=== PATIENT | female | born 1980 | race American Indian/Alaskan Native ===

== ENCOUNTER 2019-09-14 12:06 | Inpatient (IN) | payer MEDICAID ==
[2019-09-14] MEDS ORDERED: IPRATROPIUM 0.02% NEBU 2.5 ML IH ONE (12:32)
[2019-09-14] MEDS ORDERED: ALBUTEROL 2.5 MG/3 ML NEBU IH ONE ×2 (12:32→14:24)
[2019-09-14] MEDS ORDERED: methylPREDNISolone Sod Succinate 125 MG/2 ML INJ IV ONE (12:32)
[2019-09-14 13:02] LABS: Mean Corpuscular HGB Conc 29 % (30-34); Mean Corpuscular Volume 83 fl (79-97); Platelet Count 181 K/mm3 (140-440); Red Blood Count 4.31 M/mm3 (3.65-5.03); Red Cell Distribution Width 18.2 % (13.2-15.2)
[2019-09-14 13:11] LABS: INR 1.02 (0.87-1.13)
[2019-09-14 13:12] LABS: Hematocrit 35.8 % (30.3-42.9); Hemoglobin 10.4 gm/dl (10.1-14.3)
[2019-09-14 13:14] LABS: Partial Thromboplastin Time 27.5 Sec. (24.2-36.6)
[2019-09-14 13:22] LABS: Alanine Aminotransferase 10 units/L (7-56); Albumin 3.4 g/dL (3.9-5); BUN/Creatinine Ratio 30; Blood Urea Nitrogen 12 mg/dL (7-17); Calcium 9.3 mg/dL (8.4-10.2); Hemolysis Index 0
--- NOTE | 2019-09-14 14:19 | XRay Report ---
CHEST 1 VIEW 09/14/2019 1:49 PM INDICATION / CLINICAL INFORMATION: dyspnea. COMPARISON: None available. FINDINGS: Exam is suboptimal secondary to underpenetration from and large body habitus. SUPPORT DEVICES: None. HEART / MEDIASTINUM: Cardiac silhouette is enlarged for AP technique. LUNGS / PLEURA: No significant pulmonary or pleural abnormality. No pneumothorax. ADDITIONAL FINDINGS: No significant additional findings. IMPRESSION: 1. Cardiomegaly without definite CHF Signer Name: Buzz Shen MD Signed: 09/14/2019 2:14 PM Workstation Name: [id number]
--- NOTE | 2019-09-14 14:26 | Emergency Department Report ---
ED Shortness of Breath HPI - General Chief Complaint: Dyspnea/Respdistress Stated Complaint: JANELL Time Seen by Provider: 09/14/19 12:25 Source: EMS Mode of arrival: Ambulatory Limitations: No Limitations - History of Present Illness MD Complaint: shortness of breath -: Gradual, week(s) Severity: severe Pain Scale: 6 Consistency: constant Improves With: rest Worsens With: exertion Known History Of: COPD (Reports non-compliant with home O2) Context: recent URI Associated Symptoms: cough, sputum production - Related Data Allergies Allergy/AdvReac Type Severity Reaction Status Date / Time No Known Allergies Allergy Verified 09/14/19 12:57 ED Review of Systems ROS: Stated complaint: JANELL Other details as noted in HPI Other: GENERAL: No weight change, fatigue, fever, chills, or night sweats SKIN: No changes in skin or hair, no itching, no rashes, no jaundice HEAD: No trauma EYES: No blurriness, tearing, itching, acute visual loss, conjunctival discoloration, or scleral icterus EARS: No hearing loss, tinnitus, vertigo, or earache NOSE: No rhinorrhea, stuffiness, sneezing, itching, or epistaxis MOUTH: No bleeding gums, hoarseness, sore throat, or swelling CARDIAC: No new murmur, chest pain, palpitations, dyspnea on exertion, orthopnea, PND, or edema RESPIRATORY: Shortness of breath, wheeze, cough, sputum production. Denies hemoptysis GI: No nausea, vomiting, dysphagia, diarrhea, constipation, hematemesis, melena, hematochezia, or abdominal pain URINARY: No frequency, urgency, polyuria, dysuria, hematuria, or incontinence MUSCULOSKELETAL: No muscle weakness, joint stiffness, decrease in range of motion, redness, swelling NEUROLOGIC: No headache, syncope, loss of sensation, numbness, tingling, tremors, weakness, paralysis, seizures HEMATOLOGIC: No anemia, easy bruising, bleeding, petechiae, or purpura ENDOCRINE: No hot or cold intolerance, sweating, polyuria, polydipsia or, polyphagia no thyroid problems ED Past Medical Hx - Past Medical History Previous Medical History?: Yes Hx Hypertension: Yes Hx CVA: No Hx Heart Attack/AMI: No Hx Congestive Heart Failure: Yes Hx Diabetes: No Hx Deep Vein Thrombosis: No Hx Pulmonary Embolism: No Hx GERD: No Hx Liver Disease: No Hx Renal Disease: No Hx of Cancer: No Hx Sickle Cell Disease: No Hx Arthritis: No Hx Headaches / Migraines: No Hx Seizures: No Hx Kidney Stones: No Hx Psychiatric Treatment: No Hx Asthma: No Hx COPD: No Hx Tuberculosis: No Hx Dementia: No Hx HIV: No - Surgical History Past Surgical History?: Yes Hx Coronary Stent: No Hx Open Heart Surgery: No Hx Internal Defibrillator: No Hx Cholecystectomy: No Hx Appendectomy: No Hx Breast Surgery: No - Social History Smoking Status: Never Smoker Substance Use Type: None ED Physical Exam - General Limitations: No Limitations - Other Other exam information: GENERAL: Patient in no acute distress HEAD: Normocephalic, atraumatic EYES: PERRLA, EOM intact, no scleral icterus, no conjunctival hemorrhage, visual arnold and acuity wnl NOSE: No tenderness, discharge, sinus tenderness MOUTH: No erythema, bleeding, exudate HEART: Regular rate and rhythm, no murmur, S1-S2 are auscultated, no edema, pulses are symmetric LUNGS: Mild bilateral wheezing. No respiratory distress. Bilateral breath sounds, No tachypnea, No retractions, No rales, rhonchi ABDOMEN: Normal bowel sounds, abdomen soft, no tenderness, no rebound, no guarding, no distention, no masses, no CVA tenderness MUSCULOSKELETAL: Normal joint range of motion, no redness, no swelling, no tenderness NEUROLOGIC: GCS 15, Alert and Oriented, Cranial nerves intact, normal sensation, normal strength, no cerebellar deficit, NIHSS 0 PSYCHIATRIC: No homicidal or suicidal ideation, no anxiety, no depression, no hallucinations SKIN: Skin is warm and dry, no wounds, no rashes ED Course Vital Signs 09/14/19 09/14/19 09/14/19 12:15 12:27 12:30 Temperature 98.6 F Pulse Rate 99 H 100 H 99 H Pulse Rate [ Anterior Bilateral Throughout] Respiratory 13 39 H 35 H Rate Respiratory Rate [Anterior Bilateral Throughout] Blood Pressure 159/67 159/67 O2 Sat by Pulse 90 100 91 Oximetry 09/14/19 09/14/19 09/14/19 12:37 12:46 13:00 Temperature Pulse Rate 100 H 94 H Pulse Rate [ Anterior Bilateral Throughout] Respiratory 18 27 H 36 H Rate Respiratory Rate [Anterior Bilateral Throughout] Blood Pressure 159/67 159/67 O2 Sat by Pulse 100 92 95 Oximetry 09/14/19 09/14/19 09/14/19 13:02 13:16 13:30 Temperature Pulse Rate 98 H 98 H Pulse Rate [ 93 H Anterior Bilateral Throughout] Respiratory 27 H 35 H Rate Respiratory 28 H Rate [Anterior Bilateral Throughout] Blood Pressure 111/69 111/69 O2 Sat by Pulse 87 89 Oximetry 09/14/19 09/14/19 09/14/19 13:46 14:00 14:11 Temperature Pulse Rate 98 H 95 H 96 H Pulse Rate [ Anterior Bilateral Throughout] Respiratory 26 H 38 H 33 H Rate Respiratory Rate [Anterior Bilateral Throughout] Blood Pressure 111/69 111/69 129/101 O2 Sat by Pulse 84 85 93 Oximetry 09/14/19 09/14/19 09/14/19 14:16 14:30 14:46 Temperature Pulse Rate 99 H 99 H 99 H Pulse Rate [ Anterior Bilateral Throughout] Respiratory 30 H 29 H 28 H Rate Respiratory Rate [Anterior Bilateral Throughout] Blood Pressure 129/101 129/101 129/101 O2 Sat by Pulse 92 91 92 Oximetry 09/14/19 09/14/19 09/14/19 15:00 15:16 15:30 Temperature Pulse Rate 98 H 101 H 100 H Pulse Rate [ Anterior Bilateral Throughout] Respiratory 35 H 38 H 34 H Rate Respiratory Rate [Anterior Bilateral Throughout] Blood Pressure 149/86 149/86 149/86 O2 Sat by Pulse 90 91 89 Oximetry 09/14/19 09/14/19 09/14/19 15:41 15:46 16:00 Temperature Pulse Rate 101 H 101 H Pulse Rate [ 106 H Anterior Bilateral Throughout] Respiratory 40 H 34 H Rate Respiratory 30 H Rate [Anterior Bilateral Throughout] Blood Pressure 149/86 152/83 O2 Sat by Pulse 85 85 Oximetry 09/14/19 09/14/19 09/14/19 16:16 16:28 16:30 Temperature Pulse Rate 95 H 98 H 97 H Pulse Rate [ Anterior Bilateral Throughout] Respiratory 33 H 27 H 29 H Rate Respiratory Rate [Anterior Bilateral Throughout] Blood Pressure 152/83 152/83 152/83 O2 Sat by Pulse 80 L 94 94 Oximetry 09/14/19 09/14/19 09/14/19 16:46 17:00 17:16 Temperature Pulse Rate 96 H 91 H 94 H Pulse Rate [ Anterior Bilateral Throughout] Respiratory 34 H 32 H 32 H Rate Respiratory Rate [Anterior Bilateral Throughout] Blood Pressure 152/83 147/80 147/80 O2 Sat by Pulse 91 94 92 Oximetry 09/14/19 09/14/19 09/14/19 17:30 17:46 18:00 Temperature Pulse Rate 94 H 101 H 101 H Pulse Rate [ Anterior Bilateral Throughout] Respiratory 33 H 38 H 31 H Rate Respiratory Rate [Anterior Bilateral Throughout] Blood Pressure 147/80 147/80 171/93 O2 Sat by Pulse 91 90 85 Oximetry 09/14/19 18:15 Temperature Pulse Rate 106 H Pulse Rate [ Anterior Bilateral Throughout] Respiratory 20 Rate Respiratory Rate [Anterior Bilateral Throughout] Blood Pressure 171/93 O2 Sat by Pulse 91 Oximetry ED Medical Decision Making - Lab Data Result diagrams: 09/15/19 07:35 09/15/19 07:35 Respiratory reports that the patient's pCO2 level is approximately ~130s. - EKG Data When compared to previous EKG there are: no significant change - Radiology Data Radiology results: report reviewed - Medical Decision Making Patient comfortable. Updated with results. Plan admit for further evaluation. Hospitalist updated and accepts admission. Critical Care Time: Yes Critical care time in (mins) excluding proc time.: 42 Critical care attestation.: If time is entered above; I have spent that time in minutes in the direct care of this critically ill patient, excluding procedure time. 42 ED Disposition Clinical Impression: COPD exacerbation, Acute respiratory failure with hypoxia and hypercarbia Disposition: OP ADMIT IP TO THIS HOSP Is pt being admited?: Yes Condition: Stable
[2019-09-14 14:29] LABS: Anisocytosis Few; Large Platelets Rare; Platelet Estimate Consistent w Auto; Total Cells Counted 100
[2019-09-14] MEDS ORDERED: ACETAMINOPHEN 325 MG TAB PO PRN (15:00)
[2019-09-14] MEDS ORDERED: ONDANSETRON 4 MG/2 ML INJ IV PRN ×2 (15:00→21:37)
[2019-09-14] MEDS ORDERED: METOCLOPRAMIDE 10 MG/2 ML INJ IV PRN (21:37)
--- NOTE | 2019-09-14 21:37 | History and Physical Report ---
History of Present Illness Date of examination: 09/14/19 Date of admission: 09/14/19 15:00 Chief complaint: SOB for one day. History of present illness: Increasing SOB for 1 day.Associated with Wheezing.Cough productive of mucoid sputum.Patient has pickwickian syndrome.Patient with Morbid obesity weighing more than 500 lbs.No fever or chills.No recent travel.No exacerbating or relieving factors. Past Medical History Previous Medical History?: Yes Hypertension: Yes Congestive Heart Failure: Yes Surgical History No Social History Smoking Status: Never Smoker Substance Use Type: None Family History Htn Review of Systems ROS: Stated complaint: JANELL Other details as noted in HPI Medications and Allergies Allergies Allergy/AdvReac Type Severity Reaction Status Date / Time No Known Allergies Allergy Verified 09/14/19 12:57 Active Meds: Active Medications Acetaminophen (Tylenol) 650 mg PO Q4H PRN PRN Reason: Pain MILD(1-3)/Fever >100.5/DOMINIQUE Ondansetron HCl (Zofran) 4 mg IV Q8H PRN PRN Reason: Nausea And Vomiting Sodium Chloride (Sodium Chloride Flush Syringe 10 Ml) 10 ml IV BID DEMOND Sodium Chloride (Sodium Chloride Flush Syringe 10 Ml) 10 ml IV PRN PRN PRN Reason: LINE FLUSH Exam - Constitutional Vitals: Temp Pulse Resp BP Pulse Ox 98.2 F 96 H 20 134/68 93 09/14/19 20:10 09/14/19 20:00 09/14/19 18:15 09/14/19 20:00 09/14/19 20:00 General appearance: Present: severe distress, well-nourished - EENT Eyes: Present: PERRL ENT: hearing intact, clear oral mucosa - Neck Neck: Present: supple, normal ROM - Respiratory Respiratory effort: normal Respiratory: bilateral: diminished, rhonchi, wheezing - Cardiovascular Heart rate: 98 Rhythm: regular Heart Sounds: Present: S1 & S2. Absent: rub, click - Extremities Extremities: no ischemia, pulses intact, pulses symmetrical, No edema Extremity abnormal: edema Peripheral Pulses: within normal limits - Abdominal General gastrointestinal: Present: soft, non-tender, non-distended, normal bowel sounds Female genitourinary: Present: normal - Integumentary Integumentary: Present: clear, warm, dry - Musculoskeletal Musculoskeletal: gait normal, strength equal bilaterally - Psychiatric Psychiatric: appropriate mood/affect, intact judgment & insight - Neurologic Neurologic: CNII-XII intact, moves all extremities - Allied Health Allied health notes reviewed: nursing, case management Results - Labs CBC & Chem 7: 09/14/19 12:43 09/14/19 12:43 Labs: Laboratory Last Values WBC 11.4 K/mm3 (4.5-11.0) H 09/14/19 12:43 RBC 4.31 M/mm3 (3.65-5.03) 09/14/19 12:43 Hgb 10.4 gm/dl (10.1-14.3) 09/14/19 12:43 Hct 35.8 % (30.3-42.9) 09/14/19 12:43 MCV 83 fl (79-97) 09/14/19 12:43 MCH 24 pg (28-32) L 09/14/19 12:43 MCHC 29 % (30-34) L 09/14/19 12:43 RDW 18.2 % (13.2-15.2) H 09/14/19 12:43 Plt Count 181 K/mm3 (140-440) 09/14/19 12:43 Add Manual Diff Complete 09/14/19 12:43 Total Counted 100 09/14/19 12:43 Seg Neuts % (Manual) 84.0 % (40.0-70.0) H 09/14/19 12:43 Band Neutrophils % 0 % 09/14/19 12:43 Lymphocytes % (Manual) 11.0 % (13.4-35.0) L 09/14/19 12:43 Reactive Lymphs % (Man) 0 % 09/14/19 12:43 Monocytes % (Manual) 3.0 % (0.0-7.3) 09/14/19 12:43 Eosinophils % (Manual) 1.0 % (0.0-4.3) 09/14/19 12:43 Basophils % (Manual) 1.0 % (0.0-1.8) 09/14/19 12:43 Metamyelocytes % 0 % 09/14/19 12:43 Myelocytes % 0 % 09/14/19 12:43 Promyelocytes % 0 % 09/14/19 12:43 Blast Cells % 0 % 09/14/19 12:43 Nucleated RBC % 3.0 % (0.0-0.9) H 09/14/19 12:43 Seg Neutrophils # Man 9.6 K/mm3 (1.8-7.7) H 09/14/19 12:43 Band Neutrophils # 0.0 K/mm3 09/14/19 12:43 Lymphocytes # (Manual) 1.3 K/mm3 (1.2-5.4) 09/14/19 12:43 Abs React Lymphs (Man) 0.0 K/mm3 09/14/19 12:43 Monocytes # (Manual) 0.3 K/mm3 (0.0-0.8) 09/14/19 12:43 Eosinophils # (Manual) 0.1 K/mm3 (0.0-0.4) 09/14/19 12:43 Basophils # (Manual) 0.1 K/mm3 (0.0-0.1) 09/14/19 12:43 Metamyelocytes # 0.0 K/mm3 09/14/19 12:43 Myelocytes # 0.0 K/mm3 09/14/19 12:43 Promyelocytes # 0.0 K/mm3 09/14/19 12:43 Blast Cells # 0.0 K/mm3 09/14/19 12:43 WBC Morphology Not Reportable 09/14/19 12:43 Hypersegmented Neuts Not Reportable 09/14/19 12:43 Hyposegmented Neuts Not Reportable 09/14/19 12:43 Hypogranular Neuts Not Reportable 09/14/19 12:43 Smudge Cells Not Reportable 09/14/19 12:43 Toxic Granulation Not Reportable 09/14/19 12:43 Toxic Vacuolation Not Reportable 09/14/19 12:43 Dohle Bodies Not Reportable 09/14/19 12:43 Pelger-Huet Anomaly Not Reportable 09/14/19 12:43 Antione Rods Not Reportable 09/14/19 12:43 Platelet Estimate Consistent w auto 09/14/19 12:43 Clumped Platelets Not Reportable 09/14/19 12:43 Plt Clumps, EDTA Not Reportable 09/14/19 12:43 Large Platelets Rare 09/14/19 12:43 Giant Platelets Not Reportable 09/14/19 12:43 Platelet Satelliting Not Reportable 09/14/19 12:43 Plt Morphology Comment Not Reportable 09/14/19 12:43 RBC Morphology Not Reportable 09/14/19 12:43 Dimorphic RBCs Not Reportable 09/14/19 12:43 Polychromasia Not Reportable 09/14/19 12:43 Hypochromasia Not Reportable 09/14/19 12:43 Poikilocytosis Not Reportable 09/14/19 12:43 Anisocytosis Few 09/14/19 12:43 Microcytosis Not Reportable 09/14/19 12:43 Macrocytosis Not Reportable 09/14/19 12:43 Spherocytes Not Reportable 09/14/19 12:43 Pappenheimer Bodies Not Reportable 09/14/19 12:43 Sickle Cells Not Reportable 09/14/19 12:43 Target Cells Not Reportable 09/14/19 12:43 Tear Drop Cells Not Reportable 09/14/19 12:43 Ovalocytes Not Reportable 09/14/19 12:43 Helmet Cells Not Reportable 09/14/19 12:43 [place] Bodies Not Reportable 09/14/19 12:43 [place] Rings Not Reportable 09/14/19 12:43 [place] Cells Not Reportable 09/14/19 12:43 Bite Cells Not Reportable 09/14/19 12:43 Crenated Cell Not Reportable 09/14/19 12:43 Elliptocytes Not Reportable 09/14/19 12:43 Acanthocytes (Spur) Not Reportable 09/14/19 12:43 Rouleaux Not Reportable 09/14/19 12:43 Hemoglobin C Crystals Not Reportable 09/14/19 12:43 Schistocytes Not Reportable 09/14/19 12:43 Malaria parasites Not Reportable 09/14/19 12:43 [place] Bodies Not Reportable 09/14/19 12:43 Hem Pathologist Commnt No 09/14/19 12:43 PT 13.3 Sec. (12.2-14.9) 09/14/19 12:43 INR 1.02 (0.87-1.13) 09/14/19 12:43 APTT 27.5 Sec. (24.2-36.6) 09/14/19 12:43 POC ABG pH 7.212 (7.35-7.45) L 09/14/19 13:58 POC ABG pO2 55 (80-105) L 09/14/19 13:58 FiO2 40 % 09/14/19 13:58 Sodium 143 mmol/L (137-145) 09/14/19 12:43 Potassium 4.7 mmol/L (3.6-5.0) 09/14/19 12:43 Chloride 88.5 mmol/L (98-107) L 09/14/19 12:43 Carbon Dioxide 44 mmol/L (22-30) H* 09/14/19 12:43 Anion Gap 15 mmol/L 09/14/19 12:43 BUN 12 mg/dL (7-17) 09/14/19 12:43 Creatinine 0.4 mg/dL (0.7-1.2) L 09/14/19 12:43 Estimated GFR > 60 ml/min 09/14/19 12:43 BUN/Creatinine Ratio 30 % 09/14/19 12:43 Glucose 100 mg/dL (65-100) 09/14/19 12:43 Calcium 9.3 mg/dL (8.4-10.2) 09/14/19 12:43 Total Bilirubin 0.40 mg/dL (0.1-1.2) 09/14/19 12:43 AST 11 units/L (5-40) 09/14/19 12:43 ALT 10 units/L (7-56) 09/14/19 12:43 Alkaline Phosphatase 65 units/L (35-129) 09/14/19 12:43 Total Creatine Kinase 47 units/L (30-135) 09/14/19 12:43 Troponin T < 0.010 ng/mL (0.00-0.029) 09/14/19 12:43 NT-Pro-B Natriuret Pep 112.7 pg/mL (0-450) 09/14/19 12:43 Total Protein 9.0 g/dL (6.3-8.2) H 09/14/19 12:43 Albumin 3.4 g/dL (3.9-5) L 09/14/19 12:43 Albumin/Globulin Ratio 0.6 % 09/14/19 12:43 - Imaging and Cardiology EKG: report reviewed Chest x-ray: report reviewed (Cardiomegaly without CHF) Assessment and Plan Assessment and plan: CCT 35 min Advance Directives: Yes (Full code) VTE prophylaxis?: Chemical Plan of care discussed with patient/family: Yes - Patient Problems (1) Acute respiratory failure with hypoxia and hypercarbia Current Visit: Yes Status: Acute Plan to address problem: Patient on Bipap Intubation if necessary IV Solumedrol Neb Tx RTC and PRN IV Levaquin for now Admission to [facility] Clinical Appeals Specialist/pulmonary consult (2) COPD exacerbation Current Visit: Yes Status: Acute Plan to address problem: Neb tx IV Solumedrol and IVantibiotics Bipap for now Intubation if necessary (3) CHF (congestive heart failure) Current Visit: Yes Status: Chronic Qualifiers: Heart failure type: combined systolic and diastolic Heart failure chronicity: acute on chronic Qualified Code(s): I50.43 - Acute on chronic combined systolic (congestive) and diastolic (congestive) heart failure Plan to address problem: IV lasix for now (4) DVT prophylaxis Current Visit: Yes Status: Acute Plan to address problem: On Lovenox and GI prophylaxis
[2019-09-14] MEDS ORDERED: IPRATROPIUM/ALBUTEROL SULFATE 3 ML AMPUL.NEB IH PRN (21:39)
[2019-09-14] MEDS ORDERED: ALBUTEROL 2.5 MG/3 ML NEBU IH PRN ×2 (21:39→23:15)
[2019-09-14] MEDS: FAMOTIDINE 20 MG/2 ML INJ IV SCH (22:27)
[2019-09-14] MEDS: methylPREDNISolone Sod Succinate 125 MG/2 ML INJ IV SCH (22:27)
[2019-09-15] MEDS: methylPREDNISolone Sod Succinate 125 MG/2 ML INJ IV SCH ×3 (05:23→22:41)
[2019-09-15] MEDS: IPRATROPIUM/ALBUTEROL SULFATE 3 ML AMPUL.NEB IH SCH ×4 (08:22→23:03)
[2019-09-15 08:31] LABS: Mean Corpuscular HGB Conc 29 % (30-34); Mean Corpuscular Volume 83 fl (79-97); Platelet Count 182 K/mm3 (140-440); Red Blood Count 4.09 M/mm3 (3.65-5.03)
[2019-09-15 08:33] LABS: Hematocrit 34.1 % (30.3-42.9); Hemoglobin 9.7 gm/dl (10.1-14.3)
[2019-09-15 08:45] LABS: Alanine Aminotransferase 9 units/L (7-56); Albumin 3.3 g/dL (3.9-5); BUN/Creatinine Ratio 30; Blood Urea Nitrogen 12 mg/dL (7-17); Calcium 9.6 mg/dL (8.4-10.2); Hemolysis Index 3
[2019-09-15 09:29] LABS: Basophils % (Manual) 0 % (0.0-1.8); Eosinophils % (Manual) 0 % (0.0-4.3); Total Cells Counted 100
[2019-09-15 09:31] LABS: Anisocytosis Few; Hypochromasia 1+; Large Platelets Rare
[2019-09-15 09:32] LABS: Platelet Estimate Consistent w Auto
[2019-09-15] MEDS ORDERED: POTASSIUM CHLORIDE ER 20 MEQ TAB PO SCH (10:00)
[2019-09-15] MEDS: FAMOTIDINE 20 MG/2 ML INJ IV SCH ×2 (10:00→22:38)
[2019-09-15] MEDS ORDERED: ALBUTEROL 2.5 MG/3 ML NEBU IH PRN (16:08)
--- NOTE | 2019-09-15 16:38 | Progress Note ---
Assessment and Plan Assessment and plan: --Acute respiratory failure with hypoxia and hypercarbia Current Visit: Yes Status: Acute Patient on Bipap , oxygen titrate O2 sats to more than 90% Probably secondary to obesity hypoventilation and obstructive sleep apnea Intubate as needed, and pulmonary following Nebulizers, IV steroids, IV antibiotics, inhalation steroids BiPAP as needed, advised weight reduction and medically stable, pulmonary critical following --Obesity hypoventilation syndrome; Current Visit: Yes Status: Acute Oxygen nebulizers and IV steroids and antibiotics and inhalation steroids --obstructive sleep apnea: Current Visit: Yes Status: Acute CPAP BiPAP at night, and daytime as needed. Needs outpatient sleep study -- COPD exacerbation. Current Visit: Yes Status: Acute Neb tx IV Solumedrol and IVantibiotics Oxygen titrated to more than 90%, IV steroids Nebulizers, supportive care -- CHF (congestive heart failure) Current Visit: Yes Status: Chronic IV lasix for now, echocardiogram, LV function ejection fraction. -- Morbid obesity BMI 73.2. Current Visit: Yes Status: Chronic. Advised weight reduction when medically stable Recommend outpatient bariatric surgical evaluation for weight reduction program when medically stable --DVT prophylaxis. Current Visit: Yes Status: Acute On Lovenox GI prophylaxis; Pepcid. --Full code Status Monitor clinically and adjust the management as needed Discharge planning. Case management Plan of care is reviewed with the patient and the family members at the bedside as well as her nurse Critical care time 32 minutes History Interval history: Patient was admitted with worsening shortness of breath and respiratory distress Requiring BiPAP, patient feels slightly better today Still is short of breath and increased wheezing Morbidly obese 59-year-old female patient Alert awake oriented 3 Vital signs reviewed Hospitalist Physical - Constitutional Vitals: Temp Pulse Resp BP Pulse Ox 97.8 F 93 H 20 113/60 91 09/15/19 12:00 09/15/19 16:03 09/15/19 16:03 09/15/19 08:17 09/15/19 16:09 General appearance: Present: severe distress, well-nourished - EENT Eyes: Present: PERRL, EOM intact - Neck Neck: Present: supple, normal ROM - Respiratory Respiratory effort: labored Respiratory: bilateral: diminished, rhonchi, negative: rales, wheezing - Cardiovascular Rhythm: regular Heart Sounds: Present: S1 & S2 - Extremities Extremities: no ischemia, No edema - Abdominal General gastrointestinal: soft, non-tender, non-distended, normal bowel sounds, hypoactive bowel sounds - Integumentary Integumentary: Present: clear, warm - Psychiatric Psychiatric: appropriate mood/affect, cooperative - Neurologic Neurologic: moves all extremities Results - Labs CBC & Chem 7: 09/15/19 07:35 09/15/19 07:35 Labs: Laboratory Last Values WBC 12.0 K/mm3 (4.5-11.0) H 09/15/19 07:35 RBC 4.09 M/mm3 (3.65-5.03) 09/15/19 07:35 Hgb 9.7 gm/dl (10.1-14.3) L 09/15/19 07:35 Hct 34.1 % (30.3-42.9) 09/15/19 07:35 MCV 83 fl (79-97) 09/15/19 07:35 MCH 24 pg (28-32) L 09/15/19 07:35 MCHC 29 % (30-34) L 09/15/19 07:35 RDW 18.0 % (13.2-15.2) H 09/15/19 07:35 Plt Count 182 K/mm3 (140-440) 09/15/19 07:35 Add Manual Diff Complete 09/15/19 07:35 Total Counted 100 09/15/19 07:35 Seg Neutrophils % Consumer Experience Consultant 09/15/19 07:35 Seg Neuts % (Manual) 91.0 % (40.0-70.0) H 09/15/19 07:35 Band Neutrophils % 0 % 09/15/19 07:35 Lymphocytes % (Manual) 5.0 % (13.4-35.0) L 09/15/19 07:35 Reactive Lymphs % (Man) 0 % 09/15/19 07:35 Monocytes % (Manual) 2.0 % (0.0-7.3) 09/15/19 07:35 Eosinophils % (Manual) 0 % (0.0-4.3) 09/15/19 07:35 Basophils % (Manual) 0 % (0.0-1.8) 09/15/19 07:35 Metamyelocytes % 2.0 % 09/15/19 07:35 Myelocytes % 0 % 09/15/19 07:35 Promyelocytes % 0 % 09/15/19 07:35 Blast Cells % 0 % 09/15/19 07:35 Nucleated RBC % 2.0 % (0.0-0.9) H 09/15/19 07:35 Seg Neutrophils # Man 10.9 K/mm3 (1.8-7.7) H 09/15/19 07:35 Band Neutrophils # 0.0 K/mm3 09/15/19 07:35 Lymphocytes # (Manual) 0.6 K/mm3 (1.2-5.4) L 09/15/19 07:35 Abs React Lymphs (Man) 0.0 K/mm3 09/15/19 07:35 Monocytes # (Manual) 0.2 K/mm3 (0.0-0.8) 09/15/19 07:35 Eosinophils # (Manual) 0.0 K/mm3 (0.0-0.4) 09/15/19 07:35 Basophils # (Manual) 0.0 K/mm3 (0.0-0.1) 09/15/19 07:35 Metamyelocytes # 0.2 K/mm3 09/15/19 07:35 Myelocytes # 0.0 K/mm3 09/15/19 07:35 Promyelocytes # 0.0 K/mm3 09/15/19 07:35 Blast Cells # 0.0 K/mm3 09/15/19 07:35 WBC Morphology Not Reportable 09/15/19 07:35 Hypersegmented Neuts Not Reportable 09/15/19 07:35 Hyposegmented Neuts Not Reportable 09/15/19 07:35 Hypogranular Neuts Not Reportable 09/15/19 07:35 Smudge Cells Not Reportable 09/15/19 07:35 Toxic Granulation Not Reportable 09/15/19 07:35 Toxic Vacuolation Not Reportable 09/15/19 07:35 Dohle Bodies Not Reportable 09/15/19 07:35 Pelger-Huet Anomaly Not Reportable 09/15/19 07:35 Antione Rods Not Reportable 09/15/19 07:35 Platelet Estimate Consistent w auto 09/15/19 07:35 Clumped Platelets Not Reportable 09/15/19 07:35 Plt Clumps, EDTA Not Reportable 09/15/19 07:35 Large Platelets Rare 09/15/19 07:35 Giant Platelets Not Reportable 09/15/19 07:35 Platelet Satelliting Not Reportable 09/15/19 07:35 Plt Morphology Comment Not Reportable 09/15/19 07:35 RBC Morphology Not Reportable 09/15/19 07:35 Dimorphic RBCs Not Reportable 09/15/19 07:35 Polychromasia Not Reportable 09/15/19 07:35 Hypochromasia 1+ 09/15/19 07:35 Poikilocytosis Not Reportable 09/15/19 07:35 Anisocytosis Few 09/15/19 07:35 Microcytosis Not Reportable 09/15/19 07:35 Macrocytosis Not Reportable 09/15/19 07:35 Spherocytes Not Reportable 09/15/19 07:35 Pappenheimer Bodies Not Reportable 09/15/19 07:35 Sickle Cells Not Reportable 09/15/19 07:35 Target Cells Not Reportable 09/15/19 07:35 Tear Drop Cells Not Reportable 09/15/19 07:35 Ovalocytes Not Reportable 09/15/19 07:35 Helmet Cells Not Reportable 09/15/19 07:35 [place] Bodies Not Reportable 09/15/19 07:35 [place] Rings Not Reportable 09/15/19 07:35 [place] Cells Not Reportable 09/15/19 07:35 Bite Cells Not Reportable 09/15/19 07:35 Crenated Cell Not Reportable 09/15/19 07:35 Elliptocytes Not Reportable 09/15/19 07:35 Acanthocytes (Spur) Not Reportable 09/15/19 07:35 Rouleaux Not Reportable 09/15/19 07:35 Hemoglobin C Crystals Not Reportable 09/15/19 07:35 Schistocytes Not Reportable 09/15/19 07:35 Malaria parasites Not Reportable 09/15/19 07:35 [place] Bodies Not Reportable 09/15/19 07:35 Hem Pathologist Commnt No 09/15/19 07:35 PT 13.3 Sec. (12.2-14.9) 09/14/19 12:43 INR 1.02 (0.87-1.13) 09/14/19 12:43 APTT 27.5 Sec. (24.2-36.6) 09/14/19 12:43 POC ABG pH 7.212 (7.35-7.45) L 09/14/19 13:58 POC ABG pO2 55 (80-105) L 09/14/19 13:58 FiO2 40 % 09/14/19 13:58 Sodium 146 mmol/L (137-145) H 09/15/19 07:35 Potassium 5.2 mmol/L (3.6-5.0) H 09/15/19 07:35 Chloride 88.7 mmol/L (98-107) L 09/15/19 07:35 Carbon Dioxide 49 mmol/L (22-30) H* 09/15/19 07:35 Anion Gap 14 mmol/L 09/15/19 07:35 BUN 12 mg/dL (7-17) 09/15/19 07:35 Creatinine 0.4 mg/dL (0.7-1.2) L 09/15/19 07:35 Estimated GFR > 60 ml/min 09/15/19 07:35 BUN/Creatinine Ratio 30 % 09/15/19 07:35 Glucose 101 mg/dL (65-100) H 09/15/19 07:35 Hemoglobin A1c 5.5 % (4-6) 09/14/19 12:43 Calcium 9.6 mg/dL (8.4-10.2) 09/15/19 07:35 Total Bilirubin 0.30 mg/dL (0.1-1.2) 09/15/19 07:35 AST 11 units/L (5-40) 09/15/19 07:35 ALT 9 units/L (7-56) 09/15/19 07:35 Alkaline Phosphatase 65 units/L (35-129) 09/15/19 07:35 Total Creatine Kinase 47 units/L (30-135) 09/14/19 12:43 Troponin T < 0.010 ng/mL (0.00-0.029) 09/14/19 12:43 NT-Pro-B Natriuret Pep 112.7 pg/mL (0-450) 09/14/19 12:43 Total Protein 7.8 g/dL (6.3-8.2) 09/15/19 07:35 Albumin 3.3 g/dL (3.9-5) L 09/15/19 07:35 Albumin/Globulin Ratio 0.7 % 09/15/19 07:35 Active Medications - Current Medications Current Medications: Generic Name Dose Route Start Last Admin Trade Name Freq PRN Reason Stop Dose Admin Acetaminophen 650 mg 09/14/19 21:37 Tylenol PO Q4H PRN Pain MILD(1-3)/Fever >100.5/DOMINIQUE Albuterol 2.5 mg 09/15/19 16:08 Proventil IH Q4H PRN Shortness Of Breath/ Wheezing Albuterol/Ipratropium 1 ampul 09/15/19 20:00 Duoneb *Not For Prn Use* IH TIDRT [facility] Arformoterol Tartrate 15 mcg 09/15/19 20:00 Brovana Nebu IH Q12HRT [facility] Budesonide 0.5 mg 09/15/19 20:00 Pulmicort IH Q12HRT [facility] Enoxaparin Sodium 40 mg 09/15/19 22:00 Enoxaparin SUB-Q QDAY@2200 [facility] Famotidine 20 mg 09/14/19 22:00 09/15/19 10:00 Pepcid IV 20 mg BID [facility] Administration Furosemide 40 mg 09/15/19 18:00 Lasix IV 0600,1800 [facility] Hydromorphone HCl 0.5 mg 09/14/19 21:37 Dilaudid IV Q3H PRN Pain , Severe (7-10) Levofloxacin/Dextrose 750 mg in 150 mls @ 100 mls/hr 09/14/19 22:00 09/14/19 22:27 Levaquin 750mg/150ml IV 100 mls/hr Q24HR@2200 [facility] Administration Protocol Methylprednisolone Sodium Succinate 125 mg 09/14/19 22:00 09/15/19 14:01 Solu-Medrol IV 125 mg Q8HR [facility] Administration Metoclopramide HCl 10 mg 09/14/19 21:37 Reglan IV Q6H PRN Nausea And Vomiting Ondansetron HCl 4 mg 09/14/19 21:37 Zofran IV Q8H PRN Nausea And Vomiting Oxycodone/Acetaminophen 1 tab 09/14/19 21:37 Percocet 5/325 PO Q6H PRN Pain, Moderate (4-6) Sodium Chloride 10 ml 09/14/19 22:00 09/15/19 10:00 Sodium Chloride Flush Syringe 10 Ml IV 10 ml BID [facility] Administration Sodium Chloride 10 ml 09/14/19 21:37 Sodium Chloride Flush Syringe 10 Ml IV PRN PRN LINE FLUSH
--- NOTE | 2019-09-15 17:47 | Consultation ---
History of Present Illness Consult date: 09/15/19 Requesting physician: BRITTANY EDGAR Reason for consult: dyspnea History of present illness: Morbidly obese 39 y/o female admitted with acute on chronic respiratory failure. Wears 4 liters at home. Currently on High Flow Nasal cannula at 35 and 100% FiO2. Patient does not know her diagnoses outside of CHF. She does smoke marijuana and cigarettes. Family at bedside. Past History Past Medical History: other (CHF and morbidly obese) Social history: smoking Medications and Allergies Allergies Allergy/AdvReac Type Severity Reaction Status Date / Time No Known Allergies Allergy Verified 09/14/19 12:57 Active Meds: Active Medications Acetaminophen (Tylenol) 650 mg PO Q4H PRN PRN Reason: Pain MILD(1-3)/Fever >100.5/DOMINIQUE Albuterol (Proventil) 2.5 mg IH Q4H PRN PRN Reason: Shortness Of Breath/ Wheezing Albuterol/Ipratropium (Duoneb *Not For Prn Use*) 1 ampul IH TIDRT [facility] Arformoterol Tartrate (Brovana Nebu) 15 mcg IH Q12HRT [facility] Budesonide (Pulmicort) 0.5 mg IH Q12HRT [facility] Enoxaparin Sodium (Enoxaparin) 40 mg SUB-Q QDAY@2200 [facility] Famotidine (Pepcid) 20 mg IV BID [facility] Last Admin: 09/15/19 10:00 Dose: 20 mg Documented by: Furosemide (Lasix) 40 mg IV 0600,1800 [facility] Hydromorphone HCl (Dilaudid) 0.5 mg IV Q3H PRN PRN Reason: Pain , Severe (7-10) Levofloxacin/Dextrose (Levaquin 750mg/150ml) 750 mg in 150 mls @ 100 mls/hr IV Q24HR@2200 [facility]; Protocol Last Admin: 09/14/19 22:27 Dose: 100 mls/hr Documented by: Methylprednisolone Sodium Succinate (Solu-Medrol) 80 mg IV Q6H [facility] Metoclopramide HCl (Reglan) 10 mg IV Q6H PRN PRN Reason: Nausea And Vomiting Ondansetron HCl (Zofran) 4 mg IV Q8H PRN PRN Reason: Nausea And Vomiting Oxycodone/Acetaminophen (Percocet 5/325) 1 tab PO Q6H PRN PRN Reason: Pain, Moderate (4-6) Sodium Chloride (Sodium Chloride Flush Syringe 10 Ml) 10 ml IV BID [facility] Last Admin: 09/15/19 10:00 Dose: 10 ml Documented by: Sodium Chloride (Sodium Chloride Flush Syringe 10 Ml) 10 ml IV PRN PRN PRN Reason: LINE FLUSH Review of Systems All systems: negative Physical Examination Vital signs: Vital Signs Pulse Resp Pulse Ox 99 H 13 90 09/14/19 12:15 09/14/19 12:15 09/14/19 12:15 General appearance: no acute distress, other (morbidly obese) Eyes: non-icteric Neck: other (extremely large in circumference) Effort: normal Ascultation: Bilateral: diminished breath sounds (secondary to body habitus) Percussion: Bilateral: not dull Tactile fremitus: Bilateral: diminished Cardiovascular: regular rate and rhythm Gastrointestinal: other (morbidly obese) Musculoskeletal: no deformities normal mental status, non-focal exam Results - Laboratory Findings CBC and BMP: 09/16/19 05:42 09/16/19 05:42 ABG POC ABG pH 7.212 (7.35-7.45) L 09/14/19 13:58 POC ABG pO2 55 (80-105) L 09/14/19 13:58 PT/INR, D-dimer PT 13.3 Sec. (12.2-14.9) 09/14/19 12:43 INR 1.02 (0.87-1.13) 09/14/19 12:43 Abnormal lab findings: Abnormal Labs 09/14/19 09/14/19 09/14/19 12:43 12:43 13:44 WBC 11.4 H Hgb MCH 24 L MCHC 29 L RDW 18.2 H Seg Neuts % (Manual) 84.0 H Lymphocytes % (Manual) 11.0 L Nucleated RBC % 3.0 H Seg Neutrophils # Man 9.6 H Lymphocytes # (Manual) POC ABG pH 7.207 L POC ABG pO2 59 L Sodium Potassium Chloride 88.5 L Carbon Dioxide 44 H* Creatinine 0.4 L Glucose Total Protein 9.0 H Albumin 3.4 L 09/14/19 09/15/19 09/15/19 13:58 07:35 07:35 WBC 12.0 H Hgb 9.7 L MCH 24 L MCHC 29 L RDW 18.0 H Seg Neuts % (Manual) 91.0 H Lymphocytes % (Manual) 5.0 L Nucleated RBC % 2.0 H Seg Neutrophils # Man 10.9 H Lymphocytes # (Manual) 0.6 L POC ABG pH 7.212 L POC ABG pO2 55 L Sodium 146 H Potassium 5.2 H Chloride 88.7 L Carbon Dioxide 49 H* Creatinine 0.4 L Glucose 101 H Total Protein Albumin 3.3 L - Diagnostic Findings Chest x-ray: image reviewed (CXR's are hard to interpret as patient is morbidly obese and her fatty tissue impeded penetration) Assessment and Plan 39 y/o morbidly obese female with acute on chronic respiratory failure ELLY and OHS 1. Must wear PPV anytime she is sleeping 2. Will stop steroids 3. Continue lasix therapy 4. May need diamox if CO2 continues to climb 5. Nutrition education
[2019-09-15] MEDS: ENOXAPARIN 40 MG/0.4 ML INJ SUB-Q SCH (22:38)
[2019-09-15] MEDS: BUDESONIDE 0.5 MG/2 ML NEBU IH SCH (23:03)
[2019-09-15] MEDS: ARFORMOTEROL 15 MCG/2 ML NEBU IH SCH (23:03)
[2019-09-16] MEDS: FUROSEMIDE 40 MG/4 ML INJ IV SCH ×3 (06:15→17:55)
[2019-09-16 06:17] LABS: Basophils % (Auto) 0.3 % (0.0-1.8); Lymphocytes # (Auto) 0.6 K/mm3 (1.2-5.4); Lymphocytes % (Auto) 6.2 % (13.4-35.0); Mean Corpuscular HGB Conc 30 % (30-34); Mean Corpuscular Volume 83 fl (79-97); Monocytes # (Auto) 0.5 K/mm3 (0.0-0.8); Monocytes % (Auto) 4.5 % (0.0-7.3); Platelet Count 179 K/mm3 (140-440); Red Blood Count 4.42 M/mm3 (3.65-5.03)
[2019-09-16] MEDS: methylPREDNISolone Sod Succinate 125 MG/2 ML INJ IV SCH ×2 (06:17→06:56)
[2019-09-16 06:22] LABS: Hematocrit 36.5 % (30.3-42.9); Hemoglobin 10.9 gm/dl (10.1-14.3)
[2019-09-16 06:25] LABS: Albumin 3.1 g/dL (3.9-5); BUN/Creatinine Ratio 38; Blood Urea Nitrogen 15 mg/dL (7-17); Calcium 9.5 mg/dL (8.4-10.2); Hemolysis Index 100
[2019-09-16 06:38] LABS: Alanine Aminotransferase 11 units/L (7-56)
--- NOTE | 2019-09-16 08:34 | Progress Note ---
Assessment and Plan Assessment and plan: --Acute respiratory failure with hypoxia and hypercarbia Current Visit: Yes Status: Acute Patient on Bipap , oxygen titrate O2 sats to more than 90% Secondary to obesity hypoventilation and obstructive sleep apnea Nebulizers, stop IV steroids IV antibiotics per pulm, BiPAP as needed, advised weight reduction when medically stable, pulmonary critical following --Obesity hypoventilation syndrome; Current Visit: Yes Status: Acute Oxygen nebulizers supportive care, --Hyperkalemia: calcium gluconate and Kayexalate, monitor electrolytes --Obstructive sleep apnea: Current Visit: Yes Status: Acute CPAP BiPAP at night, and daytime as needed. Needs outpatient sleep study on discharg -- Morbid obesity BMI 73.2. Current Visit: Yes Status: Chronic. Advised weight reduction when medically stable Recommend outpatient bariatric surgical evaluation for weight reduction program when medically stable --DVT prophylaxis. Current Visit: Yes Status: Acute On Lovenox GI prophylaxis; Pepcid. --Full code Status Monitor clinically and adjust the management as needed Discharge planning. Case management Plan of care is reviewed with the patient and the family members at the bedside as well as her nurse Critical care time 32 minutes History Interval history: Patient seen and examined medical records reviewed Patient feels slightly better mild shortness of breath On intermittent BiPAP and high flow oxygen Vital Signs noted Hospitalist Physical - Constitutional Vitals: Temp Pulse Resp BP Pulse Ox 98.8 F 77 23 132/66 95 09/16/19 03:41 09/16/19 06:00 09/16/19 06:00 09/16/19 06:00 09/16/19 07:58 General appearance: Present: mild distress, well-nourished - EENT Eyes: Present: PERRL, EOM intact - Neck Neck: Present: supple - Respiratory Respiratory: bilateral: diminished, rhonchi, negative: rales, wheezing - Cardiovascular Rhythm: regular Heart Sounds: Present: S1 & S2 - Extremities Extremities: no ischemia, No edema - Abdominal General gastrointestinal: soft, non-tender, non-distended, normal bowel sounds - Integumentary Integumentary: Present: clear, warm - Psychiatric Psychiatric: appropriate mood/affect, cooperative - Neurologic Neurologic: CNII-XII intact, moves all extremities Results - Labs CBC & Chem 7: 09/16/19 05:42 09/16/19 05:42 Labs: Laboratory Last Values WBC 10.3 K/mm3 (4.5-11.0) 09/16/19 05:42 RBC 4.42 M/mm3 (3.65-5.03) 09/16/19 05:42 Hgb 10.9 gm/dl (10.1-14.3) 09/16/19 05:42 Hct 36.5 % (30.3-42.9) 09/16/19 05:42 MCV 83 fl (79-97) 09/16/19 05:42 MCH 25 pg (28-32) L 09/16/19 05:42 MCHC 30 % (30-34) 09/16/19 05:42 RDW 18.0 % (13.2-15.2) H 09/16/19 05:42 Plt Count 179 K/mm3 (140-440) 09/16/19 05:42 Lymph % (Auto) 6.2 % (13.4-35.0) L 09/16/19 05:42 [place] % (Auto) 4.5 % (0.0-7.3) 09/16/19 05:42 Eos % (Auto) 0.0 % (0.0-4.3) 09/16/19 05:42 Baso % (Auto) 0.3 % (0.0-1.8) 09/16/19 05:42 Lymph # 0.6 K/mm3 (1.2-5.4) L 09/16/19 05:42 [place] # 0.5 K/mm3 (0.0-0.8) 09/16/19 05:42 Eos # 0.0 K/mm3 (0.0-0.4) 09/16/19 05:42 Baso # 0.0 K/mm3 (0.0-0.1) 09/16/19 05:42 Add Manual Diff Complete 09/15/19 07:35 Total Counted 100 09/15/19 07:35 Seg Neutrophils % 89.0 % (40.0-70.0) H 09/16/19 05:42 Seg Neuts % (Manual) 91.0 % (40.0-70.0) H 09/15/19 07:35 Band Neutrophils % 0 % 09/15/19 07:35 Lymphocytes % (Manual) 5.0 % (13.4-35.0) L 09/15/19 07:35 Reactive Lymphs % (Man) 0 % 09/15/19 07:35 Monocytes % (Manual) 2.0 % (0.0-7.3) 09/15/19 07:35 Eosinophils % (Manual) 0 % (0.0-4.3) 09/15/19 07:35 Basophils % (Manual) 0 % (0.0-1.8) 09/15/19 07:35 Metamyelocytes % 2.0 % 09/15/19 07:35 Myelocytes % 0 % 09/15/19 07:35 Promyelocytes % 0 % 09/15/19 07:35 Blast Cells % 0 % 09/15/19 07:35 Nucleated RBC % 2.0 % (0.0-0.9) H 09/15/19 07:35 Seg Neutrophils # 9.2 K/mm3 (1.8-7.7) H 09/16/19 05:42 Seg Neutrophils # Man 10.9 K/mm3 (1.8-7.7) H 09/15/19 07:35 Band Neutrophils # 0.0 K/mm3 09/15/19 07:35 Lymphocytes # (Manual) 0.6 K/mm3 (1.2-5.4) L 09/15/19 07:35 Abs React Lymphs (Man) 0.0 K/mm3 09/15/19 07:35 Monocytes # (Manual) 0.2 K/mm3 (0.0-0.8) 09/15/19 07:35 Eosinophils # (Manual) 0.0 K/mm3 (0.0-0.4) 09/15/19 07:35 Basophils # (Manual) 0.0 K/mm3 (0.0-0.1) 09/15/19 07:35 Metamyelocytes # 0.2 K/mm3 09/15/19 07:35 Myelocytes # 0.0 K/mm3 09/15/19 07:35 Promyelocytes # 0.0 K/mm3 09/15/19 07:35 Blast Cells # 0.0 K/mm3 09/15/19 07:35 WBC Morphology Not Reportable 09/15/19 07:35 Hypersegmented Neuts Not Reportable 09/15/19 07:35 Hyposegmented Neuts Not Reportable 09/15/19 07:35 Hypogranular Neuts Not Reportable 09/15/19 07:35 Smudge Cells Not Reportable 09/15/19 07:35 Toxic Granulation Not Reportable 09/15/19 07:35 Toxic Vacuolation Not Reportable 09/15/19 07:35 Dohle Bodies Not Reportable 09/15/19 07:35 Pelger-Huet Anomaly Not Reportable 09/15/19 07:35 Antione Rods Not Reportable 09/15/19 07:35 Platelet Estimate Consistent w auto 09/15/19 07:35 Clumped Platelets Not Reportable 09/15/19 07:35 Plt Clumps, EDTA Not Reportable 09/15/19 07:35 Large Platelets Rare 09/15/19 07:35 Giant Platelets Not Reportable 09/15/19 07:35 Platelet Satelliting Not Reportable 09/15/19 07:35 Plt Morphology Comment Not Reportable 09/15/19 07:35 RBC Morphology Not Reportable 09/15/19 07:35 Dimorphic RBCs Not Reportable 09/15/19 07:35 Polychromasia Not Reportable 09/15/19 07:35 Hypochromasia 1+ 09/15/19 07:35 Poikilocytosis Not Reportable 09/15/19 07:35 Anisocytosis Few 09/15/19 07:35 Microcytosis Not Reportable 09/15/19 07:35 Macrocytosis Not Reportable 09/15/19 07:35 Spherocytes Not Reportable 09/15/19 07:35 Pappenheimer Bodies Not Reportable 09/15/19 07:35 Sickle Cells Not Reportable 09/15/19 07:35 Target Cells Not Reportable 09/15/19 07:35 Tear Drop Cells Not Reportable 09/15/19 07:35 Ovalocytes Not Reportable 09/15/19 07:35 Helmet Cells Not Reportable 09/15/19 07:35 [place] Bodies Not Reportable 09/15/19 07:35 [place] Rings Not Reportable 09/15/19 07:35 [place] Cells Not Reportable 09/15/19 07:35 Bite Cells Not Reportable 09/15/19 07:35 Crenated Cell Not Reportable 09/15/19 07:35 Elliptocytes Not Reportable 09/15/19 07:35 Acanthocytes (Spur) Not Reportable 09/15/19 07:35 Rouleaux Not Reportable 09/15/19 07:35 Hemoglobin C Crystals Not Reportable 09/15/19 07:35 Schistocytes Not Reportable 09/15/19 07:35 Malaria parasites Not Reportable 09/15/19 07:35 [place]old[place] Bodies Not Reportable 09/15/19 07:35 Hem Pathologist Commnt No 09/15/19 07:35 PT 13.3 Sec. (12.2-14.9) 09/14/19 12:43 INR 1.02 (0.87-1.13) 09/14/19 12:43 APTT 27.5 Sec. (24.2-36.6) 09/14/19 12:43 POC ABG pH 7.212 (7.35-7.45) L 09/14/19 13:58 POC ABG pO2 55 (80-105) L 09/14/19 13:58 FiO2 40 % 09/14/19 13:58 Sodium 141 mmol/L (137-145) 09/16/19 05:42 Potassium 5.6 mmol/L (3.6-5.0) H 09/16/19 05:42 Chloride 86.8 mmol/L (98-107) L 09/16/19 05:42 Carbon Dioxide 50 mmol/L (22-30) H* 09/16/19 05:42 Anion Gap 11 mmol/L 09/16/19 05:42 BUN 15 mg/dL (7-17) 09/16/19 05:42 Creatinine 0.4 mg/dL (0.7-1.2) L 09/16/19 05:42 Estimated GFR > 60 ml/min 09/16/19 05:42 BUN/Creatinine Ratio 38 % 09/16/19 05:42 Glucose 117 mg/dL (65-100) H 09/16/19 05:42 Hemoglobin A1c 5.5 % (4-6) 09/14/19 12:43 Calcium 9.5 mg/dL (8.4-10.2) 09/16/19 05:42 Magnesium 2.30 mg/dL (1.7-2.3) 09/16/19 05:42 Total Bilirubin 0.30 mg/dL (0.1-1.2) 09/16/19 05:42 AST 21 units/L (5-40) 09/16/19 05:42 ALT 11 units/L (7-56) 09/16/19 05:42 Alkaline Phosphatase 57 units/L (35-129) 09/16/19 05:42 Total Creatine Kinase 47 units/L (30-135) 09/14/19 12:43 Troponin T < 0.010 ng/mL (0.00-0.029) 09/14/19 12:43 NT-Pro-B Natriuret Pep 112.7 pg/mL (0-450) 09/14/19 12:43 Total Protein 8.4 g/dL (6.3-8.2) H 09/16/19 05:42 Albumin 3.1 g/dL (3.9-5) L 09/16/19 05:42 Albumin/Globulin Ratio 0.6 % 09/16/19 05:42 Active Medications - Current Medications Current Medications: Generic Name Dose Route Start Last Admin Trade Name Freq PRN Reason Stop Dose Admin Acetaminophen 650 mg 09/14/19 21:37 Tylenol PO Q4H PRN Pain MILD(1-3)/Fever >100.5/DOMINIQUE Albuterol 2.5 mg 09/15/19 16:08 Proventil IH Q4H PRN Shortness Of Breath/ Wheezing Albuterol/Ipratropium 1 ampul 09/15/19 20:00 09/15/19 23:03 Duoneb *Not For Prn Use* IH Not Given TIDRT [facility] Arformoterol Tartrate 15 mcg 09/15/19 20:00 09/15/19 23:03 Brovana Nebu IH Not Given Q12HRT [facility] Budesonide 0.5 mg 09/15/19 20:00 09/15/19 23:03 Pulmicort IH Not Given Q12HRT [facility] Enoxaparin Sodium 40 mg 09/15/19 22:00 09/15/19 22:38 Enoxaparin SUB-Q 40 mg QDAY@2200 [facility] Administration Famotidine 20 mg 09/14/19 22:00 09/15/19 22:38 Pepcid IV 20 mg BID DEMOND Administration Furosemide 40 mg 09/15/19 18:00 09/16/19 06:56 Lasix IV 40 mg 0600,1800 DEMOND Administration Hydromorphone HCl 0.5 mg 09/14/19 21:37 Dilaudid IV Q3H PRN Pain , Severe (7-10) Levofloxacin/Dextrose 750 mg in 150 mls @ 100 mls/hr 09/14/19 22:00 09/15/19 22:38 Levaquin 750mg/150ml IV 100 mls/hr Q24HR@2200 DEMOND Administration Protocol Methylprednisolone Sodium Succinate 80 mg 09/15/19 17:00 09/16/19 06:56 Solu-Medrol IV 80 mg Q6H DEMOND Administration Metoclopramide HCl 10 mg 09/14/19 21:37 Reglan IV Q6H PRN Nausea And Vomiting Ondansetron HCl 4 mg 09/14/19 21:37 Zofran IV Q8H PRN Nausea And Vomiting Oxycodone/Acetaminophen 1 tab 09/14/19 21:37 Percocet 5/325 PO Q6H PRN Pain, Moderate (4-6) Sodium Chloride 10 ml 09/14/19 22:00 09/15/19 22:39 Sodium Chloride Flush Syringe 10 Ml IV 10 ml BID DEMOND Administration Sodium Chloride 10 ml 09/14/19 21:37 Sodium Chloride Flush Syringe 10 Ml IV PRN PRN LINE FLUSH
[2019-09-16] MEDS: IPRATROPIUM/ALBUTEROL SULFATE 3 ML AMPUL.NEB IH SCH ×3 (08:37→21:52)
[2019-09-16] MEDS: BUDESONIDE 0.5 MG/2 ML NEBU IH SCH ×2 (08:37→21:52)
[2019-09-16] MEDS: ARFORMOTEROL 15 MCG/2 ML NEBU IH SCH ×2 (08:37→21:52)
[2019-09-16] MEDS ORDERED: SODIUM POLYSTYRENE 15 GM/60 ML ORAL LIQD PO ONE (08:40)
[2019-09-16] MEDS: HYDROmorphone 1 MG/1 ML INJ IV PRN ×2 (08:45→22:02)
--- NOTE | 2019-09-16 09:49 | XRay Report ---
CHEST 1 VIEW INDICATION / CLINICAL INFORMATION: Hypoxemia. COMPARISON: None available. FINDINGS: SUPPORT DEVICES: None. HEART / MEDIASTINUM: Cardiomegaly LUNGS / PLEURA: Severe bilateral airspace disease worrisome for severe cardiopulmonary edema Signer Name: Patel Chavez MD Signed: 09/16/2019 9:45 AM Workstation Name: [id number]
--- NOTE | 2019-09-16 09:52 | Progress Note ---
Assessment and Plan 39 y/o morbidly obese female with acute on chronic respiratory failure ELLY and OHS 1. Must wear PPV anytime she is sleeping 2. Will stop steroids 3. Continue lasix therapy 4. May need diamox if CO2 continues to climb 5. Nutrition education Subjective Date of service: 09/16/19 Interval history: No acute events. Still on HFNC and 100%. No distress. Objective Vital Signs - 12hr 09/15/19 09/15/19 09/15/19 21:50 22:00 22:10 Temperature Pulse Rate 86 81 76 Pulse Rate [ Anterior Bilateral Throughout] Pulse Rate [ From Monitor] Respiratory 36 H 33 H 28 H Rate Respiratory Rate [Anterior Bilateral Throughout] Blood Pressure 118/73 135/72 135/72 O2 Sat by Pulse 97 89 95 Oximetry 09/15/19 09/15/19 09/15/19 22:20 22:30 22:40 Temperature Pulse Rate 73 83 76 Pulse Rate [ Anterior Bilateral Throughout] Pulse Rate [ From Monitor] Respiratory 31 H 21 10 L Rate Respiratory Rate [Anterior Bilateral Throughout] Blood Pressure 135/72 135/72 135/72 O2 Sat by Pulse 95 86 92 Oximetry 09/15/19 09/15/19 09/15/19 22:50 23:00 23:05 Temperature Pulse Rate 77 78 Pulse Rate [ Anterior Bilateral Throughout] Pulse Rate [ From Monitor] Respiratory 15 17 Rate Respiratory Rate [Anterior Bilateral Throughout] Blood Pressure 135/72 137/72 O2 Sat by Pulse 100 Oximetry 09/15/19 09/15/19 09/15/19 23:10 23:17 23:20 Temperature Pulse Rate 79 82 78 Pulse Rate [ Anterior Bilateral Throughout] Pulse Rate [ From Monitor] Respiratory 16 33 H 10 L Rate Respiratory Rate [Anterior Bilateral Throughout] Blood Pressure 137/72 137/72 O2 Sat by Pulse 100 95 Oximetry 09/15/19 09/15/19 09/15/19 23:26 23:29 23:30 Temperature 98.3 F Pulse Rate 78 80 Pulse Rate [ Anterior Bilateral Throughout] Pulse Rate [ From Monitor] Respiratory 29 H 11 L Rate Respiratory Rate [Anterior Bilateral Throughout] Blood Pressure 137/72 137/72 O2 Sat by Pulse Oximetry 09/15/19 09/15/19 09/16/19 23:40 23:50 00:00 Temperature Pulse Rate 77 78 86 Pulse Rate [ Anterior Bilateral Throughout] Pulse Rate [ From Monitor] Respiratory 19 19 26 H Rate Respiratory Rate [Anterior Bilateral Throughout] Blood Pressure 137/72 137/72 137/72 O2 Sat by Pulse 97 97 Oximetry 09/16/19 09/16/19 09/16/19 00:01 00:02 00:10 Temperature Pulse Rate 78 77 Pulse Rate [ Anterior Bilateral Throughout] Pulse Rate [ 75 From Monitor] Respiratory 18 36 H Rate Respiratory Rate [Anterior Bilateral Throughout] Blood Pressure 137/72 O2 Sat by Pulse 93 Oximetry 09/16/19 09/16/19 09/16/19 00:20 00:30 00:40 Temperature Pulse Rate 77 77 71 Pulse Rate [ Anterior Bilateral Throughout] Pulse Rate [ From Monitor] Respiratory 17 30 H 22 Rate Respiratory Rate [Anterior Bilateral Throughout] Blood Pressure 137/72 137/72 137/72 O2 Sat by Pulse Oximetry 09/16/19 09/16/19 09/16/19 00:50 01:00 01:10 Temperature Pulse Rate 70 75 81 Pulse Rate [ Anterior Bilateral Throughout] Pulse Rate [ From Monitor] Respiratory 22 28 H 18 Rate Respiratory Rate [Anterior Bilateral Throughout] Blood Pressure 137/72 115/63 115/63 O2 Sat by Pulse Oximetry 09/16/19 09/16/19 09/16/19 01:20 01:30 01:40 Temperature Pulse Rate 72 81 81 Pulse Rate [ Anterior Bilateral Throughout] Pulse Rate [ From Monitor] Respiratory 16 33 H 25 H Rate Respiratory Rate [Anterior Bilateral Throughout] Blood Pressure 115/63 115/63 115/63 O2 Sat by Pulse 96 Oximetry 09/16/19 09/16/19 09/16/19 01:50 02:00 02:10 Temperature Pulse Rate 74 78 82 Pulse Rate [ Anterior Bilateral Throughout] Pulse Rate [ From Monitor] Respiratory 24 29 H 31 H Rate Respiratory Rate [Anterior Bilateral Throughout] Blood Pressure 115/63 115/63 142/70 O2 Sat by Pulse 98 Oximetry 09/16/19 09/16/19 09/16/19 02:20 02:30 02:40 Temperature Pulse Rate 100 H 90 84 Pulse Rate [ Anterior Bilateral Throughout] Pulse Rate [ From Monitor] Respiratory 23 29 H 20 Rate Respiratory Rate [Anterior Bilateral Throughout] Blood Pressure 142/70 142/70 142/70 O2 Sat by Pulse 94 Oximetry 09/16/19 09/16/19 09/16/19 02:50 03:00 03:10 Temperature Pulse Rate 84 83 82 Pulse Rate [ Anterior Bilateral Throughout] Pulse Rate [ From Monitor] Respiratory 39 H 41 H 17 Rate Respiratory Rate [Anterior Bilateral Throughout] Blood Pressure 142/70 141/82 141/82 O2 Sat by Pulse 98 94 Oximetry 09/16/19 09/16/19 09/16/19 03:20 03:30 03:40 Temperature Pulse Rate 82 77 80 Pulse Rate [ Anterior Bilateral Throughout] Pulse Rate [ From Monitor] Respiratory 12 27 H 21 Rate Respiratory Rate [Anterior Bilateral Throughout] Blood Pressure 141/82 141/82 141/82 O2 Sat by Pulse 92 92 93 Oximetry 09/16/19 09/16/19 09/16/19 03:41 03:50 04:00 Temperature 98.8 F Pulse Rate 77 82 Pulse Rate [ Anterior Bilateral Throughout] Pulse Rate [ 83 From Monitor] Respiratory 35 H 15 Rate Respiratory Rate [Anterior Bilateral Throughout] Blood Pressure 141/82 119/82 O2 Sat by Pulse 93 97 Oximetry 09/16/19 09/16/19 09/16/19 04:10 04:20 04:30 Temperature Pulse Rate 78 83 79 Pulse Rate [ Anterior Bilateral Throughout] Pulse Rate [ From Monitor] Respiratory 12 20 36 H Rate Respiratory Rate [Anterior Bilateral Throughout] Blood Pressure 119/82 119/82 119/82 O2 Sat by Pulse 94 94 96 Oximetry 09/16/19 09/16/19 09/16/19 04:40 04:50 05:01 Temperature Pulse Rate 82 Pulse Rate [ Anterior Bilateral Throughout] Pulse Rate [ From Monitor] Respiratory 17 Rate Respiratory Rate [Anterior Bilateral Throughout] Blood Pressure 119/82 119/82 134/90 O2 Sat by Pulse 96 89 96 Oximetry 09/16/19 09/16/19 09/16/19 05:10 05:20 05:30 Temperature Pulse Rate Pulse Rate [ Anterior Bilateral Throughout] Pulse Rate [ From Monitor] Respiratory Rate Respiratory Rate [Anterior Bilateral Throughout] Blood Pressure 134/90 134/90 134/90 O2 Sat by Pulse 98 97 97 Oximetry 09/16/19 09/16/19 09/16/19 05:40 05:52 06:00 Temperature Pulse Rate 74 77 Pulse Rate [ Anterior Bilateral Throughout] Pulse Rate [ From Monitor] Respiratory 18 23 Rate Respiratory Rate [Anterior Bilateral Throughout] Blood Pressure 134/90 134/90 132/66 O2 Sat by Pulse 99 97 96 Oximetry 09/16/19 09/16/19 07:58 08:37 Temperature Pulse Rate Pulse Rate [ 84 Anterior Bilateral Throughout] Pulse Rate [ From Monitor] Respiratory Rate Respiratory 20 Rate [Anterior Bilateral Throughout] Blood Pressure O2 Sat by Pulse 95 Oximetry Constitutional: no acute distress, other (morbidly obese) Eyes: non-icteric Neck: other (extremely large in circumference) Effort: normal Ascultation: Bilateral: diminished breath sounds (secondary to body habitus) Percussion: Bilateral: not dull Tactile fremitus: Bilateral: diminished Cardiovascular: regular rate and rhythm Gastrointestinal: other (morbidly obese) Neurologic: normal mental status, non-focal exam CBC and BMP: 09/16/19 05:42 09/16/19 05:42 ABG, PT/INR, D-dimer: ABG POC ABG pH 7.212 (7.35-7.45) L 09/14/19 13:58 POC ABG pO2 55 (80-105) L 09/14/19 13:58 PT/INR, D-dimer PT 13.3 Sec. (12.2-14.9) 09/14/19 12:43 INR 1.02 (0.87-1.13) 09/14/19 12:43 Abnormal lab findings: Abnormal Labs 09/14/19 09/14/19 09/14/19 12:43 12:43 13:44 WBC 11.4 H Hgb MCH 24 L MCHC 29 L RDW 18.2 H Lymph % (Auto) Lymph # Seg Neutrophils % Seg Neuts % (Manual) 84.0 H Lymphocytes % (Manual) 11.0 L Nucleated RBC % 3.0 H Seg Neutrophils # Seg Neutrophils # Man 9.6 H Lymphocytes # (Manual) POC ABG pH 7.207 L POC ABG pO2 59 L Sodium Potassium Chloride 88.5 L Carbon Dioxide 44 H* Creatinine 0.4 L Glucose Total Protein 9.0 H Albumin 3.4 L 09/14/19 09/15/19 09/15/19 13:58 07:35 07:35 WBC 12.0 H Hgb 9.7 L MCH 24 L MCHC 29 L RDW 18.0 H Lymph % (Auto) Lymph # Seg Neutrophils % Seg Neuts % (Manual) 91.0 H Lymphocytes % (Manual) 5.0 L Nucleated RBC % 2.0 H Seg Neutrophils # Seg Neutrophils # Man 10.9 H Lymphocytes # (Manual) 0.6 L POC ABG pH 7.212 L POC ABG pO2 55 L Sodium 146 H Potassium 5.2 H Chloride 88.7 L Carbon Dioxide 49 H* Creatinine 0.4 L Glucose 101 H Total Protein Albumin 3.3 L 09/16/19 09/16/19 05:42 05:42 WBC Hgb MCH 25 L MCHC RDW 18.0 H Lymph % (Auto) 6.2 L Lymph # 0.6 L Seg Neutrophils % 89.0 H Seg Neuts % (Manual) Lymphocytes % (Manual) Nucleated RBC % Seg Neutrophils # 9.2 H Seg Neutrophils # Man Lymphocytes # (Manual) POC ABG pH POC ABG pO2 Sodium Potassium 5.6 H Chloride 86.8 L Carbon Dioxide 50 H* Creatinine 0.4 L Glucose 117 H Total Protein 8.4 H Albumin 3.1 L
[2019-09-16] MEDS ORDERED: CALCIUM GLUCONATE 1,000 MG in SODIUM CHLORIDE 0.9% 100 ML IV ONE (10:00)
[2019-09-16] MEDS: FAMOTIDINE 20 MG/2 ML INJ IV SCH ×2 (10:34→21:05)
[2019-09-16] MEDS: oxyCODONE /ACETAMINOPHEN 5-325MG TAB PO PRN (15:18)
[2019-09-16] MEDS: ENOXAPARIN 40 MG/0.4 ML INJ SUB-Q SCH (21:04)
[2019-09-17] MEDS: FUROSEMIDE 40 MG/4 ML INJ IV SCH ×3 (05:09→20:02)
[2019-09-17] MEDS: ARFORMOTEROL 15 MCG/2 ML NEBU IH SCH ×2 (07:49→21:05)
[2019-09-17] MEDS: IPRATROPIUM/ALBUTEROL SULFATE 3 ML AMPUL.NEB IH SCH ×3 (07:49→21:05)
[2019-09-17] MEDS: BUDESONIDE 0.5 MG/2 ML NEBU IH SCH ×2 (07:54→21:05)
[2019-09-17 08:42] LABS: BUN/Creatinine Ratio 34; Blood Urea Nitrogen 17 mg/dL (7-17); Calcium 9.4 mg/dL (8.4-10.2); Hemolysis Index 25
[2019-09-17] MEDS: FAMOTIDINE 20 MG TAB PO SCH ×2 (09:34→21:58)
--- NOTE | 2019-09-17 11:33 | Progress Note ---
Assessment and Plan 39 y/o morbidly obese female with acute on chronic respiratory failure ELLY and OHS 1. Must wear PPV anytime she is sleeping 2. Will stop steroids 3. Continue lasix therapy 4. Diamox one time dose of 250 today. 5. Nutrition education 6. CM consult for trilogy machine Subjective Date of service: 09/17/19 Interval history: No acute events. Remains on HFNC. Bicarb is 52 this am. Objective Vital Signs - 12hr 09/16/19 09/16/19 09/17/19 23:40 23:50 00:00 Temperature 97.8 F Pulse Rate 88 89 83 Pulse Rate [ Anterior Bilateral Throughout] Pulse Rate [ 85 From Monitor] Respiratory 31 H 29 H 24 Rate Respiratory Rate [Anterior Bilateral Throughout] Blood Pressure 133/79 133/79 124/78 O2 Sat by Pulse 93 94 94 Oximetry 09/17/19 09/17/19 09/17/19 00:10 00:20 00:30 Temperature Pulse Rate 81 81 78 Pulse Rate [ Anterior Bilateral Throughout] Pulse Rate [ From Monitor] Respiratory 29 H 25 H 23 Rate Respiratory Rate [Anterior Bilateral Throughout] Blood Pressure 124/78 124/78 124/78 O2 Sat by Pulse 92 92 93 Oximetry 09/17/19 09/17/19 09/17/19 00:40 00:50 01:00 Temperature Pulse Rate 80 71 80 Pulse Rate [ Anterior Bilateral Throughout] Pulse Rate [ From Monitor] Respiratory 28 H 19 31 H Rate Respiratory Rate [Anterior Bilateral Throughout] Blood Pressure 124/78 124/78 124/82 O2 Sat by Pulse 93 93 94 Oximetry 09/17/19 09/17/19 09/17/19 01:10 01:15 01:20 Temperature Pulse Rate 80 83 82 Pulse Rate [ Anterior Bilateral Throughout] Pulse Rate [ From Monitor] Respiratory 22 34 H 15 Rate Respiratory Rate [Anterior Bilateral Throughout] Blood Pressure 124/82 124/82 124/82 O2 Sat by Pulse 92 90 90 Oximetry 09/17/19 09/17/19 09/17/19 01:30 01:40 01:50 Temperature Pulse Rate 86 79 83 Pulse Rate [ Anterior Bilateral Throughout] Pulse Rate [ From Monitor] Respiratory 24 22 28 H Rate Respiratory Rate [Anterior Bilateral Throughout] Blood Pressure 124/82 124/82 124/82 O2 Sat by Pulse 91 91 90 Oximetry 09/17/19 09/17/19 09/17/19 02:00 02:10 02:20 Temperature Pulse Rate 85 87 83 Pulse Rate [ Anterior Bilateral Throughout] Pulse Rate [ From Monitor] Respiratory 29 H 28 H 28 H Rate Respiratory Rate [Anterior Bilateral Throughout] Blood Pressure 125/83 125/83 125/83 O2 Sat by Pulse 89 90 91 Oximetry 09/17/19 09/17/19 09/17/19 02:30 02:40 02:50 Temperature Pulse Rate 85 84 89 Pulse Rate [ Anterior Bilateral Throughout] Pulse Rate [ From Monitor] Respiratory 14 20 15 Rate Respiratory Rate [Anterior Bilateral Throughout] Blood Pressure 125/83 125/83 125/83 O2 Sat by Pulse 90 91 93 Oximetry 09/17/19 09/17/19 09/17/19 03:00 03:10 03:20 Temperature Pulse Rate 88 89 85 Pulse Rate [ Anterior Bilateral Throughout] Pulse Rate [ From Monitor] Respiratory 26 H 22 29 H Rate Respiratory Rate [Anterior Bilateral Throughout] Blood Pressure 129/80 129/80 129/80 O2 Sat by Pulse 89 89 89 Oximetry 09/17/19 09/17/19 09/17/19 03:30 03:40 03:50 Temperature Pulse Rate 85 82 85 Pulse Rate [ Anterior Bilateral Throughout] Pulse Rate [ From Monitor] Respiratory 33 H 22 32 H Rate Respiratory Rate [Anterior Bilateral Throughout] Blood Pressure 129/80 129/80 129/80 O2 Sat by Pulse 90 91 91 Oximetry 09/17/19 09/17/19 09/17/19 04:00 04:10 04:20 Temperature 98.0 F Pulse Rate 86 83 81 Pulse Rate [ Anterior Bilateral Throughout] Pulse Rate [ From Monitor] Respiratory 21 32 H 26 H Rate Respiratory Rate [Anterior Bilateral Throughout] Blood Pressure 139/78 139/78 139/78 O2 Sat by Pulse 96 93 93 Oximetry 09/17/19 09/17/19 09/17/19 04:30 04:40 04:50 Temperature Pulse Rate 86 83 83 Pulse Rate [ Anterior Bilateral Throughout] Pulse Rate [ From Monitor] Respiratory 12 17 24 Rate Respiratory Rate [Anterior Bilateral Throughout] Blood Pressure 139/78 139/78 139/78 O2 Sat by Pulse 91 91 93 Oximetry 09/17/19 09/17/19 09/17/19 05:00 05:10 05:20 Temperature Pulse Rate 86 87 92 H Pulse Rate [ Anterior Bilateral Throughout] Pulse Rate [ From Monitor] Respiratory 32 H 36 H 17 Rate Respiratory Rate [Anterior Bilateral Throughout] Blood Pressure 148/70 148/70 148/70 O2 Sat by Pulse 91 94 94 Oximetry 09/17/19 09/17/19 09/17/19 05:30 05:40 05:50 Temperature Pulse Rate 84 86 87 Pulse Rate [ Anterior Bilateral Throughout] Pulse Rate [ From Monitor] Respiratory 16 39 H 24 Rate Respiratory Rate [Anterior Bilateral Throughout] Blood Pressure 148/70 148/70 148/70 O2 Sat by Pulse 94 93 94 Oximetry 09/17/19 09/17/19 09/17/19 06:00 06:04 06:10 Temperature Pulse Rate 88 86 98 H Pulse Rate [ Anterior Bilateral Throughout] Pulse Rate [ From Monitor] Respiratory 34 H 34 H 16 Rate Respiratory Rate [Anterior Bilateral Throughout] Blood Pressure 145/91 145/91 145/91 O2 Sat by Pulse 91 92 72 L Oximetry 09/17/19 09/17/19 09/17/19 06:13 06:20 07:00 Temperature Pulse Rate 93 H 95 H Pulse Rate [ Anterior Bilateral Throughout] Pulse Rate [ From Monitor] Respiratory 13 25 H Rate Respiratory Rate [Anterior Bilateral Throughout] Blood Pressure 145/91 127/77 O2 Sat by Pulse 92 97 93 Oximetry 09/17/19 09/17/19 09/17/19 07:54 07:57 08:00 Temperature Pulse Rate 90 Pulse Rate [ 96 H Anterior Bilateral Throughout] Pulse Rate [ 90 From Monitor] Respiratory 20 Rate Respiratory 20 Rate [Anterior Bilateral Throughout] Blood Pressure 127/77 O2 Sat by Pulse 97 93 Oximetry 09/17/19 08:12 Temperature 97.5 F L Pulse Rate Pulse Rate [ Anterior Bilateral Throughout] Pulse Rate [ From Monitor] Respiratory Rate Respiratory Rate [Anterior Bilateral Throughout] Blood Pressure O2 Sat by Pulse Oximetry Constitutional: no acute distress, other (morbidly obese) Eyes: non-icteric Neck: other (extremely large in circumference) Effort: normal Ascultation: Bilateral: diminished breath sounds (secondary to body habitus) Percussion: Bilateral: not dull Tactile fremitus: Bilateral: diminished Cardiovascular: regular rate and rhythm Gastrointestinal: other (morbidly obese) Neurologic: normal mental status, non-focal exam CBC and BMP: 09/16/19 05:42 09/17/19 06:52 ABG, PT/INR, D-dimer: ABG POC ABG pH 7.212 (7.35-7.45) L 09/14/19 13:58 POC ABG pO2 55 (80-105) L 09/14/19 13:58 PT/INR, D-dimer PT 13.3 Sec. (12.2-14.9) 09/14/19 12:43 INR 1.02 (0.87-1.13) 09/14/19 12:43 Abnormal lab findings: Abnormal Labs 09/14/19 09/14/19 09/14/19 12:43 12:43 13:44 WBC 11.4 H Hgb MCH 24 L MCHC 29 L RDW 18.2 H Lymph % (Auto) Lymph # Seg Neutrophils % Seg Neuts % (Manual) 84.0 H Lymphocytes % (Manual) 11.0 L Nucleated RBC % 3.0 H Seg Neutrophils # Seg Neutrophils # Man 9.6 H Lymphocytes # (Manual) POC ABG pH 7.207 L POC ABG pO2 59 L Sodium Potassium Chloride 88.5 L Carbon Dioxide 44 H* Creatinine 0.4 L Glucose POC Glucose Total Protein 9.0 H Albumin 3.4 L 09/14/19 09/15/19 09/15/19 13:58 07:35 07:35 WBC 12.0 H Hgb 9.7 L MCH 24 L MCHC 29 L RDW 18.0 H Lymph % (Auto) Lymph # Seg Neutrophils % Seg Neuts % (Manual) 91.0 H Lymphocytes % (Manual) 5.0 L Nucleated RBC % 2.0 H Seg Neutrophils # Seg Neutrophils # Man 10.9 H Lymphocytes # (Manual) 0.6 L POC ABG pH 7.212 L POC ABG pO2 55 L Sodium 146 H Potassium 5.2 H Chloride 88.7 L Carbon Dioxide 49 H* Creatinine 0.4 L Glucose 101 H POC Glucose Total Protein Albumin 3.3 L 09/16/19 09/16/19 09/16/19 05:42 05:42 12:55 WBC Hgb MCH 25 L MCHC RDW 18.0 H Lymph % (Auto) 6.2 L Lymph # 0.6 L Seg Neutrophils % 89.0 H Seg Neuts % (Manual) Lymphocytes % (Manual) Nucleated RBC % Seg Neutrophils # 9.2 H Seg Neutrophils # Man Lymphocytes # (Manual) POC ABG pH POC ABG pO2 Sodium Potassium 5.6 H Chloride 86.8 L Carbon Dioxide 50 H* Creatinine 0.4 L Glucose 117 H POC Glucose 146 H Total Protein 8.4 H Albumin 3.1 L 09/16/19 09/17/19 18:07 06:52 WBC Hgb MCH MCHC RDW Lymph % (Auto) Lymph # Seg Neutrophils % Seg Neuts % (Manual) Lymphocytes % (Manual) Nucleated RBC % Seg Neutrophils # Seg Neutrophils # Man Lymphocytes # (Manual) POC ABG pH POC ABG pO2 Sodium Potassium Chloride 82.4 L Carbon Dioxide 52 H* Creatinine 0.5 L Glucose POC Glucose 135 H Total Protein Albumin
--- NOTE | 2019-09-17 16:28 | Progress Note ---
Assessment and Plan Assessment and plan: 39-year-old morbidly obese female patient was admitted through emergency room with worsening shortness of breath cough productive and wheezing Patient was admitted symptomatically managed on oxygen BiPAP nebulizers IV antibiotics, IV steroids discontinued and supportive care Patient was evaluated by pulmonary, medications optimized, Advised PPV. Every time she sleeps and at nights, and received 1 dose of Diamox today. Pulmonary advised evaluation for home oxygen, evaluation for CPAP, BiPAP, Trilogy at discharge per case management., --Acute respiratory failure with hypoxia and hypercarbia Current Visit: Yes Status: Acute Patient on Bipap , oxygen titrate O2 sats to more than 90% Sec to obesity hypoventilation and obstructive sleep apnea Nebulizers, stop IV steroids IV antibiotics 5 days BiPAP as needed, PPV every time she sleeps Diamox one dose today recommended by pulmonary Trilogy machine at discharge --Obesity hypoventilation syndrome; Current Visit: Yes Status: Acute Oxygen nebulizers supportive care, --Hyperkalemia:Resolved --Obstructive sleep apnea: Current Visit: Yes Status: Acute CPAP BiPAP at night, and daytime as needed. Needs outpatient sleep study on discharg -- Morbid obesity BMI 73.2. Current Visit: Yes Status: Chronic. Advised weight reduction when medically stable Recommend outpatient bariatric surgical evaluation for weight reduction program when medically stable --DVT prophylaxis. Current Visit: Yes Status: Acute Lovenox GI prophylaxis; Pepcid. --Full code Status Monitor clinically and adjust the management as needed Discharge planning. Evaluation for home oxygen Trilogy at discharge, evaluation for CPAP BiPAP inpt vs outpatient Critical care time 31 minutes Disposition; discharged home when medically stable History Interval history: Patient seen and examined medical records reviewed Patient complains of shortness of breath and weakness Wants to go home, alert awake oriented 3 Vital signs reviewed Hospitalist Physical - Constitutional Vitals: Temp Pulse Resp BP Pulse Ox 98.3 F 92 H 20 126/55 93 09/17/19 12:00 09/17/19 14:07 09/17/19 14:07 09/17/19 14:01 09/17/19 14:07 General appearance: Present: mild distress, well-nourished, obese (morbidly obese) - EENT Eyes: Present: PERRL, EOM intact - Neck Neck: Present: supple, normal ROM - Respiratory Respiratory effort: labored Respiratory: bilateral: diminished, rhonchi, negative: rales, wheezing - Cardiovascular Rhythm: regular Heart Sounds: Present: S1 & S2 - Extremities Extremities: no ischemia, No edema - Abdominal General gastrointestinal: soft, non-tender, non-distended, normal bowel sounds - Integumentary Integumentary: Present: clear, warm - Psychiatric Psychiatric: appropriate mood/affect, cooperative - Neurologic Neurologic: CNII-XII intact, moves all extremities Results - Labs CBC & Chem 7: 09/16/19 05:42 09/17/19 06:52 Labs: Laboratory Last Values WBC 10.3 K/mm3 (4.5-11.0) 09/16/19 05:42 RBC 4.42 M/mm3 (3.65-5.03) 09/16/19 05:42 Hgb 10.9 gm/dl (10.1-14.3) 09/16/19 05:42 Hct 36.5 % (30.3-42.9) 09/16/19 05:42 MCV 83 fl (79-97) 09/16/19 05:42 MCH 25 pg (28-32) L 09/16/19 05:42 MCHC 30 % (30-34) 09/16/19 05:42 RDW 18.0 % (13.2-15.2) H 09/16/19 05:42 Plt Count 179 K/mm3 (140-440) 09/16/19 05:42 Lymph % (Auto) 6.2 % (13.4-35.0) L 09/16/19 05:42 Rooks % (Auto) 4.5 % (0.0-7.3) 09/16/19 05:42 Eos % (Auto) 0.0 % (0.0-4.3) 09/16/19 05:42 Baso % (Auto) 0.3 % (0.0-1.8) 09/16/19 05:42 Lymph # 0.6 K/mm3 (1.2-5.4) L 09/16/19 05:42 Rooks # 0.5 K/mm3 (0.0-0.8) 09/16/19 05:42 Eos # 0.0 K/mm3 (0.0-0.4) 09/16/19 05:42 Baso # 0.0 K/mm3 (0.0-0.1) 09/16/19 05:42 Add Manual Diff Complete 09/15/19 07:35 Total Counted 100 09/15/19 07:35 Seg Neutrophils % 89.0 % (40.0-70.0) H 09/16/19 05:42 Seg Neuts % (Manual) 91.0 % (40.0-70.0) H 09/15/19 07:35 Band Neutrophils % 0 % 09/15/19 07:35 Lymphocytes % (Manual) 5.0 % (13.4-35.0) L 09/15/19 07:35 Reactive Lymphs % (Man) 0 % 09/15/19 07:35 Monocytes % (Manual) 2.0 % (0.0-7.3) 09/15/19 07:35 Eosinophils % (Manual) 0 % (0.0-4.3) 09/15/19 07:35 Basophils % (Manual) 0 % (0.0-1.8) 09/15/19 07:35 Metamyelocytes % 2.0 % 09/15/19 07:35 Myelocytes % 0 % 09/15/19 07:35 Promyelocytes % 0 % 09/15/19 07:35 Blast Cells % 0 % 09/15/19 07:35 Nucleated RBC % 2.0 % (0.0-0.9) H 09/15/19 07:35 Seg Neutrophils # 9.2 K/mm3 (1.8-7.7) H 09/16/19 05:42 Seg Neutrophils # Man 10.9 K/mm3 (1.8-7.7) H 09/15/19 07:35 Band Neutrophils # 0.0 K/mm3 09/15/19 07:35 Lymphocytes # (Manual) 0.6 K/mm3 (1.2-5.4) L 09/15/19 07:35 Abs React Lymphs (Man) 0.0 K/mm3 09/15/19 07:35 Monocytes # (Manual) 0.2 K/mm3 (0.0-0.8) 09/15/19 07:35 Eosinophils # (Manual) 0.0 K/mm3 (0.0-0.4) 09/15/19 07:35 Basophils # (Manual) 0.0 K/mm3 (0.0-0.1) 09/15/19 07:35 Metamyelocytes # 0.2 K/mm3 09/15/19 07:35 Myelocytes # 0.0 K/mm3 09/15/19 07:35 Promyelocytes # 0.0 K/mm3 09/15/19 07:35 Blast Cells # 0.0 K/mm3 09/15/19 07:35 WBC Morphology Not Reportable 09/15/19 07:35 Hypersegmented Neuts Not Reportable 09/15/19 07:35 Hyposegmented Neuts Not Reportable 09/15/19 07:35 Hypogranular Neuts Not Reportable 09/15/19 07:35 Smudge Cells Not Reportable 09/15/19 07:35 Toxic Granulation Not Reportable 09/15/19 07:35 Toxic Vacuolation Not Reportable 09/15/19 07:35 Dohle Bodies Not Reportable 09/15/19 07:35 Pelger-Huet Anomaly Not Reportable 09/15/19 07:35 Antione Rods Not Reportable 09/15/19 07:35 Platelet Estimate Consistent w auto 09/15/19 07:35 Clumped Platelets Not Reportable 09/15/19 07:35 Plt Clumps, EDTA Not Reportable 09/15/19 07:35 Large Platelets Rare 09/15/19 07:35 Giant Platelets Not Reportable 09/15/19 07:35 Platelet Satelliting Not Reportable 09/15/19 07:35 Plt Morphology Comment Not Reportable 09/15/19 07:35 RBC Morphology Not Reportable 09/15/19 07:35 Dimorphic RBCs Not Reportable 09/15/19 07:35 Polychromasia Not Reportable 09/15/19 07:35 Hypochromasia 1+ 09/15/19 07:35 Poikilocytosis Not Reportable 09/15/19 07:35 Anisocytosis Few 09/15/19 07:35 Microcytosis Not Reportable 09/15/19 07:35 Macrocytosis Not Reportable 09/15/19 07:35 Spherocytes Not Reportable 09/15/19 07:35 Pappenheimer Bodies Not Reportable 09/15/19 07:35 Sickle Cells Not Reportable 09/15/19 07:35 Target Cells Not Reportable 09/15/19 07:35 Tear Drop Cells Not Reportable 09/15/19 07:35 Ovalocytes Not Reportable 09/15/19 07:35 Helmet Cells Not Reportable 09/15/19 07:35 [place] Bodies Not Reportable 09/15/19 07:35 [place] Rings Not Reportable 09/15/19 07:35 Mike Cells Not Reportable 09/15/19 07:35 Bite Cells Not Reportable 09/15/19 07:35 Crenated Cell Not Reportable 09/15/19 07:35 Elliptocytes Not Reportable 09/15/19 07:35 Acanthocytes (Spur) Not Reportable 09/15/19 07:35 Rouleaux Not Reportable 09/15/19 07:35 Hemoglobin C Crystals Not Reportable 09/15/19 07:35 Schistocytes Not Reportable 09/15/19 07:35 Malaria parasites Not Reportable 09/15/19 07:35 Roldan Bodies Not Reportable 09/15/19 07:35 Hem Pathologist Commnt No 09/15/19 07:35 PT 13.3 Sec. (12.2-14.9) 09/14/19 12:43 INR 1.02 (0.87-1.13) 09/14/19 12:43 APTT 27.5 Sec. (24.2-36.6) 09/14/19 12:43 POC ABG pH 7.212 (7.35-7.45) L 09/14/19 13:58 POC ABG pO2 55 (80-105) L 09/14/19 13:58 FiO2 40 % 09/14/19 13:58 Sodium 143 mmol/L (137-145) 09/17/19 06:52 Potassium 3.8 mmol/L (3.6-5.0) D 09/17/19 06:52 Chloride 82.4 mmol/L (98-107) L 09/17/19 06:52 Carbon Dioxide 52 mmol/L (22-30) H* 09/17/19 06:52 Anion Gap 12 mmol/L 09/17/19 06:52 BUN 17 mg/dL (7-17) 09/17/19 06:52 Creatinine 0.5 mg/dL (0.7-1.2) L 09/17/19 06:52 Estimated GFR > 60 ml/min 09/17/19 06:52 BUN/Creatinine Ratio 34 % 09/17/19 06:52 Glucose 93 mg/dL (65-100) 09/17/19 06:52 POC Glucose 135 (70-105) H 09/16/19 18:07 Hemoglobin A1c 5.5 % (4-6) 09/14/19 12:43 Calcium 9.4 mg/dL (8.4-10.2) 09/17/19 06:52 Magnesium 2.30 mg/dL (1.7-2.3) 09/16/19 05:42 Total Bilirubin 0.30 mg/dL (0.1-1.2) 09/16/19 05:42 AST 21 units/L (5-40) 09/16/19 05:42 ALT 11 units/L (7-56) 09/16/19 05:42 Alkaline Phosphatase 57 units/L (35-129) 09/16/19 05:42 Total Creatine Kinase 47 units/L (30-135) 09/14/19 12:43 Troponin T < 0.010 ng/mL (0.00-0.029) 09/14/19 12:43 NT-Pro-B Natriuret Pep 112.7 pg/mL (0-450) 09/14/19 12:43 Total Protein 8.4 g/dL (6.3-8.2) H 09/16/19 05:42 Albumin 3.1 g/dL (3.9-5) L 09/16/19 05:42 Albumin/Globulin Ratio 0.6 % 09/16/19 05:42 Active Medications - Current Medications Current Medications: Generic Name Dose Route Start Last Admin Trade Name Freq PRN Reason Stop Dose Admin Acetaminophen 650 mg 09/14/19 21:37 Tylenol PO Q4H PRN Pain MILD(1-3)/Fever >100.5/DOMINIQUE Acetazolamide 250 mg 09/17/19 12:00 09/17/19 13:24 Diamox IV 09/17/19 18:00 250 mg ONCE NR Administration Albuterol 2.5 mg 09/15/19 16:08 Proventil IH Q4H PRN Shortness Of Breath/ Wheezing Albuterol/Ipratropium 1 ampul 09/15/19 20:00 09/17/19 14:04 Duoneb *Not For Prn Use* IH 1 ampul TIDRT DEMOND Administration Arformoterol Tartrate 15 mcg 09/15/19 20:00 09/17/19 07:49 Brovana Nebu IH 15 mcg Q12HRT DEMOND Administration Budesonide 0.5 mg 09/15/19 20:00 09/17/19 07:54 Pulmicort IH 0.5 mg Q12HRT DEMOND Administration Enoxaparin Sodium 40 mg 09/15/19 22:00 09/16/19 21:04 Enoxaparin SUB-Q 40 mg QDAY@2200 DEMOND Administration Famotidine 20 mg 09/17/19 10:00 09/17/19 09:34 Pepcid PO 20 mg BID DEMOND Administration Furosemide 40 mg 09/15/19 18:00 09/17/19 05:09 Lasix IV 40 mg 0600,1800 [facility] Administration Hydromorphone HCl 0.5 mg 09/14/19 21:37 09/16/19 22:02 Dilaudid IV 0.5 mg Q3H PRN Administration Pain , Severe (7-10) Levofloxacin/Dextrose 750 mg in 150 mls @ 100 mls/hr 09/14/19 22:00 09/16/19 21:04 Levaquin 750mg/150ml IV 09/18/19 23:29 100 mls/hr Q24HR@2200 [facility] Administration Protocol Metoclopramide HCl 10 mg 09/14/19 21:37 Reglan IV Q6H PRN Nausea And Vomiting Ondansetron HCl 4 mg 09/14/19 21:37 Zofran IV Q8H PRN Nausea And Vomiting Oxycodone/Acetaminophen 1 tab 09/14/19 21:37 09/16/19 15:18 Percocet 5/325 PO 1 tab Q6H PRN Administration Pain, Moderate (4-6) Sodium Chloride 10 ml 09/14/19 22:00 09/17/19 09:34 Sodium Chloride Flush Syringe 10 Ml IV 10 ml BID DEMOND Administration Sodium Chloride 10 ml 09/14/19 21:37 Sodium Chloride Flush Syringe 10 Ml IV PRN PRN LINE FLUSH
[2019-09-17] MEDS: oxyCODONE /ACETAMINOPHEN 5-325MG TAB PO PRN (18:58)
[2019-09-17] MEDS: ENOXAPARIN 40 MG/0.4 ML INJ SUB-Q SCH (21:58)
[2019-09-18] MEDS: FUROSEMIDE 40 MG/4 ML INJ IV SCH ×2 (05:22→18:55)
[2019-09-18 07:13] LABS: BUN/Creatinine Ratio 35; Blood Urea Nitrogen 14 mg/dL (7-17); Calcium 9.4 mg/dL (8.4-10.2); Hemolysis Index 186
[2019-09-18] MEDS: IPRATROPIUM/ALBUTEROL SULFATE 3 ML AMPUL.NEB IH SCH ×3 (08:59→21:15)
[2019-09-18] MEDS: ARFORMOTEROL 15 MCG/2 ML NEBU IH SCH ×2 (08:59→21:15)
[2019-09-18] MEDS: BUDESONIDE 0.5 MG/2 ML NEBU IH SCH ×2 (08:59→21:16)
[2019-09-18] MEDS: SODIUM POLYSTYRENE 15 GM/60 ML ORAL LIQD PO ONE ×2 (09:58→10:05)
[2019-09-18] MEDS: FAMOTIDINE 20 MG TAB PO SCH ×2 (09:59→22:05)
--- NOTE | 2019-09-18 10:36 | Progress Note ---
Assessment and Plan /Acute respiratory failure with hypoxia and hypercarbia Patient on Bipap , oxygen titrate O2 sats to more than 90% Sec to obesity hypoventilation and obstructive sleep apnea Nebulizers, stop IV steroids IV antibiotics 5 days BiPAP as needed, PPV every time she sleeps , on Diamox by pulmonary will need Trilogy machine at discharge if o2 requirement decreases - CM working on LTAC placement /Obesity hypoventilation syndrome; Supplemental Oxygen, nebulizers, supportive care, wt reduction diet /Hyperkalemia:Resolved /Obstructive sleep apnea: CPAP/BiPAP at night, and daytime as needed. Needs outpatient sleep study on discharge / Morbid obesity BMI 73.2. Advised weight reduction when medically stable with diet and exercise as appropriate Recommend outpatient bariatric surgical evaluation /DVT prophylaxis. Lovenox GI prophylaxis; Pepcid. --Full code Status Monitor clinically and adjust the management as needed Discharge planning. Trilogy at discharge, evaluation for CPAP BiPAP inpt vs outpatient Critical care time 31 minutes Disposition; LTAC Brief History 39-year-old morbidly obese female patient was admitted through emergency room with worsening shortness of breath cough productive and wheezing Patient was admitted, symptomatically managed on oxygen BiPAP nebulizers, IV an tibiotics, IV steroids and supportive care Patient was evaluated by pulmonary, medications optimized, Advised PPV Every time she sleeps and at nights, and s/p Diamox. Still on high O2 - plan for LTAC Hospitalist Physical General appearance: Present: mild distress, well-nourished, obese (morbidly obese) - EENT Eyes: Present: PERRL, EOM intact - Neck Neck: Present: supple, normal ROM - Respiratory Respiratory effort: labored Respiratory: bilateral: diminished, rhonchi, negative: rales, wheezing - Cardiovascular Rhythm: regular Heart Sounds: Present: S1 & S2 - Extremities Extremities: no ischemia, No edema - Abdominal General gastrointestinal: soft, non-tender, non-distended, normal bowel sounds - Integumentary Integumentary: Present: clear, warm - Psychiatric Psychiatric: appropriate mood/affect, cooperative - Neurologic Neurologic: CNII-XII intact, moves all extremities Subjective Date of service: 09/18/19 Interval history: Patient seen and examined. Medical records and medication list reviewed. No acute event overnight noted by the RN. Patient remained on 100% FiO2, using BiPAP at night Discussed plan of care at bedside with patient, critical care attending and so cial worker/CM. Objective - Constitutional Vitals: Vital Signs - 12hr 09/17/19 09/17/19 09/17/19 23:01 23:15 23:35 Temperature 97.7 F Pulse Rate 101 H 99 H Pulse Rate [ Anterior Bilateral Throughout] Pulse Rate [ From Monitor] Respiratory 24 29 H Rate Respiratory Rate [Anterior Bilateral Throughout] Blood Pressure 128/101 128/101 O2 Sat by Pulse 94 96 Oximetry 09/18/19 09/18/19 09/18/19 00:00 00:01 01:01 Temperature Pulse Rate 92 H 94 H 95 H Pulse Rate [ Anterior Bilateral Throughout] Pulse Rate [ 92 H From Monitor] Respiratory 22 34 H 32 H Rate Respiratory Rate [Anterior Bilateral Throughout] Blood Pressure 124/70 100/55 O2 Sat by Pulse 95 89 75 L Oximetry 09/18/19 09/18/19 09/18/19 01:15 02:01 03:01 Temperature Pulse Rate 92 H 92 H 84 Pulse Rate [ Anterior Bilateral Throughout] Pulse Rate [ From Monitor] Respiratory 31 H 28 H 32 H Rate Respiratory Rate [Anterior Bilateral Throughout] Blood Pressure 100/55 158/86 129/72 O2 Sat by Pulse 93 95 93 Oximetry 09/18/19 09/18/19 09/18/19 03:41 04:00 04:01 Temperature 98.9 F Pulse Rate 88 91 H Pulse Rate [ Anterior Bilateral Throughout] Pulse Rate [ 92 H From Monitor] Respiratory 29 H 39 H Rate Respiratory Rate [Anterior Bilateral Throughout] Blood Pressure 121/73 O2 Sat by Pulse 95 100 Oximetry 09/18/19 09/18/19 09/18/19 05:01 06:00 07:00 Temperature Pulse Rate 88 91 H 92 H Pulse Rate [ Anterior Bilateral Throughout] Pulse Rate [ From Monitor] Respiratory 31 H 18 33 H Rate Respiratory Rate [Anterior Bilateral Throughout] Blood Pressure 131/78 131/78 119/79 O2 Sat by Pulse 93 94 92 Oximetry 09/18/19 09/18/19 08:00 09:00 Temperature 98.3 F Pulse Rate 109 H Pulse Rate [ 98 H Anterior Bilateral Throughout] Pulse Rate [ 109 H From Monitor] Respiratory 22 Rate Respiratory 26 H Rate [Anterior Bilateral Throughout] Blood Pressure 118/82 O2 Sat by Pulse 95 Oximetry - Labs CBC & Chem 7: 09/16/19 05:42 09/18/19 05:45 Labs: Abnormal lab results 09/18/19 Range/Units 05:45 Potassium 5.1 H D (3.6-5.0) mmol/L Chloride 85.9 L (98-107) mmol/L Carbon Dioxide 44 H* D (22-30) mmol/L Creatinine 0.4 L (0.7-1.2) mg/dL
--- NOTE | 2019-09-18 11:28 | Progress Note ---
Assessment and Plan 39 y/o morbidly obese female with acute on chronic respiratory failure ELLY and OHS 1. Must wear PPV anytime she is sleeping 2. Will stop steroids 3. Continue lasix therapy 4. DIamox did improve CO2. Will give again today. 5. Nutrition education 6. Patient would likely benefit from LTACH as she has had long standing hypoxemia and will be difficult wean from HFNC given her morbid, morbid obesity. Subjective Date of service: 09/18/19 Interval history: no acute events. Still on HFNC at 35 and 100%. No family at bedside. Objective Vital Signs - 12hr 09/17/19 09/18/19 09/18/19 23:35 00:00 00:01 Temperature 97.7 F Pulse Rate 92 H 94 H Pulse Rate [ Anterior Bilateral Throughout] Pulse Rate [ 92 H From Monitor] Respiratory 22 34 H Rate Respiratory Rate [Anterior Bilateral Throughout] Blood Pressure 124/70 O2 Sat by Pulse 95 89 Oximetry 09/18/19 09/18/19 09/18/19 01:01 01:15 02:01 Temperature Pulse Rate 95 H 92 H 92 H Pulse Rate [ Anterior Bilateral Throughout] Pulse Rate [ From Monitor] Respiratory 32 H 31 H 28 H Rate Respiratory Rate [Anterior Bilateral Throughout] Blood Pressure 100/55 100/55 158/86 O2 Sat by Pulse 75 L 93 95 Oximetry 09/18/19 09/18/19 09/18/19 03:01 03:41 04:00 Temperature 98.9 F Pulse Rate 84 88 Pulse Rate [ Anterior Bilateral Throughout] Pulse Rate [ 92 H From Monitor] Respiratory 32 H 29 H Rate Respiratory Rate [Anterior Bilateral Throughout] Blood Pressure 129/72 O2 Sat by Pulse 93 95 Oximetry 09/18/19 09/18/19 09/18/19 04:01 05:01 06:00 Temperature Pulse Rate 91 H 88 91 H Pulse Rate [ Anterior Bilateral Throughout] Pulse Rate [ From Monitor] Respiratory 39 H 31 H 18 Rate Respiratory Rate [Anterior Bilateral Throughout] Blood Pressure 121/73 131/78 131/78 O2 Sat by Pulse 100 93 94 Oximetry 09/18/19 09/18/19 09/18/19 07:00 08:00 09:00 Temperature 98.3 F Pulse Rate 92 H 109 H 97 H Pulse Rate [ 98 H Anterior Bilateral Throughout] Pulse Rate [ 109 H From Monitor] Respiratory 33 H 22 15 Rate Respiratory 26 H Rate [Anterior Bilateral Throughout] Blood Pressure 119/79 118/82 109/59 O2 Sat by Pulse 92 95 93 Oximetry 09/18/19 09/18/19 10:00 11:00 Temperature Pulse Rate 96 H 94 H Pulse Rate [ Anterior Bilateral Throughout] Pulse Rate [ From Monitor] Respiratory 26 H 26 H Rate Respiratory Rate [Anterior Bilateral Throughout] Blood Pressure 102/53 102/53 O2 Sat by Pulse 94 95 Oximetry Constitutional: no acute distress, other (morbidly obese) Eyes: non-icteric Neck: other (extremely large in circumference) Effort: normal Ascultation: Bilateral: diminished breath sounds (secondary to body habitus) Percussion: Bilateral: not dull Tactile fremitus: Bilateral: diminished Cardiovascular: regular rate and rhythm Gastrointestinal: other (morbidly obese) Neurologic: normal mental status, non-focal exam CBC and BMP: 09/16/19 05:42 09/18/19 05:45 ABG, PT/INR, D-dimer: ABG POC ABG pH 7.212 (7.35-7.45) L 09/14/19 13:58 POC ABG pO2 55 (80-105) L 09/14/19 13:58 PT/INR, D-dimer PT 13.3 Sec. (12.2-14.9) 09/14/19 12:43 INR 1.02 (0.87-1.13) 09/14/19 12:43 Abnormal lab findings: Abnormal Labs 09/14/19 09/14/19 09/14/19 12:43 12:43 13:44 WBC 11.4 H Hgb MCH 24 L MCHC 29 L RDW 18.2 H Lymph % (Auto) Lymph # Seg Neutrophils % Seg Neuts % (Manual) 84.0 H Lymphocytes % (Manual) 11.0 L Nucleated RBC % 3.0 H Seg Neutrophils # Seg Neutrophils # Man 9.6 H Lymphocytes # (Manual) POC ABG pH 7.207 L POC ABG pO2 59 L Sodium Potassium Chloride 88.5 L Carbon Dioxide 44 H* Creatinine 0.4 L Glucose POC Glucose Total Protein 9.0 H Albumin 3.4 L 09/14/19 09/15/19 09/15/19 13:58 07:35 07:35 WBC 12.0 H Hgb 9.7 L MCH 24 L MCHC 29 L RDW 18.0 H Lymph % (Auto) Lymph # Seg Neutrophils % Seg Neuts % (Manual) 91.0 H Lymphocytes % (Manual) 5.0 L Nucleated RBC % 2.0 H Seg Neutrophils # Seg Neutrophils # Man 10.9 H Lymphocytes # (Manual) 0.6 L POC ABG pH 7.212 L POC ABG pO2 55 L Sodium 146 H Potassium 5.2 H Chloride 88.7 L Carbon Dioxide 49 H* Creatinine 0.4 L Glucose 101 H POC Glucose Total Protein Albumin 3.3 L 09/16/19 09/16/19 09/16/19 05:42 05:42 12:55 WBC Hgb MCH 25 L MCHC RDW 18.0 H Lymph % (Auto) 6.2 L Lymph # 0.6 L Seg Neutrophils % 89.0 H Seg Neuts % (Manual) Lymphocytes % (Manual) Nucleated RBC % Seg Neutrophils # 9.2 H Seg Neutrophils # Man Lymphocytes # (Manual) POC ABG pH POC ABG pO2 Sodium Potassium 5.6 H Chloride 86.8 L Carbon Dioxide 50 H* Creatinine 0.4 L Glucose 117 H POC Glucose 146 H Total Protein 8.4 H Albumin 3.1 L 09/16/19 09/17/19 09/18/19 18:07 06:52 05:45 WBC Hgb MCH MCHC RDW Lymph % (Auto) Lymph # Seg Neutrophils % Seg Neuts % (Manual) Lymphocytes % (Manual) Nucleated RBC % Seg Neutrophils # Seg Neutrophils # Man Lymphocytes # (Manual) POC ABG pH POC ABG pO2 Sodium Potassium 5.1 H D Chloride 82.4 L 85.9 L Carbon Dioxide 52 H* 44 H* D Creatinine 0.5 L 0.4 L Glucose POC Glucose 135 H Total Protein Albumin
[2019-09-18] MEDS: ENOXAPARIN 40 MG/0.4 ML INJ SUB-Q SCH (22:05)
[2019-09-19] MEDS: FUROSEMIDE 40 MG/4 ML INJ IV SCH ×2 (05:24→18:00)
[2019-09-19] MEDS: FAMOTIDINE 20 MG TAB PO SCH ×2 (10:01→21:29)
[2019-09-19] MEDS: IPRATROPIUM/ALBUTEROL SULFATE 3 ML AMPUL.NEB IH SCH ×3 (10:21→21:24)
[2019-09-19] MEDS: ARFORMOTEROL 15 MCG/2 ML NEBU IH SCH ×2 (10:21→21:24)
[2019-09-19] MEDS: BUDESONIDE 0.5 MG/2 ML NEBU IH SCH ×2 (10:21→21:24)
--- NOTE | 2019-09-19 10:53 | Progress Note ---
Assessment and Plan 39 y/o morbidly obese female with acute on chronic respiratory failure ELLY and OHS 1. Must wear PPV anytime she is sleeping, discussed again with patient. 2. Continue lasix therapy 3. Suggest checking a chemistry. 4. Nutrition education 5. Patient would likely benefit from LTACH as she has had long standing hypoxemia and will be difficult wean from HFNC given her morbid, morbid obesity. Subjective Date of service: 09/19/19 Interval history: No acute events. Down to 80% but flow is at 40. Sat 97%. No family present. CM working on placement. has not been wearing PPV enough. Refuses to go on before midnight. Objective Vital Signs - 12hr 09/18/19 09/19/19 09/19/19 23:00 00:00 00:03 Temperature 98.7 F 98.7 F Pulse Rate 103 H 96 H Pulse Rate [ 96 H From Monitor] Respiratory 39 H 42 H Rate Blood Pressure 116/69 125/75 O2 Sat by Pulse 93 92 Oximetry 09/19/19 09/19/19 09/19/19 01:00 02:00 03:00 Temperature Pulse Rate 98 H 100 H 101 H Pulse Rate [ From Monitor] Respiratory 29 H 24 28 H Rate Blood Pressure 120/69 108/55 108/55 O2 Sat by Pulse 95 96 95 Oximetry 09/19/19 09/19/19 09/19/19 03:02 04:00 05:00 Temperature 98.6 F Pulse Rate 98 H 94 H 92 H Pulse Rate [ 93 H From Monitor] Respiratory 32 H 38 H 32 H Rate Blood Pressure 125/75 119/70 137/81 O2 Sat by Pulse 98 96 92 Oximetry 09/19/19 06:00 Temperature Pulse Rate 92 H Pulse Rate [ From Monitor] Respiratory 34 H Rate Blood Pressure 131/82 O2 Sat by Pulse 90 Oximetry Constitutional: no acute distress, other (morbidly obese) Eyes: non-icteric Neck: other (extremely large in circumference) Effort: normal Ascultation: Bilateral: diminished breath sounds (secondary to body habitus) Percussion: Bilateral: not dull Tactile fremitus: Bilateral: diminished Cardiovascular: regular rate and rhythm Gastrointestinal: other (morbidly obese) Neurologic: normal mental status, non-focal exam CBC and BMP: 09/16/19 05:42 09/18/19 05:45 ABG, PT/INR, D-dimer: ABG POC ABG pH 7.212 (7.35-7.45) L 09/14/19 13:58 POC ABG pO2 55 (80-105) L 09/14/19 13:58 PT/INR, D-dimer PT 13.3 Sec. (12.2-14.9) 09/14/19 12:43 INR 1.02 (0.87-1.13) 09/14/19 12:43 Abnormal lab findings: Abnormal Labs 09/14/19 09/14/19 09/14/19 12:43 12:43 13:44 WBC 11.4 H Hgb MCH 24 L MCHC 29 L RDW 18.2 H Lymph % (Auto) Lymph # Seg Neutrophils % Seg Neuts % (Manual) 84.0 H Lymphocytes % (Manual) 11.0 L Nucleated RBC % 3.0 H Seg Neutrophils # Seg Neutrophils # Man 9.6 H Lymphocytes # (Manual) POC ABG pH 7.207 L POC ABG pO2 59 L Sodium Potassium Chloride 88.5 L Carbon Dioxide 44 H* Creatinine 0.4 L Glucose POC Glucose Total Protein 9.0 H Albumin 3.4 L 09/14/19 09/15/19 09/15/19 13:58 07:35 07:35 WBC 12.0 H Hgb 9.7 L MCH 24 L MCHC 29 L RDW 18.0 H Lymph % (Auto) Lymph # Seg Neutrophils % Seg Neuts % (Manual) 91.0 H Lymphocytes % (Manual) 5.0 L Nucleated RBC % 2.0 H Seg Neutrophils # Seg Neutrophils # Man 10.9 H Lymphocytes # (Manual) 0.6 L POC ABG pH 7.212 L POC ABG pO2 55 L Sodium 146 H Potassium 5.2 H Chloride 88.7 L Carbon Dioxide 49 H* Creatinine 0.4 L Glucose 101 H POC Glucose Total Protein Albumin 3.3 L 09/16/19 09/16/19 09/16/19 05:42 05:42 12:55 WBC Hgb MCH 25 L MCHC RDW 18.0 H Lymph % (Auto) 6.2 L Lymph # 0.6 L Seg Neutrophils % 89.0 H Seg Neuts % (Manual) Lymphocytes % (Manual) Nucleated RBC % Seg Neutrophils # 9.2 H Seg Neutrophils # Man Lymphocytes # (Manual) POC ABG pH POC ABG pO2 Sodium Potassium 5.6 H Chloride 86.8 L Carbon Dioxide 50 H* Creatinine 0.4 L Glucose 117 H POC Glucose 146 H Total Protein 8.4 H Albumin 3.1 L 09/16/19 09/17/19 09/18/19 18:07 06:52 05:45 WBC Hgb MCH MCHC RDW Lymph % (Auto) Lymph # Seg Neutrophils % Seg Neuts % (Manual) Lymphocytes % (Manual) Nucleated RBC % Seg Neutrophils # Seg Neutrophils # Man Lymphocytes # (Manual) POC ABG pH POC ABG pO2 Sodium Potassium 5.1 H D Chloride 82.4 L 85.9 L Carbon Dioxide 52 H* 44 H* D Creatinine 0.5 L 0.4 L Glucose POC Glucose 135 H Total Protein Albumin
--- NOTE | 2019-09-19 14:08 | Progress Note ---
Assessment and Plan /Acute respiratory failure with hypoxia and hypercarbia Patient on Bipap , oxygen titrate O2 sats to more than 90% Sec to obesity hypoventilation and obstructive sleep apnea cont Nebulizers, s/p IV steroids IV antibiotics for 5 days BiPAP as needed, PPV every time she sleeps , s/p Diamox by pulmonary will need Trilogy machine at discharge if o2 requirement decreases - CM working on LTAC placement /Obesity hypoventilation syndrome; Supplemental Oxygen, nebulizers, supportive care, wt reduction diet /Hyperkalemia:Resolved /Obstructive sleep apnea: CPAP/BiPAP at night, and daytime as needed. Needs outpatient sleep study on discharge / Morbid obesity BMI 73.2. Advised weight reduction when medically stable with diet and exercise as appropriate Recommend outpatient bariatric surgical evaluation /DVT prophylaxis. Lovenox GI prophylaxis; Pepcid. --Full code Status Monitor clinically and adjust the management as needed Discharge planning. Trilogy at discharge, evaluation for CPAP BiPAP inpt vs outpatient Critical care time 31 minutes Disposition; LTAC - pending authorization Brief History 39-year-old morbidly obese female patient was admitted through emergency room with worsening shortness of breath cough productive and wheezing Patient was admitted, symptomatically managed on oxygen BiPAP nebulizers, IV antibiotics, IV steroids and supportive care Patient was evaluated by pulmonary, medications optimized, Advised PPV Every time she sleeps and at nights, and s/p Diamox. Still on high O2 - plan for LTAC Hospitalist Physical General appearance: Present: mild distress, well-nourished, obese (morbidly obese) - EENT Eyes: Present: PERRL, EOM intact - Neck Neck: Present: supple, normal ROM - Respiratory Respiratory effort: labored Respiratory: bilateral: diminished, rhonchi, negative: rales, wheezing - Cardiovascular Rhythm: regular Heart Sounds: Present: S1 & S2 - Extremities Extremities: no ischemia, No edema - Abdominal General gastrointestinal: soft, non-tender, non-distended, normal bowel sounds - Integumentary Integumentary: Present: clear, warm - Psychiatric Psychiatric: appropriate mood/affect, cooperative - Neurologic Neurologic: CNII-XII intact, moves all extremities Subjective Date of service: 09/19/19 Interval history: Patient seen and examined. Medical records and medication list reviewed. No acute event overnight noted by the RN. Patient remained on 80% FiO2 today, using BiPAP at night Discussed plan of care at bedside with patient, critical care attending and social psychologist/CM. Objective - Constitutional Vitals: Vital Signs - 12hr 09/19/19 09/19/19 09/19/19 03:00 03:02 04:00 Temperature 98.6 F Pulse Rate 101 H 98 H 94 H Pulse Rate [ 93 H From Monitor] Respiratory 28 H 32 H 38 H Rate Blood Pressure 108/55 125/75 119/70 O2 Sat by Pulse 95 98 96 Oximetry 09/19/19 09/19/19 09/19/19 05:00 06:00 07:00 Temperature Pulse Rate 92 H 92 H 95 H Pulse Rate [ From Monitor] Respiratory 32 H 34 H 32 H Rate Blood Pressure 137/81 131/82 122/77 O2 Sat by Pulse 92 90 92 Oximetry 09/19/19 09/19/19 09/19/19 08:00 09:00 10:00 Temperature 98.6 F Pulse Rate 92 H 101 H 100 H Pulse Rate [ 103 H From Monitor] Respiratory 29 H 40 H 23 Rate Blood Pressure 114/72 115/68 123/75 O2 Sat by Pulse 93 94 91 Oximetry 09/19/19 09/19/19 09/19/19 11:00 12:00 12:01 Temperature 98.4 F Pulse Rate 98 H 108 H 107 H Pulse Rate [ 108 H From Monitor] Respiratory 36 H 28 H 36 H Rate Blood Pressure 100/48 121/77 O2 Sat by Pulse 90 94 95 Oximetry 09/19/19 13:00 Temperature Pulse Rate 94 H Pulse Rate [ From Monitor] Respiratory 32 H Rate Blood Pressure 116/67 O2 Sat by Pulse 94 Oximetry - Labs CBC & Chem 7: 09/16/19 05:42 09/18/19 05:45
[2019-09-19] MEDS: oxyCODONE /ACETAMINOPHEN 5-325MG TAB PO PRN (20:26)
[2019-09-19] MEDS: ENOXAPARIN 40 MG/0.4 ML INJ SUB-Q SCH (21:29)
[2019-09-20] MEDS: FUROSEMIDE 40 MG/4 ML INJ IV SCH ×2 (06:10→18:51)
--- NOTE | 2019-09-20 07:50 | Progress Note ---
Assessment and Plan 39 y/o morbidly obese female with acute on chronic respiratory failure ELLY and OHS 1. Must wear PPV anytime she is sleeping, discussed again with patient. 2. Continue lasix therapy 3. Suggest checking a chemistry. Not done in the last 48 hours 4. Nutrition education 5. Patient would likely benefit from LTACH as she has had long standing hypoxemia and will be difficult wean from HFNC given her morbid, morbid obesity. CM is working on this. Subjective Date of service: 09/20/19 Interval history: No acute events. Stable. Remains on HF Objective Vital Signs - 12hr 09/19/19 09/19/19 09/19/19 19:50 19:55 20:00 Temperature 98.6 F Pulse Rate 99 H 102 H Pulse Rate [ Anterior Bilateral Throughout] Pulse Rate [ 95 H From Monitor] Respiratory 28 H 31 H Rate Respiratory Rate [Anterior Bilateral Throughout] Blood Pressure 129/86 O2 Sat by Pulse 93 94 Oximetry 09/19/19 09/19/19 09/19/19 21:01 21:25 22:00 Temperature Pulse Rate 98 H 100 H Pulse Rate [ 98 H Anterior Bilateral Throughout] Pulse Rate [ From Monitor] Respiratory 36 H 40 H Rate Respiratory 26 H Rate [Anterior Bilateral Throughout] Blood Pressure 112/56 115/46 O2 Sat by Pulse 93 94 Oximetry 09/19/19 09/19/19 09/20/19 22:19 23:01 00:00 Temperature 98.3 F Pulse Rate 105 H 102 H 95 H Pulse Rate [ Anterior Bilateral Throughout] Pulse Rate [ 90 From Monitor] Respiratory 20 30 H 24 Rate Respiratory Rate [Anterior Bilateral Throughout] Blood Pressure 115/46 115/46 125/72 O2 Sat by Pulse 94 92 94 Oximetry 09/20/19 09/20/19 09/20/19 01:00 02:00 02:30 Temperature Pulse Rate 95 H Pulse Rate [ Anterior Bilateral Throughout] Pulse Rate [ From Monitor] Respiratory 30 H Rate Respiratory Rate [Anterior Bilateral Throughout] Blood Pressure 131/71 116/65 116/65 O2 Sat by Pulse 95 90 95 Oximetry 09/20/19 09/20/19 09/20/19 03:00 04:00 04:01 Temperature 98.3 F Pulse Rate 94 H 94 H 94 H Pulse Rate [ Anterior Bilateral Throughout] Pulse Rate [ 94 H From Monitor] Respiratory 15 33 H 29 H Rate Respiratory Rate [Anterior Bilateral Throughout] Blood Pressure 116/65 147/78 O2 Sat by Pulse 97 95 Oximetry 09/20/19 09/20/19 09/20/19 05:01 05:38 06:01 Temperature Pulse Rate 86 91 H 101 H Pulse Rate [ Anterior Bilateral Throughout] Pulse Rate [ From Monitor] Respiratory 22 36 H 13 Rate Respiratory Rate [Anterior Bilateral Throughout] Blood Pressure 115/68 115/68 119/60 O2 Sat by Pulse 94 95 89 Oximetry Constitutional: no acute distress, other (morbidly obese) Eyes: non-icteric Neck: other (extremely large in circumference) Effort: normal Ascultation: Bilateral: diminished breath sounds (secondary to body habitus) Percussion: Bilateral: not dull Tactile fremitus: Bilateral: diminished Cardiovascular: regular rate and rhythm Gastrointestinal: other (morbidly obese) Neurologic: normal mental status, non-focal exam CBC and BMP: 09/16/19 05:42 09/18/19 05:45 ABG, PT/INR, D-dimer: ABG POC ABG pH 7.212 (7.35-7.45) L 09/14/19 13:58 POC ABG pO2 55 (80-105) L 09/14/19 13:58 PT/INR, D-dimer PT 13.3 Sec. (12.2-14.9) 09/14/19 12:43 INR 1.02 (0.87-1.13) 09/14/19 12:43 Abnormal lab findings: Abnormal Labs 09/14/19 09/14/19 09/14/19 12:43 12:43 13:44 WBC 11.4 H Hgb MCH 24 L MCHC 29 L RDW 18.2 H Lymph % (Auto) Lymph # Seg Neutrophils % Seg Neuts % (Manual) 84.0 H Lymphocytes % (Manual) 11.0 L Nucleated RBC % 3.0 H Seg Neutrophils # Seg Neutrophils # Man 9.6 H Lymphocytes # (Manual) POC ABG pH 7.207 L POC ABG pO2 59 L Sodium Potassium Chloride 88.5 L Carbon Dioxide 44 H* Creatinine 0.4 L Glucose POC Glucose Total Protein 9.0 H Albumin 3.4 L 09/14/19 09/15/19 09/15/19 13:58 07:35 07:35 WBC 12.0 H Hgb 9.7 L MCH 24 L MCHC 29 L RDW 18.0 H Lymph % (Auto) Lymph # Seg Neutrophils % Seg Neuts % (Manual) 91.0 H Lymphocytes % (Manual) 5.0 L Nucleated RBC % 2.0 H Seg Neutrophils # Seg Neutrophils # Man 10.9 H Lymphocytes # (Manual) 0.6 L POC ABG pH 7.212 L POC ABG pO2 55 L Sodium 146 H Potassium 5.2 H Chloride 88.7 L Carbon Dioxide 49 H* Creatinine 0.4 L Glucose 101 H POC Glucose Total Protein Albumin 3.3 L 09/16/19 09/16/19 09/16/19 05:42 05:42 12:55 WBC Hgb MCH 25 L MCHC RDW 18.0 H Lymph % (Auto) 6.2 L Lymph # 0.6 L Seg Neutrophils % 89.0 H Seg Neuts % (Manual) Lymphocytes % (Manual) Nucleated RBC % Seg Neutrophils # 9.2 H Seg Neutrophils # Man Lymphocytes # (Manual) POC ABG pH POC ABG pO2 Sodium Potassium 5.6 H Chloride 86.8 L Carbon Dioxide 50 H* Creatinine 0.4 L Glucose 117 H POC Glucose 146 H Total Protein 8.4 H Albumin 3.1 L 09/16/19 09/17/19 09/18/19 18:07 06:52 05:45 WBC Hgb MCH MCHC RDW Lymph % (Auto) Lymph # Seg Neutrophils % Seg Neuts % (Manual) Lymphocytes % (Manual) Nucleated RBC % Seg Neutrophils # Seg Neutrophils # Man Lymphocytes # (Manual) POC ABG pH POC ABG pO2 Sodium Potassium 5.1 H D Chloride 82.4 L 85.9 L Carbon Dioxide 52 H* 44 H* D Creatinine 0.5 L 0.4 L Glucose POC Glucose 135 H Total Protein Albumin
[2019-09-20] MEDS: IPRATROPIUM/ALBUTEROL SULFATE 3 ML AMPUL.NEB IH SCH ×3 (08:23→21:06)
[2019-09-20] MEDS: BUDESONIDE 0.5 MG/2 ML NEBU IH SCH ×2 (08:23→21:06)
[2019-09-20] MEDS: ARFORMOTEROL 15 MCG/2 ML NEBU IH SCH ×2 (08:23→21:06)
[2019-09-20] MEDS: FAMOTIDINE 20 MG TAB PO SCH ×2 (09:47→21:31)
--- NOTE | 2019-09-20 10:18 | Progress Note ---
Assessment and Plan /Acute respiratory failure with hypoxia and hypercarbia Patient on Bipap , oxygen titrate O2 sats to more than 90% Sec to obesity hypoventilation and obstructive sleep apnea cont Nebulizers, s/p IV steroids IV antibiotics for 5 days BiPAP as needed, PPV every time she sleeps , s/p Diamox by pulmonary will need Trilogy machine at discharge if o2 requirement decreases - CM working on LTAC placement /Obesity hypoventilation syndrome; Supplemental Oxygen, nebulizers, supportive care, wt reduction diet /Hyperkalemia:Resolved /Obstructive sleep apnea: CPAP/BiPAP at night, and daytime as needed. Needs outpatient sleep study on discharge / Morbid obesity BMI 73.2. Advised weight reduction when medically stable with diet and exercise as appropriate Recommend outpatient bariatric surgical evaluation /Hyperkalemia - give one dose of kayexalate /DVT prophylaxis. Lovenox GI prophylaxis; Pepcid. --Full code Status Monitor clinically and adjust the management as needed Discharge planning. Trilogy at discharge, evaluation for CPAP BiPAP inpt vs outpatient Critical care time 31 minutes Disposition; LTAC - pending authorization Brief History 39-year-old morbidly obese female patient was admitted through emergency room with worsening shortness of breath cough productive and wheezing Patient was admitted, symptomatically managed on oxygen BiPAP nebulizers, IV antibiotics, IV steroids and supportive care Patient was evaluated by pulmonary, medications optimized, Advised PPV Every t jhonny she sleeps and at nights, and s/p Diamox. Still on high O2 - plan for LTAC Hospitalist Physical General appearance: Present: mild distress, well-nourished, obese (morbidly obese) - EENT Eyes: Present: PERRL, EOM intact - Neck Neck: Present: supple, normal ROM - Respiratory Respiratory effort: labored Respiratory: bilateral: diminished, rhonchi, negative: rales, wheezing - Cardiovascular Rhythm: regular Heart Sounds: Present: S1 & S2 - Extremities Extremities: no ischemia, No edema - Abdominal General gastrointestinal: soft, non-tender, non-distended, normal bowel sounds - Integumentary Integumentary: Present: clear, warm - Psychiatric Psychiatric: appropriate mood/affect, cooperative - Neurologic Neurologic: CNII-XII intact, moves all extremities Subjective Date of service: 09/20/19 Interval history: Patient seen and examined. Medical records and medication list reviewed. No acute event overnight noted by the RN. Patient remained on 80% FiO2 today, using BiPAP at night Discussed plan of care at bedside with patient, critical care attending and social media coordinator/CM. Objective - Constitutional Vitals: Vital Signs - 12hr 09/19/19 09/19/19 09/20/19 22:19 23:01 00:00 Temperature 98.3 F Pulse Rate 105 H 102 H 95 H Pulse Rate [ Anterior Bilateral Throughout] Pulse Rate [ 90 From Monitor] Respiratory 20 30 H 24 Rate Respiratory Rate [Anterior Bilateral Throughout] Blood Pressure 115/46 115/46 125/72 O2 Sat by Pulse 94 92 94 Oximetry 09/20/19 09/20/19 09/20/19 01:00 02:00 02:30 Temperature Pulse Rate 95 H Pulse Rate [ Anterior Bilateral Throughout] Pulse Rate [ From Monitor] Respiratory 30 H Rate Respiratory Rate [Anterior Bilateral Throughout] Blood Pressure 131/71 116/65 116/65 O2 Sat by Pulse 95 90 95 Oximetry 09/20/19 09/20/19 09/20/19 03:00 04:00 04:01 Temperature 98.3 F Pulse Rate 94 H 94 H 94 H Pulse Rate [ Anterior Bilateral Throughout] Pulse Rate [ 94 H From Monitor] Respiratory 15 33 H 29 H Rate Respiratory Rate [Anterior Bilateral Throughout] Blood Pressure 116/65 147/78 O2 Sat by Pulse 97 95 Oximetry 09/20/19 09/20/19 09/20/19 05:01 05:38 06:01 Temperature Pulse Rate 86 91 H 101 H Pulse Rate [ Anterior Bilateral Throughout] Pulse Rate [ From Monitor] Respiratory 22 36 H 13 Rate Respiratory Rate [Anterior Bilateral Throughout] Blood Pressure 115/68 115/68 119/60 O2 Sat by Pulse 94 95 89 Oximetry 09/20/19 09/20/19 09/20/19 08:00 08:21 08:23 Temperature 99.7 F H Pulse Rate Pulse Rate [ 100 H Anterior Bilateral Throughout] Pulse Rate [ From Monitor] Respiratory Rate Respiratory 23 Rate [Anterior Bilateral Throughout] Blood Pressure O2 Sat by Pulse 94 Oximetry - Labs CBC & Chem 7: 09/21/19 04:58 09/21/19 04:58
[2019-09-20] MEDS ORDERED: SODIUM POLYSTYRENE 15 GM/60 ML ORAL LIQD PO ONE (11:00)
[2019-09-20] MEDS: ENOXAPARIN 40 MG/0.4 ML INJ SUB-Q SCH (21:31)
[2019-09-20] MEDS: oxyCODONE /ACETAMINOPHEN 5-325MG TAB PO PRN (21:34)
[2019-09-21 05:29] LABS: BUN/Creatinine Ratio 22; Blood Urea Nitrogen 11 mg/dL (7-17); Hemolysis Index 7
[2019-09-21 05:58] LABS: Basophils # (Auto) 0.1 K/mm3 (0.0-0.1); Eosinophils # (Auto) 0.5 K/mm3 (0.0-0.4); Eosinophils % (Auto) 4.6 % (0.0-4.3); Monocytes # (Auto) 0.8 K/mm3 (0.0-0.8); Monocytes % (Auto) 6.9 % (0.0-7.3)
[2019-09-21 06:28] LABS: Basophils % (Auto) 0.5 % (0.0-1.8); Lymphocytes # (Auto) 1.9 K/mm3 (1.2-5.4); Lymphocytes % (Auto) 16.9 % (13.4-35.0); Mean Corpuscular HGB Conc 30 % (30-34); Mean Corpuscular Volume 80 fl (79-97); Platelet Count 167 K/mm3 (140-440); Red Cell Distribution Width 17.9 % (13.2-15.2)
[2019-09-21] MEDS: FUROSEMIDE 40 MG/4 ML INJ IV SCH (07:11)
[2019-09-21] MEDS: oxyCODONE /ACETAMINOPHEN 5-325MG TAB PO PRN ×2 (07:17→22:02)
[2019-09-21] MEDS: IPRATROPIUM/ALBUTEROL SULFATE 3 ML AMPUL.NEB IH SCH ×3 (08:04→22:29)
[2019-09-21] MEDS: BUDESONIDE 0.5 MG/2 ML NEBU IH SCH ×2 (08:04→22:28)
[2019-09-21] MEDS: ARFORMOTEROL 15 MCG/2 ML NEBU IH SCH ×2 (08:05→22:28)
[2019-09-21] MEDS: FAMOTIDINE 20 MG TAB PO SCH ×2 (10:29→22:02)
--- NOTE | 2019-09-21 11:45 | Progress Note ---
Assessment and Plan 39 y/o morbidly obese female with acute on chronic respiratory failure ELLY and OHS 1. Must wear PPV anytime she is sleeping, discussed again with patient. 2. Continue lasix therapy 3. CO2 is 50, this is chronic. Have given diamox in the past. Will given a one time dose today. 4. Nutrition education 5. Patient would likely benefit from LTACH as she has had long standing hypoxemia and will be difficult wean from HFNC given her morbid, morbid obesity. CM is working on this. Subjective Date of service: 09/21/19 Interval history: no acute events. Was able to drop FiO2 down to 75%. Good sats. Has been denied by [facility]. Objective Vital Signs - 12hr 09/20/19 09/21/19 09/21/19 23:44 00:00 01:00 Temperature 98.8 F Pulse Rate 99 H 99 H Respiratory 24 35 H Rate Blood Pressure 119/68 122/67 O2 Sat by Pulse 96 86 Oximetry 09/21/19 09/21/19 09/21/19 01:27 02:00 03:00 Temperature Pulse Rate 98 H 99 H 93 H Respiratory 34 H 23 24 Rate Blood Pressure 122/67 124/75 132/77 O2 Sat by Pulse 97 92 95 Oximetry 09/21/19 09/21/19 09/21/19 04:00 04:32 05:00 Temperature 98.0 F Pulse Rate 91 H 92 H Respiratory 40 H 16 Rate Blood Pressure 114/61 114/61 O2 Sat by Pulse 87 88 Oximetry 09/21/19 09/21/19 09/21/19 06:00 07:00 08:00 Temperature 99.4 F Pulse Rate 94 H 103 H Respiratory 34 H 24 Rate Blood Pressure 133/81 115/59 O2 Sat by Pulse 88 80 L Oximetry Constitutional: no acute distress, other (morbidly obese) Eyes: non-icteric Neck: other (extremely large in circumference) Effort: normal Ascultation: Bilateral: diminished breath sounds (secondary to body habitus) Percussion: Bilateral: not dull Tactile fremitus: Bilateral: diminished Cardiovascular: regular rate and rhythm Gastrointestinal: other (morbidly obese) Neurologic: normal mental status, non-focal exam CBC and BMP: 09/21/19 04:58 09/21/19 04:58 ABG, PT/INR, D-dimer: ABG POC ABG pH 7.212 (7.35-7.45) L 09/14/19 13:58 POC ABG pO2 55 (80-105) L 09/14/19 13:58 PT/INR, D-dimer PT 13.3 Sec. (12.2-14.9) 09/14/19 12:43 INR 1.02 (0.87-1.13) 09/14/19 12:43 Abnormal lab findings: Abnormal Labs 09/14/19 09/14/19 09/14/19 12:43 12:43 13:44 WBC 11.4 H Hgb MCH 24 L MCHC 29 L RDW 18.2 H Lymph % (Auto) Eos % (Auto) Lymph # Eos # Seg Neutrophils % Seg Neuts % (Manual) 84.0 H Lymphocytes % (Manual) 11.0 L Nucleated RBC % 3.0 H Seg Neutrophils # Seg Neutrophils # Man 9.6 H Lymphocytes # (Manual) POC ABG pH 7.207 L POC ABG pO2 59 L Sodium Potassium Chloride 88.5 L Carbon Dioxide 44 H* Creatinine 0.4 L Glucose POC Glucose Total Protein 9.0 H Albumin 3.4 L 09/14/19 09/15/19 09/15/19 13:58 07:35 07:35 WBC 12.0 H Hgb 9.7 L MCH 24 L MCHC 29 L RDW 18.0 H Lymph % (Auto) Eos % (Auto) Lymph # Eos # Seg Neutrophils % Seg Neuts % (Manual) 91.0 H Lymphocytes % (Manual) 5.0 L Nucleated RBC % 2.0 H Seg Neutrophils # Seg Neutrophils # Man 10.9 H Lymphocytes # (Manual) 0.6 L POC ABG pH 7.212 L POC ABG pO2 55 L Sodium 146 H Potassium 5.2 H Chloride 88.7 L Carbon Dioxide 49 H* Creatinine 0.4 L Glucose 101 H POC Glucose Total Protein Albumin 3.3 L 09/16/19 09/16/19 09/16/19 05:42 05:42 12:55 WBC Hgb MCH 25 L MCHC RDW 18.0 H Lymph % (Auto) 6.2 L Eos % (Auto) Lymph # 0.6 L Eos # Seg Neutrophils % 89.0 H Seg Neuts % (Manual) Lymphocytes % (Manual) Nucleated RBC % Seg Neutrophils # 9.2 H Seg Neutrophils # Man Lymphocytes # (Manual) POC ABG pH POC ABG pO2 Sodium Potassium 5.6 H Chloride 86.8 L Carbon Dioxide 50 H* Creatinine 0.4 L Glucose 117 H POC Glucose 146 H Total Protein 8.4 H Albumin 3.1 L 09/16/19 09/17/19 09/18/19 18:07 06:52 05:45 WBC Hgb MCH MCHC RDW Lymph % (Auto) Eos % (Auto) Lymph # Eos # Seg Neutrophils % Seg Neuts % (Manual) Lymphocytes % (Manual) Nucleated RBC % Seg Neutrophils # Seg Neutrophils # Man Lymphocytes # (Manual) POC ABG pH POC ABG pO2 Sodium Potassium 5.1 H D Chloride 82.4 L 85.9 L Carbon Dioxide 52 H* 44 H* D Creatinine 0.5 L 0.4 L Glucose POC Glucose 135 H Total Protein Albumin 09/21/19 09/21/19 04:58 04:58 WBC Hgb MCH 24 L MCHC RDW 17.9 H Lymph % (Auto) Eos % (Auto) 4.6 H Lymph # Eos # 0.5 H Seg Neutrophils % 71.1 H Seg Neuts % (Manual) Lymphocytes % (Manual) Nucleated RBC % Seg Neutrophils # 7.8 H Seg Neutrophils # Man Lymphocytes # (Manual) POC ABG pH POC ABG pO2 Sodium Potassium Chloride 85.7 L Carbon Dioxide 50 H* Creatinine 0.5 L Glucose POC Glucose Total Protein Albumin
[2019-09-21] MEDS ORDERED: WATER FOR INJ Sterile (PF) 10 ML ONE (15:25)
--- NOTE | 2019-09-21 16:16 | Progress Note ---
Assessment and Plan /Acute respiratory failure with hypoxia and hypercarbia Patient on Bipap , oxygen titrate O2 sats to more than 90% Sec to obesity hypoventilation and obstructive sleep apnea cont Nebulizers, s/p IV steroids IV antibiotics for 5 days BiPAP as needed, PPV every time she sleeps , s/p Diamox by pulmonary will need Trilogy machine at discharge if o2 requirement decreases - CM working on LTAC placement /Obesity hypoventilation syndrome; Supplemental Oxygen, nebulizers, supportive care, wt reduction diet /Hyperkalemia:Resolved /Obstructive sleep apnea: CPAP/BiPAP at night, and daytime as needed. Needs outpatient sleep study on discharge / Morbid obesity BMI 73.2. Advised weight reduction when medically stable with diet and exercise as appropriate Recommend outpatient bariatric surgical evaluation /Hyperkalemia - give one dose of kayexalate /DVT prophylaxis. Lovenox GI prophylaxis; Pepcid. --Full code Status Monitor clinically and adjust the management as needed Discharge planning. Trilogy at discharge, evaluation for CPAP BiPAP inpt vs outpatient Critical care time 31 minutes Disposition; LTAC - pending authorization Brief History 39-year-old morbidly obese female patient was admitted through emergency room with worsening shortness of breath cough productive and wheezing Patient was admitted, symptomatically managed on oxygen BiPAP nebulizers, IV antibiotics, IV steroids and supportive care Patient was evaluated by pulmonary, medications optimized, Advised PPV Every t jhonny she sleeps and at nights, and s/p Diamox. Still on high O2 - plan for LTAC Hospitalist Physical General appearance: Present: mild distress, well-nourished, obese (morbidly obese) - EENT Eyes: Present: PERRL, EOM intact - Neck Neck: Present: supple, normal ROM - Respiratory Respiratory effort: labored Respiratory: bilateral: diminished, rhonchi, negative: rales, wheezing - Cardiovascular Rhythm: regular Heart Sounds: Present: S1 & S2 - Extremities Extremities: no ischemia, No edema - Abdominal General gastrointestinal: soft, non-tender, non-distended, normal bowel sounds - Integumentary Integumentary: Present: clear, warm - Psychiatric Psychiatric: appropriate mood/affect, cooperative - Neurologic Neurologic: CNII-XII intact, moves all extremities Subjective Date of service: 09/21/19 Interval history: Patient seen and examined. Medical records and medication list reviewed. No acute event overnight noted by the RN. Patient remained on 75% FiO2 today, using BiPAP at night Discussed plan of care at bedside with patient, critical care attending and social worker masters/CM. Objective - Constitutional Vitals: Vital Signs - 12hr 09/21/19 09/21/19 09/21/19 04:32 05:00 06:00 Temperature 98.0 F Pulse Rate 92 H 94 H Respiratory 16 34 H Rate Blood Pressure 114/61 133/81 O2 Sat by Pulse 88 88 Oximetry 09/21/19 09/21/19 07:00 08:00 Temperature 99.4 F Pulse Rate 103 H Respiratory 24 Rate Blood Pressure 115/59 O2 Sat by Pulse 80 L Oximetry - Labs CBC & Chem 7: 09/21/19 04:58 09/21/19 04:58 Labs: Abnormal lab results 09/21/19 09/21/19 Range/Units 04:58 04:58 MCH 24 L (28-32) pg RDW 17.9 H (13.2-15.2) % Eos % (Auto) 4.6 H (0.0-4.3) % Eos # 0.5 H (0.0-0.4) K/mm3 Seg Neutrophils % 71.1 H (40.0-70.0) % Seg Neutrophils # 7.8 H (1.8-7.7) K/mm3 Chloride 85.7 L (98-107) mmol/L Carbon Dioxide 50 H* (22-30) mmol/L Creatinine 0.5 L (0.7-1.2) mg/dL
[2019-09-21] MEDS: ENOXAPARIN 40 MG/0.4 ML INJ SUB-Q SCH (22:02)
[2019-09-22] MEDS: FUROSEMIDE 40 MG/4 ML INJ IV SCH ×3 (06:43→18:01)
[2019-09-22] MEDS: BUDESONIDE 0.5 MG/2 ML NEBU IH SCH ×2 (09:07→21:09)
[2019-09-22] MEDS: IPRATROPIUM/ALBUTEROL SULFATE 3 ML AMPUL.NEB IH SCH ×3 (09:07→21:09)
[2019-09-22] MEDS: ARFORMOTEROL 15 MCG/2 ML NEBU IH SCH ×2 (09:07→21:09)
[2019-09-22] MEDS: FAMOTIDINE 20 MG TAB PO SCH ×2 (09:13→21:19)
--- NOTE | 2019-09-22 14:36 | Progress Note ---
Assessment and Plan /Acute respiratory failure with hypoxia and hypercarbia Patient on Bipap , oxygen titrate O2 sats to more than 90% Sec to obesity hypoventilation and obstructive sleep apnea cont Nebulizers, s/p IV steroids IV antibiotics for 5 days BiPAP as needed, PPV every time she sleeps , s/p Diamox by pulmonary will need Trilogy machine at discharge if o2 requirement decreases - CM working on LTAC placement /Obesity hypoventilation syndrome; Supplemental Oxygen, nebulizers, supportive care, wt reduction diet /Hyperkalemia:Resolved /Obstructive sleep apnea: CPAP/BiPAP at night, and daytime as needed. Needs outpatient sleep study on discharge / Morbid obesity BMI 73.2. Advised weight reduction when medically stable with diet and exercise as appropriate Recommend outpatient bariatric surgical evaluation /Hyperkalemia - give one dose of kayexalate /DVT prophylaxis. Lovenox GI prophylaxis; Pepcid. --Full code Status Monitor clinically and adjust the management as needed Discharge planning. Trilogy at discharge, evaluation for CPAP BiPAP inpt vs outpatient Critical care time 31 minutes Disposition; LTAC - pending authorization Brief History 39-year-old morbidly obese female patient was admitted through emergency room with worsening shortness of breath cough productive and wheezing Patient was admitted, symptomatically managed on oxygen BiPAP nebulizers, IV antibiotics, IV steroids and supportive care Patient was evaluated by pulmonary, medications optimized, Advised PPV Every t jhonny she sleeps and at nights, and s/p Diamox. Still on high O2 - plan for LTAC Hospitalist Physical General appearance: Present: mild distress, well-nourished, obese (morbidly obese) - EENT Eyes: Present: PERRL, EOM intact - Neck Neck: Present: supple, normal ROM - Respiratory Respiratory effort: labored Respiratory: bilateral: diminished, rhonchi, negative: rales, wheezing - Cardiovascular Rhythm: regular Heart Sounds: Present: S1 & S2 - Extremities Extremities: no ischemia, No edema - Abdominal General gastrointestinal: soft, non-tender, non-distended, normal bowel sounds - Integumentary Integumentary: Present: clear, warm - Psychiatric Psychiatric: appropriate mood/affect, cooperative - Neurologic Neurologic: CNII-XII intact, moves all extremities Subjective Date of service: 09/22/19 Interval history: Patient seen and examined. Medical records and medication list reviewed. No acute event overnight noted by the RN. Patient placed on 65% FiO2 today, using BiPAP at night Discussed plan of care at bedside with patient, critical care attending and social psychologist/CM. Objective - Constitutional Vitals: Vital Signs - 12hr 09/22/19 09/22/19 09/22/19 03:00 04:01 04:19 Temperature Pulse Rate 88 91 H 97 H Pulse Rate [ Anterior Bilateral Throughout] Pulse Rate [ From Monitor] Respiratory 25 H 21 Rate Respiratory Rate [Anterior Bilateral Throughout] Blood Pressure 136/79 147/72 O2 Sat by Pulse 93 98 Oximetry 09/22/19 09/22/19 09/22/19 04:20 04:28 05:01 Temperature 97.9 F Pulse Rate 91 H Pulse Rate [ Anterior Bilateral Throughout] Pulse Rate [ 97 H From Monitor] Respiratory 28 H 20 Rate Respiratory Rate [Anterior Bilateral Throughout] Blood Pressure 147/72 O2 Sat by Pulse 92 Oximetry 09/22/19 09/22/19 09/22/19 06:01 07:01 08:00 Temperature 98.8 F Pulse Rate 94 H 100 H 98 H Pulse Rate [ Anterior Bilateral Throughout] Pulse Rate [ 98 H From Monitor] Respiratory 13 20 20 Rate Respiratory Rate [Anterior Bilateral Throughout] Blood Pressure 135/79 123/87 O2 Sat by Pulse 94 94 92 Oximetry 09/22/19 09/22/19 09/22/19 08:01 09:00 09:01 Temperature Pulse Rate 101 H 102 H Pulse Rate [ 101 H Anterior Bilateral Throughout] Pulse Rate [ From Monitor] Respiratory 16 25 H Rate Respiratory 18 Rate [Anterior Bilateral Throughout] Blood Pressure 135/79 171/120 O2 Sat by Pulse 97 Oximetry 09/22/19 09/22/19 09/22/19 10:01 11:01 12:00 Temperature Pulse Rate 95 H 89 96 H Pulse Rate [ Anterior Bilateral Throughout] Pulse Rate [ 96 H From Monitor] Respiratory 33 H 24 24 Rate Respiratory Rate [Anterior Bilateral Throughout] Blood Pressure 132/82 133/76 O2 Sat by Pulse 92 90 96 Oximetry 09/22/19 12:01 Temperature Pulse Rate 97 H Pulse Rate [ Anterior Bilateral Throughout] Pulse Rate [ From Monitor] Respiratory 17 Rate Respiratory Rate [Anterior Bilateral Throughout] Blood Pressure 154/87 O2 Sat by Pulse 96 Oximetry - Labs CBC & Chem 7: 09/21/19 04:58 09/21/19 04:58
[2019-09-22] MEDS: oxyCODONE /ACETAMINOPHEN 5-325MG TAB PO PRN ×2 (16:54→21:17)
--- NOTE | 2019-09-22 20:12 | Progress Note ---
Assessment and Plan Imp: 1. ELLY/OHS/Morbid obesity 2. Acute respiratory failure, hypoxia 3. A/C respiratory failure, hypercapnea 2/2 OHS 4. Acute CHF 5. R/o COPD Rec: 1. Cont. Lasix 2. Diamox IV x 1 3. Wean HFNC to keep sats 88-94% 4. BIPAP QHS 5. Weight loss 6. Agree w/ NIV at d/c 7. Complex decision-making Plan of care reviewed with patient, she understands/agrees Subjective Date of service: 09/22/19 Principal diagnosis: A/C respiratory failure Interval history: No events. On HFNC. Feeling a little better. No new complaints. Active Medications Acetaminophen (Tylenol) 650 mg PO Q4H PRN PRN Reason: Pain MILD(1-3)/Fever >100.5/DOMINIQUE Acetazolamide (Diamox) 500 mg IV ONCE ONE Stop: 09/22/19 20:10 Albuterol (Proventil) 2.5 mg IH Q4H PRN PRN Reason: Shortness Of Breath/ Wheezing Albuterol/Ipratropium (Duoneb *Not For Prn Use*) 1 ampul IH TIDRT [facility] Last Admin: 09/22/19 13:48 Dose: 1 ampul Documented by: Arformoterol Tartrate (Brovana Nebu) 15 mcg IH Q12HRT [facility] Last Admin: 09/22/19 09:07 Dose: 15 mcg Documented by: Budesonide (Pulmicort) 0.5 mg IH Q12HRT [facility] Last Admin: 09/22/19 09:07 Dose: 0.5 mg Documented by: Enoxaparin Sodium (Enoxaparin) 40 mg SUB-Q QDAY@2200 [facility] Last Admin: 09/21/19 22:02 Dose: 40 mg Documented by: Famotidine (Pepcid) 20 mg PO BID [facility] Last Admin: 09/22/19 09:13 Dose: 20 mg Documented by: Furosemide (Lasix) 40 mg IV 0600,1800 [facility] Last Admin: 09/22/19 18:01 Dose: 40 mg Documented by: Metoclopramide HCl (Reglan) 10 mg IV Q6H PRN PRN Reason: Nausea And Vomiting Ondansetron HCl (Zofran) 4 mg IV Q8H PRN PRN Reason: Nausea And Vomiting Oxycodone/Acetaminophen (Percocet 5/325) 1 tab PO Q6H PRN PRN Reason: Pain, Moderate (4-6) Last Admin: 09/22/19 16:54 Dose: 1 tab Documented by: Sodium Chloride (Sodium Chloride Flush Syringe 10 Ml) 10 ml IV BID [facility] Last Admin: 09/22/19 09:13 Dose: 10 ml Documented by: Sodium Chloride (Sodium Chloride Flush Syringe 10 Ml) 10 ml IV PRN PRN PRN Reason: LINE FLUSH Objective Vital Signs - 12hr 09/22/19 09/22/19 09/22/19 09:00 09:01 10:01 Pulse Rate 102 H 95 H Pulse Rate [ 101 H Anterior Bilateral Throughout] Pulse Rate [ From Monitor] Respiratory 25 H 33 H Rate Respiratory 18 Rate [Anterior Bilateral Throughout] Blood Pressure 171/120 132/82 O2 Sat by Pulse 92 Oximetry 09/22/19 09/22/19 09/22/19 11:01 12:00 12:01 Pulse Rate 89 96 H 97 H Pulse Rate [ Anterior Bilateral Throughout] Pulse Rate [ 96 H From Monitor] Respiratory 24 24 17 Rate Respiratory Rate [Anterior Bilateral Throughout] Blood Pressure 133/76 154/87 O2 Sat by Pulse 90 96 96 Oximetry 09/22/19 09/22/19 09/22/19 13:01 14:00 14:01 Pulse Rate 98 H 91 H Pulse Rate [ 67 Anterior Bilateral Throughout] Pulse Rate [ From Monitor] Respiratory 14 21 Rate Respiratory 25 H Rate [Anterior Bilateral Throughout] Blood Pressure 130/77 134/83 O2 Sat by Pulse 91 91 90 Oximetry 09/22/19 09/22/19 09/22/19 15:01 16:00 17:01 Pulse Rate 96 H 97 H 99 H Pulse Rate [ Anterior Bilateral Throughout] Pulse Rate [ 97 H From Monitor] Respiratory 13 37 H 14 Rate Respiratory Rate [Anterior Bilateral Throughout] Blood Pressure 105/64 117/72 114/78 O2 Sat by Pulse 93 90 Oximetry Constitutional: no acute distress, other (morbidly obese) Eyes: non-icteric Neck: other (extremely large in circumference) Effort: normal Ascultation: Bilateral: diminished breath sounds (secondary to body habitus) Tactile fremitus: Bilateral: diminished Cardiovascular: regular rate and rhythm Gastrointestinal: normoactive bowel sounds, non-tender, non-distended, other (morbidly obese) Integumentary: normal Extremities: no cyanosis, pink and warm Neurologic: normal mental status, non-focal exam, pupils equal and round Psychiatric: mood appropriate, affect normal CBC and BMP: 09/21/19 04:58 09/21/19 04:58 ABG, PT/INR, D-dimer: ABG POC ABG pH 7.212 (7.35-7.45) L 09/14/19 13:58 POC ABG pO2 55 (80-105) L 09/14/19 13:58 PT/INR, D-dimer PT 13.3 Sec. (12.2-14.9) 09/14/19 12:43 INR 1.02 (0.87-1.13) 09/14/19 12:43 Abnormal lab findings: Abnormal Labs 09/14/19 09/14/19 09/14/19 12:43 12:43 13:44 WBC 11.4 H Hgb MCH 24 L MCHC 29 L RDW 18.2 H Lymph % (Auto) Eos % (Auto) Lymph # Eos # Seg Neutrophils % Seg Neuts % (Manual) 84.0 H Lymphocytes % (Manual) 11.0 L Nucleated RBC % 3.0 H Seg Neutrophils # Seg Neutrophils # Man 9.6 H Lymphocytes # (Manual) POC ABG pH 7.207 L POC ABG pO2 59 L Sodium Potassium Chloride 88.5 L Carbon Dioxide 44 H* Creatinine 0.4 L Glucose POC Glucose Total Protein 9.0 H Albumin 3.4 L 09/14/19 09/15/19 09/15/19 13:58 07:35 07:35 WBC 12.0 H Hgb 9.7 L MCH 24 L MCHC 29 L RDW 18.0 H Lymph % (Auto) Eos % (Auto) Lymph # Eos # Seg Neutrophils % Seg Neuts % (Manual) 91.0 H Lymphocytes % (Manual) 5.0 L Nucleated RBC % 2.0 H Seg Neutrophils # Seg Neutrophils # Man 10.9 H Lymphocytes # (Manual) 0.6 L POC ABG pH 7.212 L POC ABG pO2 55 L Sodium 146 H Potassium 5.2 H Chloride 88.7 L Carbon Dioxide 49 H* Creatinine 0.4 L Glucose 101 H POC Glucose Total Protein Albumin 3.3 L 09/16/19 09/16/19 09/16/19 05:42 05:42 12:55 WBC Hgb MCH 25 L MCHC RDW 18.0 H Lymph % (Auto) 6.2 L Eos % (Auto) Lymph # 0.6 L Eos # Seg Neutrophils % 89.0 H Seg Neuts % (Manual) Lymphocytes % (Manual) Nucleated RBC % Seg Neutrophils # 9.2 H Seg Neutrophils # Man Lymphocytes # (Manual) POC ABG pH POC ABG pO2 Sodium Potassium 5.6 H Chloride 86.8 L Carbon Dioxide 50 H* Creatinine 0.4 L Glucose 117 H POC Glucose 146 H Total Protein 8.4 H Albumin 3.1 L 09/16/19 09/17/19 09/18/19 18:07 06:52 05:45 WBC Hgb MCH MCHC RDW Lymph % (Auto) Eos % (Auto) Lymph # Eos # Seg Neutrophils % Seg Neuts % (Manual) Lymphocytes % (Manual) Nucleated RBC % Seg Neutrophils # Seg Neutrophils # Man Lymphocytes # (Manual) POC ABG pH POC ABG pO2 Sodium Potassium 5.1 H D Chloride 82.4 L 85.9 L Carbon Dioxide 52 H* 44 H* D Creatinine 0.5 L 0.4 L Glucose POC Glucose 135 H Total Protein Albumin 09/21/19 09/21/19 04:58 04:58 WBC Hgb MCH 24 L MCHC RDW 17.9 H Lymph % (Auto) Eos % (Auto) 4.6 H Lymph # Eos # 0.5 H Seg Neutrophils % 71.1 H Seg Neuts % (Manual) Lymphocytes % (Manual) Nucleated RBC % Seg Neutrophils # 7.8 H Seg Neutrophils # Man Lymphocytes # (Manual) POC ABG pH POC ABG pO2 Sodium Potassium Chloride 85.7 L Carbon Dioxide 50 H* Creatinine 0.5 L Glucose POC Glucose Total Protein Albumin Chest x-ray: report reviewed, image reviewed (cardiomegaly with bilateral infiltrates)
[2019-09-22] MEDS: ENOXAPARIN 40 MG/0.4 ML INJ SUB-Q SCH (21:19)
[2019-09-23] MEDS: oxyCODONE /ACETAMINOPHEN 5-325MG TAB PO PRN ×2 (06:06→21:43)
[2019-09-23] MEDS: FUROSEMIDE 40 MG/4 ML INJ IV SCH ×2 (06:06→18:25)
[2019-09-23] MEDS: BUDESONIDE 0.5 MG/2 ML NEBU IH SCH ×2 (08:21→20:46)
[2019-09-23] MEDS: ARFORMOTEROL 15 MCG/2 ML NEBU IH SCH ×2 (08:21→23:51)
[2019-09-23] MEDS: IPRATROPIUM/ALBUTEROL SULFATE 3 ML AMPUL.NEB IH SCH ×3 (08:22→20:46)
[2019-09-23] MEDS: FAMOTIDINE 20 MG TAB PO SCH ×2 (09:32→21:44)
--- NOTE | 2019-09-23 14:00 | Progress Note ---
Assessment and Plan /Acute respiratory failure with hypoxia and hypercarbia Patient on Bipap , oxygen titrate O2 sats to more than 90% Sec to obesity hypoventilation and obstructive sleep apnea cont Nebulizers, s/p IV steroids IV antibiotics for 5 days BiPAP as needed, PPV every time she sleeps , s/p Diamox by pulmonary will need Trilogy machine at discharge if o2 requirement decreases - CM working on LTAC placement /Obesity hypoventilation syndrome; Supplemental Oxygen, nebulizers, supportive care, wt reduction diet /Hyperkalemia:Resolved /Obstructive sleep apnea: CPAP/BiPAP at night, and daytime as needed. Needs outpatient sleep study on discharge / Morbid obesity BMI 73.2. Advised weight reduction when medically stable with diet and exercise as appropriate Recommend outpatient bariatric surgical evaluation /Hyperkalemia - give one dose of kayexalate /DVT prophylaxis. Lovenox GI prophylaxis; Pepcid. --Full code Status Monitor clinically and adjust the management as needed Discharge planning. Trilogy at discharge, evaluation for CPAP BiPAP inpt vs outpatient Critical care time 31 minutes Disposition; LTAC - pending authorization Brief History 39-year-old morbidly obese female patient was admitted through emergency room with worsening shortness of breath cough productive and wheezing Patient was admitted, symptomatically managed on oxygen BiPAP nebulizers, IV antibiotics, IV steroids and supportive care Patient was evaluated by pulmonary, medications optimized, Advised PPV Every t jhonny she sleeps and at nights, and s/p Diamox. Still on high O2 - plan for LTAC Hospitalist Physical General appearance: Present: mild distress, well-nourished, obese (morbidly obese) - EENT Eyes: Present: PERRL, EOM intact - Neck Neck: Present: supple, normal ROM - Respiratory Respiratory effort: labored Respiratory: bilateral: diminished, rhonchi, negative: rales, wheezing - Cardiovascular Rhythm: regular Heart Sounds: Present: S1 & S2 - Extremities Extremities: no ischemia, No edema - Abdominal General gastrointestinal: soft, non-tender, non-distended, normal bowel sounds - Integumentary Integumentary: Present: clear, warm - Psychiatric Psychiatric: appropriate mood/affect, cooperative - Neurologic Neurologic: CNII-XII intact, moves all extremities Subjective Date of service: 09/23/19 Principal diagnosis: A/C respiratory failure Interval history: Patient seen and examined. Medical records and medication list reviewed. No acute event overnight noted by the RN. Patient plan to place on 55% FiO2 today, using BiPAP at night Discussed plan of care at bedside with patient, critical care attending and adoption social worker/CM. Objective - Constitutional Vitals: Vital Signs - 12hr 09/23/19 09/23/19 09/23/19 02:00 04:18 05:11 Temperature 98.4 F Pulse Rate 93 H 93 H Pulse Rate [ Anterior Bilateral Throughout] Respiratory 26 H Rate Respiratory Rate [Anterior Bilateral Throughout] Blood Pressure 114/57 O2 Sat by Pulse 93 92 Oximetry 09/23/19 09/23/19 09/23/19 06:06 08:24 08:39 Temperature Pulse Rate 96 H Pulse Rate [ Anterior Bilateral Throughout] Respiratory 22 Rate Respiratory Rate [Anterior Bilateral Throughout] Blood Pressure 122/62 O2 Sat by Pulse 94 86 Oximetry 09/23/19 09/23/19 09/23/19 08:51 10:00 10:30 Temperature Pulse Rate 92 H Pulse Rate [ 95 H Anterior Bilateral Throughout] Respiratory 20 Rate Respiratory 20 Rate [Anterior Bilateral Throughout] Blood Pressure O2 Sat by Pulse 96 Oximetry 09/23/19 12:33 Temperature Pulse Rate 98 H Pulse Rate [ Anterior Bilateral Throughout] Respiratory Rate Respiratory Rate [Anterior Bilateral Throughout] Blood Pressure 136/74 O2 Sat by Pulse 84 Oximetry - Labs CBC & Chem 7: 09/21/19 04:58 09/21/19 04:58 Labs: Abnormal lab results 09/22/19 Range/Units 22:15 POC Glucose 114 H (70-105)
--- NOTE | 2019-09-23 15:45 | Progress Note ---
Assessment and Plan Imp: 1. ELLY/OHS/Morbid obesity 2. Acute respiratory failure, hypoxia 3. A/C respiratory failure, hypercapnea 2/2 OHS 4. Acute CHF 5. R/o COPD Rec: 1. Cont. Lasix 2. Diamox IV x 1 given 09/22/19; f/u BMP in AM 3. Wean HFNC to keep sats 88-94% 4. BIPAP QHS 5. Weight loss 6. Agree w/ NIV at d/c 7. Complex decision-making Plan of care reviewed with patient, she understands/agrees Subjective Date of service: 09/23/19 Principal diagnosis: A/C respiratory failure Interval history: No events. On HFNC. Feeling a little better. No new complaints. Active Medications Acetaminophen (Tylenol) 650 mg PO Q4H PRN PRN Reason: Pain MILD(1-3)/Fever >100.5/DOMINIQUE Albuterol (Proventil) 2.5 mg IH Q4H PRN PRN Reason: Shortness Of Breath/ Wheezing Albuterol/Ipratropium (Duoneb *Not For Prn Use*) 1 ampul IH TIDRT [facility] Last Admin: 09/23/19 15:10 Dose: 1 ampul Documented by: Arformoterol Tartrate (Brovana Nebu) 15 mcg IH Q12HRT [facility] [place] Last Admin: 09/23/19 08:21 Dose: 15 mcg Documented by: Budesonide (Pulmicort) 0.5 mg IH Q12HRT [facility] [place] Last Admin: 09/23/19 08:21 Dose: 0.5 mg Documented by: Enoxaparin Sodium (Enoxaparin) 40 mg SUB-Q QDAY@2200 [facility] [place] Last Admin: 09/22/19 21:19 Dose: 40 mg Documented by: Famotidine (Pepcid) 20 mg PO BID [facility] Last Admin: 09/23/19 09:32 Dose: 20 mg Documented by: Furosemide (Lasix) 40 mg IV 0600,1800 [facility] Last Admin: 09/23/19 06:06 Dose: 40 mg Documented by: Metoclopramide HCl (Reglan) 10 mg IV Q6H PRN PRN Reason: Nausea And Vomiting Ondansetron HCl (Zofran) 4 mg IV Q8H PRN PRN Reason: Nausea And Vomiting Oxycodone/Acetaminophen (Percocet 5/325) 1 tab PO Q6H PRN PRN Reason: Pain, Moderate (4-6) Last Admin: 09/23/19 06:06 Dose: 1 tab Documented by: Sodium Chloride (Sodium Chloride Flush Syringe 10 Ml) 10 ml IV BID [facility] Last Admin: 09/23/19 09:32 Dose: 10 ml Documented by: Sodium Chloride (Sodium Chloride Flush Syringe 10 Ml) 10 ml IV PRN PRN PRN Reason: LINE FLUSH Last Admin: 09/23/19 06:09 Dose: 10 ml Documented by: Objective Vital Signs - 12hr 09/23/19 09/23/19 09/23/19 04:18 05:11 06:06 Temperature 98.4 F Pulse Rate 93 H 93 H Pulse Rate [ Anterior Bilateral Throughout] Respiratory 26 H 22 Rate Respiratory Rate [Anterior Bilateral Throughout] Blood Pressure 114/57 O2 Sat by Pulse 92 Oximetry 09/23/19 09/23/19 09/23/19 08:24 08:39 08:51 Temperature Pulse Rate 96 H Pulse Rate [ 95 H Anterior Bilateral Throughout] Respiratory Rate Respiratory 20 Rate [Anterior Bilateral Throughout] Blood Pressure 122/62 O2 Sat by Pulse 94 86 Oximetry 09/23/19 09/23/19 09/23/19 10:00 10:30 12:33 Temperature Pulse Rate 92 H 98 H Pulse Rate [ Anterior Bilateral Throughout] Respiratory 20 Rate Respiratory Rate [Anterior Bilateral Throughout] Blood Pressure 136/74 O2 Sat by Pulse 96 84 Oximetry 09/23/19 15:09 Temperature Pulse Rate Pulse Rate [ 94 H Anterior Bilateral Throughout] Respiratory Rate Respiratory 18 Rate [Anterior Bilateral Throughout] Blood Pressure O2 Sat by Pulse Oximetry Constitutional: no acute distress, other (morbidly obese) Eyes: non-icteric Neck: other (extremely large in circumference) Effort: normal Ascultation: Bilateral: diminished breath sounds (secondary to body habitus) Percussion: Bilateral: not dull Tactile fremitus: Bilateral: diminished Cardiovascular: regular rate and rhythm Gastrointestinal: normoactive bowel sounds, non-tender, non-distended, other (morbidly obese) Integumentary: normal Extremities: no cyanosis, pink and warm Neurologic: normal mental status, non-focal exam, pupils equal and round Psychiatric: mood appropriate, affect normal CBC and BMP: 09/21/19 04:58 09/21/19 04:58 ABG, PT/INR, D-dimer: ABG POC ABG pH 7.212 (7.35-7.45) L 09/14/19 13:58 POC ABG pO2 55 (80-105) L 09/14/19 13:58 PT/INR, D-dimer PT 13.3 Sec. (12.2-14.9) 09/14/19 12:43 INR 1.02 (0.87-1.13) 09/14/19 12:43 Abnormal lab findings: Abnormal Labs 09/14/19 09/14/19 09/14/19 12:43 12:43 13:44 WBC 11.4 H Hgb MCH 24 L MCHC 29 L RDW 18.2 H Lymph % (Auto) Eos % (Auto) Lymph # Eos # Seg Neutrophils % Seg Neuts % (Manual) 84.0 H Lymphocytes % (Manual) 11.0 L Nucleated RBC % 3.0 H Seg Neutrophils # Seg Neutrophils # Man 9.6 H Lymphocytes # (Manual) POC ABG pH 7.207 L POC ABG pO2 59 L Sodium Potassium Chloride 88.5 L Carbon Dioxide 44 H* Creatinine 0.4 L Glucose POC Glucose Total Protein 9.0 H Albumin 3.4 L 09/14/19 09/15/19 09/15/19 13:58 07:35 07:35 WBC 12.0 H Hgb 9.7 L MCH 24 L MCHC 29 L RDW 18.0 H Lymph % (Auto) Eos % (Auto) Lymph # Eos # Seg Neutrophils % Seg Neuts % (Manual) 91.0 H Lymphocytes % (Manual) 5.0 L Nucleated RBC % 2.0 H Seg Neutrophils # Seg Neutrophils # Man 10.9 H Lymphocytes # (Manual) 0.6 L POC ABG pH 7.212 L POC ABG pO2 55 L Sodium 146 H Potassium 5.2 H Chloride 88.7 L Carbon Dioxide 49 H* Creatinine 0.4 L Glucose 101 H POC Glucose Total Protein Albumin 3.3 L 09/16/19 09/16/19 09/16/19 05:42 05:42 12:55 WBC Hgb MCH 25 L MCHC RDW 18.0 H Lymph % (Auto) 6.2 L Eos % (Auto) Lymph # 0.6 L Eos # Seg Neutrophils % 89.0 H Seg Neuts % (Manual) Lymphocytes % (Manual) Nucleated RBC % Seg Neutrophils # 9.2 H Seg Neutrophils # Man Lymphocytes # (Manual) POC ABG pH POC ABG pO2 Sodium Potassium 5.6 H Chloride 86.8 L Carbon Dioxide 50 H* Creatinine 0.4 L Glucose 117 H POC Glucose 146 H Total Protein 8.4 H Albumin 3.1 L 09/16/19 09/17/19 09/18/19 18:07 06:52 05:45 WBC Hgb MCH MCHC RDW Lymph % (Auto) Eos % (Auto) Lymph # Eos # Seg Neutrophils % Seg Neuts % (Manual) Lymphocytes % (Manual) Nucleated RBC % Seg Neutrophils # Seg Neutrophils # Man Lymphocytes # (Manual) POC ABG pH POC ABG pO2 Sodium Potassium 5.1 H D Chloride 82.4 L 85.9 L Carbon Dioxide 52 H* 44 H* D Creatinine 0.5 L 0.4 L Glucose POC Glucose 135 H Total Protein Albumin 09/21/19 09/21/19 09/22/19 04:58 04:58 22:15 WBC Hgb MCH 24 L MCHC RDW 17.9 H Lymph % (Auto) Eos % (Auto) 4.6 H Lymph # Eos # 0.5 H Seg Neutrophils % 71.1 H Seg Neuts % (Manual) Lymphocytes % (Manual) Nucleated RBC % Seg Neutrophils # 7.8 H Seg Neutrophils # Man Lymphocytes # (Manual) POC ABG pH POC ABG pO2 Sodium Potassium Chloride 85.7 L Carbon Dioxide 50 H* Creatinine 0.5 L Glucose POC Glucose 114 H Total Protein Albumin Chest x-ray: report reviewed, image reviewed
[2019-09-23] MEDS: ENOXAPARIN 40 MG/0.4 ML INJ SUB-Q SCH (21:44)
[2019-09-24] MEDS: oxyCODONE /ACETAMINOPHEN 5-325MG TAB PO PRN ×2 (06:43→23:35)
[2019-09-24] MEDS: FUROSEMIDE 40 MG/4 ML INJ IV SCH ×2 (06:43→17:33)
[2019-09-24] MEDS: ARFORMOTEROL 15 MCG/2 ML NEBU IH SCH ×2 (07:59→21:41)
[2019-09-24] MEDS: BUDESONIDE 0.5 MG/2 ML NEBU IH SCH ×2 (07:59→21:41)
[2019-09-24] MEDS: IPRATROPIUM/ALBUTEROL SULFATE 3 ML AMPUL.NEB IH SCH ×3 (08:00→21:41)
[2019-09-24 08:21] LABS: BUN/Creatinine Ratio 25; Blood Urea Nitrogen 10 mg/dL (7-17); Calcium 9.1 mg/dL (8.4-10.2); Hemolysis Index 14
[2019-09-24] MEDS: FAMOTIDINE 20 MG TAB PO SCH ×2 (10:09→22:55)
--- NOTE | 2019-09-24 11:52 | Progress Note ---
Assessment and Plan 39 y/o morbidly obese female with acute on chronic respiratory failure ELLY and OHS 1. Must wear PPV anytime she is sleeping, discussed again with patient. 2. Continue lasix therapy 3. PT/Consult 4. Nutrition education 5. Patient would likely benefit from LTACH as she has had long standing hypoxemia and will be difficult wean from HFNC given her morbid, morbid obesity. CM is working on this. Hopeful this can happen Subjective Date of service: 09/24/19 Principal diagnosis: A/C respiratory failure Interval history: No acute events. Remains on HFNC at 30 and 70%. Sats are stable. Objective Vital Signs - 12hr 09/24/19 09/24/19 09/24/19 00:05 00:10 00:15 Temperature 98.2 F Pulse Rate 91 H 96 H Pulse Rate [ Anterior Bilateral Throughout] Respiratory 16 22 Rate Respiratory Rate [Anterior Bilateral Throughout] Blood Pressure Blood Pressure 121/46 [Right] O2 Sat by Pulse 94 96 93 Oximetry 09/24/19 09/24/19 09/24/19 03:17 04:00 06:43 Temperature 98.2 F Pulse Rate 96 H Pulse Rate [ Anterior Bilateral Throughout] Respiratory 21 22 Rate Respiratory Rate [Anterior Bilateral Throughout] Blood Pressure 138/72 Blood Pressure [Right] O2 Sat by Pulse 87 Oximetry 09/24/19 09/24/19 08:00 08:48 Temperature 99.2 F Pulse Rate 92 H Pulse Rate [ 95 H Anterior Bilateral Throughout] Respiratory 18 Rate Respiratory 20 Rate [Anterior Bilateral Throughout] Blood Pressure 127/69 Blood Pressure [Right] O2 Sat by Pulse 94 93 Oximetry Constitutional: no acute distress, other (morbidly obese) Eyes: non-icteric Neck: other (extremely large in circumference) Effort: normal Ascultation: Bilateral: diminished breath sounds (secondary to body habitus) Percussion: Bilateral: not dull Tactile fremitus: Bilateral: diminished Cardiovascular: regular rate and rhythm Gastrointestinal: normoactive bowel sounds, non-tender, non-distended, other (morbidly obese) Integumentary: normal Extremities: no cyanosis, pink and warm Neurologic: normal mental status, non-focal exam, pupils equal and round Psychiatric: mood appropriate, affect normal CBC and BMP: 09/21/19 04:58 09/24/19 07:43 ABG, PT/INR, D-dimer: ABG POC ABG pH 7.212 (7.35-7.45) L 09/14/19 13:58 POC ABG pO2 55 (80-105) L 09/14/19 13:58 PT/INR, D-dimer PT 13.3 Sec. (12.2-14.9) 09/14/19 12:43 INR 1.02 (0.87-1.13) 09/14/19 12:43 Abnormal lab findings: Abnormal Labs 09/14/19 09/14/19 09/14/19 12:43 12:43 13:44 WBC 11.4 H Hgb MCH 24 L MCHC 29 L RDW 18.2 H Lymph % (Auto) Eos % (Auto) Lymph # Eos # Seg Neutrophils % Seg Neuts % (Manual) 84.0 H Lymphocytes % (Manual) 11.0 L Nucleated RBC % 3.0 H Seg Neutrophils # Seg Neutrophils # Man 9.6 H Lymphocytes # (Manual) POC ABG pH 7.207 L POC ABG pO2 59 L Sodium Potassium Chloride 88.5 L Carbon Dioxide 44 H* Creatinine 0.4 L Glucose POC Glucose Total Protein 9.0 H Albumin 3.4 L 09/14/19 09/15/19 09/15/19 13:58 07:35 07:35 WBC 12.0 H Hgb 9.7 L MCH 24 L MCHC 29 L RDW 18.0 H Lymph % (Auto) Eos % (Auto) Lymph # Eos # Seg Neutrophils % Seg Neuts % (Manual) 91.0 H Lymphocytes % (Manual) 5.0 L Nucleated RBC % 2.0 H Seg Neutrophils # Seg Neutrophils # Man 10.9 H Lymphocytes # (Manual) 0.6 L POC ABG pH 7.212 L POC ABG pO2 55 L Sodium 146 H Potassium 5.2 H Chloride 88.7 L Carbon Dioxide 49 H* Creatinine 0.4 L Glucose 101 H POC Glucose Total Protein Albumin 3.3 L 09/16/19 09/16/19 09/16/19 05:42 05:42 12:55 WBC Hgb MCH 25 L MCHC RDW 18.0 H Lymph % (Auto) 6.2 L Eos % (Auto) Lymph # 0.6 L Eos # Seg Neutrophils % 89.0 H Seg Neuts % (Manual) Lymphocytes % (Manual) Nucleated RBC % Seg Neutrophils # 9.2 H Seg Neutrophils # Man Lymphocytes # (Manual) POC ABG pH POC ABG pO2 Sodium Potassium 5.6 H Chloride 86.8 L Carbon Dioxide 50 H* Creatinine 0.4 L Glucose 117 H POC Glucose 146 H Total Protein 8.4 H Albumin 3.1 L 09/16/19 09/17/19 09/18/19 18:07 06:52 05:45 WBC Hgb MCH MCHC RDW Lymph % (Auto) Eos % (Auto) Lymph # Eos # Seg Neutrophils % Seg Neuts % (Manual) Lymphocytes % (Manual) Nucleated RBC % Seg Neutrophils # Seg Neutrophils # Man Lymphocytes # (Manual) POC ABG pH POC ABG pO2 Sodium Potassium 5.1 H D Chloride 82.4 L 85.9 L Carbon Dioxide 52 H* 44 H* D Creatinine 0.5 L 0.4 L Glucose POC Glucose 135 H Total Protein Albumin 09/21/19 09/21/19 09/22/19 04:58 04:58 22:15 WBC Hgb MCH 24 L MCHC RDW 17.9 H Lymph % (Auto) Eos % (Auto) 4.6 H Lymph # Eos # 0.5 H Seg Neutrophils % 71.1 H Seg Neuts % (Manual) Lymphocytes % (Manual) Nucleated RBC % Seg Neutrophils # 7.8 H Seg Neutrophils # Man Lymphocytes # (Manual) POC ABG pH POC ABG pO2 Sodium Potassium Chloride 85.7 L Carbon Dioxide 50 H* Creatinine 0.5 L Glucose POC Glucose 114 H Total Protein Albumin 09/24/19 07:43 WBC Hgb MCH MCHC RDW Lymph % (Auto) Eos % (Auto) Lymph # Eos # Seg Neutrophils % Seg Neuts % (Manual) Lymphocytes % (Manual) Nucleated RBC % Seg Neutrophils # Seg Neutrophils # Man Lymphocytes # (Manual) POC ABG pH POC ABG pO2 Sodium Potassium Chloride 87.7 L Carbon Dioxide 39 H D Creatinine 0.4 L Glucose POC Glucose Total Protein Albumin
--- NOTE | 2019-09-24 12:36 | Event Note ---
Date: 09/24/19 Patient requires volume ventilation and all other alternative therapies have been considered and ruled out due to the severity of the the disease sate and the life-threatening condition including CO2 retention. Due to increased probability of acute exacerbation, patient requires Mouth-Piece Ventilation to be used during the day as needed, in addition to QHS usage with face mask.
--- NOTE | 2019-09-24 15:49 | Progress Note ---
Assessment and Plan /Acute respiratory failure with hypoxia and hypercarbia Patient on Bipap , oxygen titrate O2 sats to more than 90% Sec to obesity hypoventilation and obstructive sleep apnea cont Nebulizers, s/p IV steroids IV antibiotics for 5 days BiPAP as needed, PPV every time she sleeps , s/p Diamox by pulmonary will need Trilogy machine at discharge if o2 requirement decreases - CM working on LTAC placement /Obesity hypoventilation syndrome; Supplemental Oxygen, nebulizers, supportive care, wt reduction diet /Hyperkalemia:Resolved /Obstructive sleep apnea: CPAP/BiPAP at night, and daytime as needed. Needs outpatient sleep study on discharge / Morbid obesity BMI 73.2. Advised weight reduction when medically stable with diet and exercise as appropriate Recommend outpatient bariatric surgical evaluation /Hyperkalemia - give one dose of kayexalate /DVT prophylaxis. Lovenox GI prophylaxis; Pepcid. --Full code Status Monitor clinically and adjust the management as needed Discharge planning. Trilogy at discharge, evaluation for CPAP BiPAP inpt vs outpatient Disposition; LTAC - pending authorization Brief History 39-year-old morbidly obese female patient was admitted through emergency room with worsening shortness of breath cough productive and wheezing Patient was admitted, symptomatically managed on oxygen BiPAP nebulizers, IV antibiotics, IV steroids and supportive care Patient was evaluated by pulmonary, medications optimized, Advised PPV Every time she sleeps and at nights, and s/p Diamox. Still on high O2 - plan for LTAC Hospitalist Physical General appearance: Present: mild distress, well-nourished, obese (morbidly obese) - EENT Eyes: Present: PERRL, EOM intact - Neck Neck: Present: supple, normal ROM - Respiratory Respiratory effort: labored Respiratory: bilateral: diminished, rhonchi, negative: rales, wheezing - Cardiovascular Rhythm: regular Heart Sounds: Present: S1 & S2 - Extremities Extremities: no ischemia, No edema - Abdominal General gastrointestinal: soft, non-tender, non-distended, normal bowel sounds - Integumentary Integumentary: Present: clear, warm - Psychiatric Psychiatric: appropriate mood/affect, cooperative - Neurologic Neurologic: CNII-XII intact, moves all extremities Subjective Date of service: 09/24/19 Principal diagnosis: A/C respiratory failure Interval history: Patient seen and examined. Medical records and medication list reviewed. No acute event overnight noted by the RN. Patient back on 70%Fio2 Discussed plan of care at bedside with patient, critical care attending and hospital social worker/CM. Objective - Constitutional Vitals: Vital Signs - 12hr 09/24/19 09/24/19 09/24/19 04:00 06:43 08:00 Temperature 98.2 F Pulse Rate Pulse Rate [ 95 H Anterior Bilateral Throughout] Pulse Rate [ Apical] Pulse Rate [ Left Dorsalis Pedis] Pulse Rate [ Left Radial] Pulse Rate [ Posterior Bilateral Throughout] Pulse Rate [ Right Dorsalis Pedis] Pulse Rate [ Right Radial] Respiratory 22 Rate Respiratory 20 Rate [Anterior Bilateral Throughout] Respiratory Rate [Posterior Bilateral Throughout] Blood Pressure O2 Sat by Pulse 94 Oximetry 09/24/19 09/24/19 09/24/19 08:48 10:00 12:00 Temperature 99.2 F Pulse Rate 92 H 89 96 H Pulse Rate [ Anterior Bilateral Throughout] Pulse Rate [ 95 H Apical] Pulse Rate [ 95 H Left Dorsalis Pedis] Pulse Rate [ 95 H Left Radial] Pulse Rate [ Posterior Bilateral Throughout] Pulse Rate [ 95 H Right Dorsalis Pedis] Pulse Rate [ 95 H Right Radial] Respiratory 18 26 H Rate Respiratory Rate [Anterior Bilateral Throughout] Respiratory Rate [Posterior Bilateral Throughout] Blood Pressure 127/69 O2 Sat by Pulse 93 96 Oximetry 09/24/19 09/24/19 13:23 13:24 Temperature Pulse Rate Pulse Rate [ 98 H Anterior Bilateral Throughout] Pulse Rate [ Apical] Pulse Rate [ Left Dorsalis Pedis] Pulse Rate [ Left Radial] Pulse Rate [ 85 Posterior Bilateral Throughout] Pulse Rate [ Right Dorsalis Pedis] Pulse Rate [ Right Radial] Respiratory Rate Respiratory 20 Rate [Anterior Bilateral Throughout] Respiratory 20 Rate [Posterior Bilateral Throughout] Blood Pressure O2 Sat by Pulse 94 Oximetry - Labs CBC & Chem 7: 09/21/19 04:58 09/24/19 07:43 Labs: Abnormal lab results 09/24/19 Range/Units 07:43 Chloride 87.7 L (98-107) mmol/L Carbon Dioxide 39 H D (22-30) mmol/L Creatinine 0.4 L (0.7-1.2) mg/dL
[2019-09-24] MEDS: ACETAMINOPHEN 325 MG TAB PO PRN (20:07)
[2019-09-24] MEDS: ENOXAPARIN 40 MG/0.4 ML INJ SUB-Q SCH (22:55)
[2019-09-25] MEDS: FUROSEMIDE 40 MG/4 ML INJ IV SCH ×2 (06:39→17:33)
[2019-09-25] MEDS: ARFORMOTEROL 15 MCG/2 ML NEBU IH SCH ×2 (09:42→21:46)
[2019-09-25] MEDS: BUDESONIDE 0.5 MG/2 ML NEBU IH SCH ×2 (09:42→21:46)
[2019-09-25] MEDS: IPRATROPIUM/ALBUTEROL SULFATE 3 ML AMPUL.NEB IH SCH ×3 (09:43→21:46)
[2019-09-25] MEDS: FAMOTIDINE 20 MG TAB PO SCH ×2 (09:45→21:42)
--- NOTE | 2019-09-25 11:26 | Progress Note ---
Assessment and Plan 39 y/o morbidly obese female with acute on chronic respiratory failure ELLY and OHS 1. Must wear PPV anytime she is sleeping, discussed again with patient. 2. Continue lasix therapy 3. PT/Consult 4. Nutrition education 5. Patient would likely benefit from LTACH as she has had long standing hypoxemia and will be difficult wean from HFNC given her morbid, morbid obesity. CM is working on this. She has been denied by several LTACHs secondary to funding Subjective Date of service: 09/25/19 Principal diagnosis: A/C respiratory failure Interval history: No acute events. Still on HFNC Objective Vital Signs - 12hr 09/25/19 09/25/19 09/25/19 00:00 00:50 04:12 Temperature 98.1 F Pulse Rate 100 H 95 H 100 H Pulse Rate [ Anterior Bilateral Throughout] Respiratory 30 H 20 Rate Respiratory Rate [Anterior Bilateral Throughout] Blood Pressure 134/81 O2 Sat by Pulse 97 90 Oximetry 09/25/19 09/25/19 09/25/19 08:00 08:47 09:00 Temperature 98.2 F Pulse Rate 94 H Pulse Rate [ 92 H Anterior Bilateral Throughout] Respiratory 18 Rate Respiratory 20 Rate [Anterior Bilateral Throughout] Blood Pressure 146/80 O2 Sat by Pulse 96 91 94 Oximetry Constitutional: no acute distress, other (morbidly obese) Eyes: non-icteric Neck: other (extremely large in circumference) Effort: normal Ascultation: Bilateral: diminished breath sounds (secondary to body habitus) Percussion: Bilateral: not dull Tactile fremitus: Bilateral: diminished Cardiovascular: regular rate and rhythm Gastrointestinal: normoactive bowel sounds, non-tender, non-distended, other (morbidly obese) Integumentary: normal Extremities: no cyanosis, pink and warm Neurologic: normal mental status, non-focal exam, pupils equal and round Psychiatric: mood appropriate, affect normal CBC and BMP: 09/21/19 04:58 09/24/19 07:43 ABG, PT/INR, D-dimer: ABG POC ABG pH 7.212 (7.35-7.45) L 09/14/19 13:58 POC ABG pO2 55 (80-105) L 09/14/19 13:58 PT/INR, D-dimer PT 13.3 Sec. (12.2-14.9) 09/14/19 12:43 INR 1.02 (0.87-1.13) 09/14/19 12:43 Abnormal lab findings: Abnormal Labs 09/14/19 09/14/19 09/14/19 12:43 12:43 13:44 WBC 11.4 H Hgb MCH 24 L MCHC 29 L RDW 18.2 H Lymph % (Auto) Eos % (Auto) Lymph # Eos # Seg Neutrophils % Seg Neuts % (Manual) 84.0 H Lymphocytes % (Manual) 11.0 L Nucleated RBC % 3.0 H Seg Neutrophils # Seg Neutrophils # Man 9.6 H Lymphocytes # (Manual) POC ABG pH 7.207 L POC ABG pO2 59 L Sodium Potassium Chloride 88.5 L Carbon Dioxide 44 H* Creatinine 0.4 L Glucose POC Glucose Total Protein 9.0 H Albumin 3.4 L 09/14/19 09/15/19 09/15/19 13:58 07:35 07:35 WBC 12.0 H Hgb 9.7 L MCH 24 L MCHC 29 L RDW 18.0 H Lymph % (Auto) Eos % (Auto) Lymph # Eos # Seg Neutrophils % Seg Neuts % (Manual) 91.0 H Lymphocytes % (Manual) 5.0 L Nucleated RBC % 2.0 H Seg Neutrophils # Seg Neutrophils # Man 10.9 H Lymphocytes # (Manual) 0.6 L POC ABG pH 7.212 L POC ABG pO2 55 L Sodium 146 H Potassium 5.2 H Chloride 88.7 L Carbon Dioxide 49 H* Creatinine 0.4 L Glucose 101 H POC Glucose Total Protein Albumin 3.3 L 09/16/19 09/16/19 09/16/19 05:42 05:42 12:55 WBC Hgb MCH 25 L MCHC RDW 18.0 H Lymph % (Auto) 6.2 L Eos % (Auto) Lymph # 0.6 L Eos # Seg Neutrophils % 89.0 H Seg Neuts % (Manual) Lymphocytes % (Manual) Nucleated RBC % Seg Neutrophils # 9.2 H Seg Neutrophils # Man Lymphocytes # (Manual) POC ABG pH POC ABG pO2 Sodium Potassium 5.6 H Chloride 86.8 L Carbon Dioxide 50 H* Creatinine 0.4 L Glucose 117 H POC Glucose 146 H Total Protein 8.4 H Albumin 3.1 L 09/16/19 09/17/19 09/18/19 18:07 06:52 05:45 WBC Hgb MCH MCHC RDW Lymph % (Auto) Eos % (Auto) Lymph # Eos # Seg Neutrophils % Seg Neuts % (Manual) Lymphocytes % (Manual) Nucleated RBC % Seg Neutrophils # Seg Neutrophils # Man Lymphocytes # (Manual) POC ABG pH POC ABG pO2 Sodium Potassium 5.1 H D Chloride 82.4 L 85.9 L Carbon Dioxide 52 H* 44 H* D Creatinine 0.5 L 0.4 L Glucose POC Glucose 135 H Total Protein Albumin 09/21/19 09/21/19 09/22/19 04:58 04:58 22:15 WBC Hgb MCH 24 L MCHC RDW 17.9 H Lymph % (Auto) Eos % (Auto) 4.6 H Lymph # Eos # 0.5 H Seg Neutrophils % 71.1 H Seg Neuts % (Manual) Lymphocytes % (Manual) Nucleated RBC % Seg Neutrophils # 7.8 H Seg Neutrophils # Man Lymphocytes # (Manual) POC ABG pH POC ABG pO2 Sodium Potassium Chloride 85.7 L Carbon Dioxide 50 H* Creatinine 0.5 L Glucose POC Glucose 114 H Total Protein Albumin 09/24/19 07:43 WBC Hgb MCH MCHC RDW Lymph % (Auto) Eos % (Auto) Lymph # Eos # Seg Neutrophils % Seg Neuts % (Manual) Lymphocytes % (Manual) Nucleated RBC % Seg Neutrophils # Seg Neutrophils # Man Lymphocytes # (Manual) POC ABG pH POC ABG pO2 Sodium Potassium Chloride 87.7 L Carbon Dioxide 39 H D Creatinine 0.4 L Glucose POC Glucose Total Protein Albumin
--- NOTE | 2019-09-25 15:54 | Progress Note ---
Assessment and Plan Assessment and plan: Patient is a 39 yo woman with a history of extreme obesity, BMI 82.9, hypertension, chronic hypoxic respiratory failure on 4 liters of O2 at home due to OHS who presented to [facility] ED on 09/14/19 with SOB Acute on chronic combined respiratory failure, still on BIPAP Extreme Obesity, BMI 82.9: Dietary recommendations done, Brother (whom she lives with) is enabler it appears Function quadriplegia: PT ELLY/OHS: bipap Hypokalemia, replete, stable DVT ppx sq heparin History Interval history: Patient was seen and examined. Follow-up on current diagnosis of Respiratory failure. No overnight events reported to me. Patient denies any chest pain, nausea/vomiting or severe headaches. Imaging, nursing note, chart, labs and old chart reviewed. Discussed with patient. Hospitalist Physical - Physical exam Narrative exam: Gen: MO bmi 82.9, mild increase accessory muscle usage Awake, Alert, Orientated HEENT: NCAT, EOMI, PERRL, OP Clear Neck: supple, no adenopathy, no thyromegaly, no JVD CVS/Heart: RRR, normal S1S2, pulses present bilaterally Chest/Lungs: diminished bs bilateral, Symmetrical chest expansion, good air entry bilaterally GI/Abdomen: soft, NTND, good bowel sounds, no guarding or rebound /Bladder: no suprapubic tenderness, no CVA or paraspinal tenderness Extermity/Skin: no c/c/e, no obvious rash MSK: FROM x 4 Neuro: CN 2-12 grossly intact, no new focal deficits Psych: calm - Constitutional Vitals: Temp Pulse Resp BP Pulse Ox 98.2 F 92 H 20 146/80 92 09/25/19 08:47 09/25/19 14:00 09/25/19 14:00 09/25/19 08:47 09/25/19 14:00 General appearance: Present: well-nourished, obese (morbidly obese). Absent: mild distress Results - Labs CBC & Chem 7: 09/21/19 04:58 09/24/19 07:43 Labs: Laboratory Last Values WBC 11.0 K/mm3 (4.5-11.0) 09/21/19 04:58 RBC 4.60 M/mm3 (3.65-5.03) 09/21/19 04:58 Hgb 11.0 gm/dl (10.1-14.3) 09/21/19 04:58 Hct 37.0 % (30.3-42.9) 09/21/19 04:58 MCV 80 fl (79-97) 09/21/19 04:58 MCH 24 pg (28-32) L 09/21/19 04:58 MCHC 30 % (30-34) 09/21/19 04:58 RDW 17.9 % (13.2-15.2) H 09/21/19 04:58 Plt Count 167 K/mm3 (140-440) 09/21/19 04:58 Lymph % (Auto) 16.9 % (13.4-35.0) 09/21/19 04:58 [place] % (Auto) 6.9 % (0.0-7.3) 09/21/19 04:58 Eos % (Auto) 4.6 % (0.0-4.3) H 09/21/19 04:58 Baso % (Auto) 0.5 % (0.0-1.8) 09/21/19 04:58 Lymph # 1.9 K/mm3 (1.2-5.4) 09/21/19 04:58 [place] # 0.8 K/mm3 (0.0-0.8) 09/21/19 04:58 Eos # 0.5 K/mm3 (0.0-0.4) H 09/21/19 04:58 Baso # 0.1 K/mm3 (0.0-0.1) 09/21/19 04:58 Add Manual Diff Complete 09/15/19 07:35 Total Counted 100 09/15/19 07:35 Seg Neutrophils % 71.1 % (40.0-70.0) H 09/21/19 04:58 Seg Neuts % (Manual) 91.0 % (40.0-70.0) H 09/15/19 07:35 Band Neutrophils % 0 % 09/15/19 07:35 Lymphocytes % (Manual) 5.0 % (13.4-35.0) L 09/15/19 07:35 Reactive Lymphs % (Man) 0 % 09/15/19 07:35 Monocytes % (Manual) 2.0 % (0.0-7.3) 09/15/19 07:35 Eosinophils % (Manual) 0 % (0.0-4.3) 09/15/19 07:35 Basophils % (Manual) 0 % (0.0-1.8) 09/15/19 07:35 Metamyelocytes % 2.0 % 09/15/19 07:35 Myelocytes % 0 % 09/15/19 07:35 Promyelocytes % 0 % 09/15/19 07:35 Blast Cells % 0 % 09/15/19 07:35 Nucleated RBC % 2.0 % (0.0-0.9) H 09/15/19 07:35 Seg Neutrophils # 7.8 K/mm3 (1.8-7.7) H 09/21/19 04:58 Seg Neutrophils # Man 10.9 K/mm3 (1.8-7.7) H 09/15/19 07:35 Band Neutrophils # 0.0 K/mm3 09/15/19 07:35 Lymphocytes # (Manual) 0.6 K/mm3 (1.2-5.4) L 09/15/19 07:35 Abs React Lymphs (Man) 0.0 K/mm3 09/15/19 07:35 Monocytes # (Manual) 0.2 K/mm3 (0.0-0.8) 09/15/19 07:35 Eosinophils # (Manual) 0.0 K/mm3 (0.0-0.4) 09/15/19 07:35 Basophils # (Manual) 0.0 K/mm3 (0.0-0.1) 09/15/19 07:35 Metamyelocytes # 0.2 K/mm3 09/15/19 07:35 Myelocytes # 0.0 K/mm3 09/15/19 07:35 Promyelocytes # 0.0 K/mm3 09/15/19 07:35 Blast Cells # 0.0 K/mm3 09/15/19 07:35 WBC Morphology Not Reportable 09/15/19 07:35 Hypersegmented Neuts Not Reportable 09/15/19 07:35 Hyposegmented Neuts Not Reportable 09/15/19 07:35 Hypogranular Neuts Not Reportable 09/15/19 07:35 Smudge Cells Not Reportable 09/15/19 07:35 Toxic Granulation Not Reportable 09/15/19 07:35 Toxic Vacuolation Not Reportable 09/15/19 07:35 Dohle Bodies Not Reportable 09/15/19 07:35 [place]uet Anomaly Not Reportable 09/15/19 07:35 Antione Rods Not Reportable 09/15/19 07:35 Platelet Estimate Consistent w auto 09/15/19 07:35 Clumped Platelets Not Reportable 09/15/19 07:35 Plt Clumps, EDTA Not Reportable 09/15/19 07:35 Large Platelets Rare 09/15/19 07:35 Giant Platelets Not Reportable 09/15/19 07:35 Platelet Satelliting Not Reportable 09/15/19 07:35 Plt Morphology Comment Not Reportable 09/15/19 07:35 RBC Morphology Not Reportable 09/15/19 07:35 Dimorphic RBCs Not Reportable 09/15/19 07:35 Polychromasia Not Reportable 09/15/19 07:35 Hypochromasia 1+ 09/15/19 07:35 Poikilocytosis Not Reportable 09/15/19 07:35 Anisocytosis Few 09/15/19 07:35 Microcytosis Not Reportable 09/15/19 07:35 Macrocytosis Not Reportable 09/15/19 07:35 Spherocytes Not Reportable 09/15/19 07:35 Pappenheimer Bodies Not Reportable 09/15/19 07:35 Sickle Cells Not Reportable 09/15/19 07:35 Target Cells Not Reportable 09/15/19 07:35 Tear Drop Cells Not Reportable 09/15/19 07:35 Ovalocytes Not Reportable 09/15/19 07:35 Helmet Cells Not Reportable 09/15/19 07:35 [place] Bodies Not Reportable 09/15/19 07:35 [place] Rings Not Reportable 09/15/19 07:35 [place] Cells Not Reportable 09/15/19 07:35 Bite Cells Not Reportable 09/15/19 07:35 Crenated Cell Not Reportable 09/15/19 07:35 Elliptocytes Not Reportable 09/15/19 07:35 Acanthocytes (Spur) Not Reportable 09/15/19 07:35 Rouleaux Not Reportable 09/15/19 07:35 Hemoglobin C Crystals Not Reportable 09/15/19 07:35 Schistocytes Not Reportable 09/15/19 07:35 Malaria parasites Not Reportable 09/15/19 07:35 [place] Bodies Not Reportable 09/15/19 07:35 Hem Pathologist Commnt No 09/15/19 07:35 PT 13.3 Sec. (12.2-14.9) 09/14/19 12:43 INR 1.02 (0.87-1.13) 09/14/19 12:43 APTT 27.5 Sec. (24.2-36.6) 09/14/19 12:43 POC ABG pH 7.212 (7.35-7.45) L 09/14/19 13:58 POC ABG pO2 55 (80-105) L 09/14/19 13:58 FiO2 40 % 09/14/19 13:58 Sodium 140 mmol/L (137-145) 09/24/19 07:43 Potassium 3.9 mmol/L (3.6-5.0) 09/24/19 07:43 Chloride 87.7 mmol/L (98-107) L 09/24/19 07:43 Carbon Dioxide 39 mmol/L (22-30) H D 09/24/19 07:43 Anion Gap 17 mmol/L 09/24/19 07:43 BUN 10 mg/dL (7-17) 09/24/19 07:43 Creatinine 0.4 mg/dL (0.7-1.2) L 09/24/19 07:43 Estimated GFR > 60 ml/min 09/24/19 07:43 BUN/Creatinine Ratio 25 % 09/24/19 07:43 Glucose 100 mg/dL (65-100) 09/24/19 07:43 POC Glucose 114 (70-105) H 09/22/19 22:15 Hemoglobin A1c 5.5 % (4-6) 09/14/19 12:43 Calcium 9.1 mg/dL (8.4-10.2) 09/24/19 07:43 Magnesium 2.30 mg/dL (1.7-2.3) 09/16/19 05:42 Total Bilirubin 0.30 mg/dL (0.1-1.2) 09/16/19 05:42 AST 21 units/L (5-40) 09/16/19 05:42 ALT 11 units/L (7-56) 09/16/19 05:42 Alkaline Phosphatase 57 units/L (35-129) 09/16/19 05:42 Total Creatine Kinase 47 units/L (30-135) 09/14/19 12:43 Troponin T < 0.010 ng/mL (0.00-0.029) 09/14/19 12:43 NT-Pro-B Natriuret Pep 112.7 pg/mL (0-450) 09/14/19 12:43 Total Protein 8.4 g/dL (6.3-8.2) H 09/16/19 05:42 Albumin 3.1 g/dL (3.9-5) L 09/16/19 05:42 Albumin/Globulin Ratio 0.6 % 09/16/19 05:42 Active Medications - Current Medications Current Medications: Generic Name Dose Route Start Last Admin Trade Name Freq PRN Reason Stop Dose Admin Acetaminophen 650 mg 09/14/19 21:37 09/24/19 20:07 Tylenol PO 650 mg Q4H PRN Administration Pain MILD(1-3)/Fever >100.5/DOMINIQUE Albuterol 2.5 mg 09/15/19 16:08 Proventil IH Q4H PRN Shortness Of Breath/ Wheezing Albuterol/Ipratropium 1 ampul 09/15/19 20:00 09/25/19 14:43 Duoneb *Not For Prn Use* IH 1 ampul TIDRT DEMOND Administration Arformoterol Tartrate 15 mcg 09/15/19 20:00 09/25/19 09:42 Brovana Nebu IH 15 mcg Q12HRT DEMOND Administration Budesonide 0.5 mg 09/15/19 20:00 09/25/19 09:42 Pulmicort IH 0.5 mg Q12HRT DEMOND Administration Famotidine 20 mg 09/17/19 10:00 09/25/19 09:45 Pepcid PO 20 mg BID DEMOND Administration Furosemide 40 mg 09/15/19 18:00 09/25/19 06:39 Lasix IV 40 mg 0600,1800 DEMOND Administration Heparin Sodium (Porcine) 5,000 unit 09/26/19 22:00 Heparin SUB-Q Q8HR DEMOND Metoclopramide HCl 10 mg 09/14/19 21:37 Reglan IV Q6H PRN Nausea And Vomiting Ondansetron HCl 4 mg 09/14/19 21:37 Zofran IV Q8H PRN Nausea And Vomiting Oxycodone/Acetaminophen 1 tab 09/14/19 21:37 09/24/19 23:35 Percocet 5/325 PO 1 tab Q6H PRN Administration Pain, Moderate (4-6) Sodium Chloride 10 ml 09/14/19 22:00 09/25/19 09:45 Sodium Chloride Flush Syringe 10 Ml IV 10 ml BID DEMOND Administration Sodium Chloride 10 ml 09/14/19 21:37 09/23/19 06:09 Sodium Chloride Flush Syringe 10 Ml IV 10 ml PRN PRN Administration LINE FLUSH Nutrition/Malnutrition Assess - Dietary Evaluation Nutrition/Malnutrition Findings: Nutrition Notes Start: 09/21/19 10:18 Freq: Status: Active Protocol: Document 09/21/19 10:19 CC (Rec: 09/21/19 10:30 CC [id number]) Co-Sign 09/21/19 10:19 LP Nutrition Notes Need for Assessment generated from: LOS Initial or Follow up Assessment Current Diagnosis COPD,Hypertension,Heart Failure Current Diet cardiac Labs/Tests Cl 85.7 Creat 0.5 Pertinent Medications Lasix Height 5 ft 2 in Weight 181.437 kg [place] Body Weight (kg) 50.00 BMI 73.1 Intake Prior to Admission Good Weight Status Morbidly Obese Subjective/Other Information Pt reported her appetite has been good and she has been eating meals in hosptial. Pt had not had heart health diet education previously and was willing to have education. Went over heart health diet with pt and recommendations. Burn Absent Trauma Absent GI Symptoms None Food Allergy No Current % PO Good (75-100%) Minimum of two criteria No physical signs of malnutrition #1 Nutrition Diagnosis Food and nutrition-related knowledge deficit Etiology no prior heart healthy diet education As Evidenced by Signs and Symptoms pt wanting heart healthy education Is patient on ventilator? No Is Patient Ambulatory and/or Out of Bed No REE-([facility]-confined to bed) 2938.620 Kcal/Kg value to use for calculation 11 Approximate Energy Requirements Using 1996 kcal/Kg Calculation Used for Recommendations Kcal/kg Additional Notes PRO: 93-115g/day (0.8-1.0g/kg AdBW 115.7kg) Fluid: 1ml/kcal Nutrition Intervention Change Diet Order: contiune cardiac Teaching Recipient Patient Learning Readiness Good Teaching Methods Discussion,Handout Response to Teaching Verbalize understanding Education Handouts Provided Heart Healthy Eating Nutrition Therapy Barriers to Learning No Barriers RD phone number provided Yes Patient aware of follow up options Yes Anticipated Discharge Needs: cardiac diet Revisit per MD consult or patient Sign Off request:
[2019-09-25] MEDS: oxyCODONE /ACETAMINOPHEN 5-325MG TAB PO PRN (21:42)
[2019-09-26] MEDS: FUROSEMIDE 40 MG/4 ML INJ IV SCH ×2 (06:03→17:30)
[2019-09-26] MEDS: IPRATROPIUM/ALBUTEROL SULFATE 3 ML AMPUL.NEB IH SCH ×3 (08:16→20:20)
[2019-09-26] MEDS: ARFORMOTEROL 15 MCG/2 ML NEBU IH SCH ×2 (08:17→20:20)
[2019-09-26] MEDS: BUDESONIDE 0.5 MG/2 ML NEBU IH SCH ×2 (08:17→20:20)
[2019-09-26] MEDS: FAMOTIDINE 20 MG TAB PO SCH ×2 (10:11→22:14)
--- NOTE | 2019-09-26 12:29 | Progress Note ---
Assessment and Plan 39 y/o morbidly obese female with acute on chronic respiratory failure ELLY and OHS 1. Must wear PPV anytime she is sleeping, discussed again with patient. 2. Continue lasix therapy 3. PT/Consult 4. Nutrition education 5. Patient would likely benefit from LTACH as she has had long standing hypoxemia and will be difficult wean from HFNC given her morbid, morbid obesity. [facility] is working on this. She has been denied by several LTACHs secondary to funding Subjective Date of service: 09/26/19 Principal diagnosis: A/C respiratory failure Interval history: Down to 50% on HFNC. CM working on PPV for night time. Objective Vital Signs - 12hr 09/26/19 09/26/19 09/26/19 03:42 03:45 08:00 Temperature 98.1 F Pulse Rate 86 86 Pulse Rate [ 96 H Anterior Bilateral Throughout] Respiratory 18 Rate Respiratory 20 Rate [Anterior Bilateral Throughout] Blood Pressure 110/59 O2 Sat by Pulse 93 97 Oximetry Constitutional: no acute distress, other (morbidly obese) Eyes: non-icteric Neck: other (extremely large in circumference) Effort: normal Ascultation: Bilateral: diminished breath sounds (secondary to body habitus) Percussion: Bilateral: not dull Tactile fremitus: Bilateral: diminished Cardiovascular: regular rate and rhythm Gastrointestinal: normoactive bowel sounds, non-tender, non-distended, other (morbidly obese) Integumentary: normal Extremities: no cyanosis, pink and warm Neurologic: normal mental status, non-focal exam, pupils equal and round Psychiatric: mood appropriate, affect normal CBC and BMP: 09/21/19 04:58 09/24/19 07:43 ABG, PT/INR, D-dimer: ABG POC ABG pH 7.212 (7.35-7.45) L 09/14/19 13:58 POC ABG pO2 55 (80-105) L 09/14/19 13:58 PT/INR, D-dimer PT 13.3 Sec. (12.2-14.9) 09/14/19 12:43 INR 1.02 (0.87-1.13) 09/14/19 12:43 Abnormal lab findings: Abnormal Labs 09/14/19 09/14/19 09/14/19 12:43 12:43 13:44 WBC 11.4 H Hgb MCH 24 L MCHC 29 L RDW 18.2 H Lymph % (Auto) Eos % (Auto) Lymph # Eos # Seg Neutrophils % Seg Neuts % (Manual) 84.0 H Lymphocytes % (Manual) 11.0 L Nucleated RBC % 3.0 H Seg Neutrophils # Seg Neutrophils # Man 9.6 H Lymphocytes # (Manual) POC ABG pH 7.207 L POC ABG pO2 59 L Sodium Potassium Chloride 88.5 L Carbon Dioxide 44 H* Creatinine 0.4 L Glucose POC Glucose Total Protein 9.0 H Albumin 3.4 L 09/14/19 09/15/19 09/15/19 13:58 07:35 07:35 WBC 12.0 H Hgb 9.7 L MCH 24 L MCHC 29 L RDW 18.0 H Lymph % (Auto) Eos % (Auto) Lymph # Eos # Seg Neutrophils % Seg Neuts % (Manual) 91.0 H Lymphocytes % (Manual) 5.0 L Nucleated RBC % 2.0 H Seg Neutrophils # Seg Neutrophils # Man 10.9 H Lymphocytes # (Manual) 0.6 L POC ABG pH 7.212 L POC ABG pO2 55 L Sodium 146 H Potassium 5.2 H Chloride 88.7 L Carbon Dioxide 49 H* Creatinine 0.4 L Glucose 101 H POC Glucose Total Protein Albumin 3.3 L 09/16/19 09/16/19 09/16/19 05:42 05:42 12:55 WBC Hgb MCH 25 L MCHC RDW 18.0 H Lymph % (Auto) 6.2 L Eos % (Auto) Lymph # 0.6 L Eos # Seg Neutrophils % 89.0 H Seg Neuts % (Manual) Lymphocytes % (Manual) Nucleated RBC % Seg Neutrophils # 9.2 H Seg Neutrophils # Man Lymphocytes # (Manual) POC ABG pH POC ABG pO2 Sodium Potassium 5.6 H Chloride 86.8 L Carbon Dioxide 50 H* Creatinine 0.4 L Glucose 117 H POC Glucose 146 H Total Protein 8.4 H Albumin 3.1 L 09/16/19 09/17/19 09/18/19 18:07 06:52 05:45 WBC Hgb MCH MCHC RDW Lymph % (Auto) Eos % (Auto) Lymph # Eos # Seg Neutrophils % Seg Neuts % (Manual) Lymphocytes % (Manual) Nucleated RBC % Seg Neutrophils # Seg Neutrophils # Man Lymphocytes # (Manual) POC ABG pH POC ABG pO2 Sodium Potassium 5.1 H D Chloride 82.4 L 85.9 L Carbon Dioxide 52 H* 44 H* D Creatinine 0.5 L 0.4 L Glucose POC Glucose 135 H Total Protein Albumin 09/21/19 09/21/19 09/22/19 04:58 04:58 22:15 WBC Hgb MCH 24 L MCHC RDW 17.9 H Lymph % (Auto) Eos % (Auto) 4.6 H Lymph # Eos # 0.5 H Seg Neutrophils % 71.1 H Seg Neuts % (Manual) Lymphocytes % (Manual) Nucleated RBC % Seg Neutrophils # 7.8 H Seg Neutrophils # Man Lymphocytes # (Manual) POC ABG pH POC ABG pO2 Sodium Potassium Chloride 85.7 L Carbon Dioxide 50 H* Creatinine 0.5 L Glucose POC Glucose 114 H Total Protein Albumin 09/24/19 07:43 WBC Hgb MCH MCHC RDW Lymph % (Auto) Eos % (Auto) Lymph # Eos # Seg Neutrophils % Seg Neuts % (Manual) Lymphocytes % (Manual) Nucleated RBC % Seg Neutrophils # Seg Neutrophils # Man Lymphocytes # (Manual) POC ABG pH POC ABG pO2 Sodium Potassium Chloride 87.7 L Carbon Dioxide 39 H D Creatinine 0.4 L Glucose POC Glucose Total Protein Albumin
[2019-09-26] MEDS: ACETAMINOPHEN 325 MG TAB PO PRN (17:30)
--- NOTE | 2019-09-26 19:07 | Progress Note ---
Assessment and Plan Assessment and plan: Patient is a 39 yo woman with a history of extreme obesity, BMI 82.9, hypertension, chronic hypoxic respiratory failure on 4 liters of O2 at home due to OHS who presented to [facility] ED on 09/14/19 with SOB Acute on chronic combined respiratory failure, continue on high flow 55% fio2 and bipap when sleeping Extreme Obesity, BMI 82.9: Dietary recommendations done, Brother (whom she lives with) is enabler it appears Function quadriplegia: PT ELLY/OHS: bipap Hypokalemia, replete, stable DVT ppx sq heparin Disposition: continue inpatient care, multiple LTACH refuses due to Medicaid insurance per case management, trying to get [facility] for home. History Interval history: Patient was seen and examined. Follow-up on current diagnosis of Respiratory failure. No overnight events reported to me. Patient denies any chest pain, nausea/vomiting or severe headaches. Imaging, nursing note, chart, labs and old chart reviewed. Discussed with patient. Hospitalist Physical - Physical exam Narrative exam: Gen: MO bmi 82.9, mild increase accessory muscle usage Awake, Alert, Orientated HEENT: NCAT, EOMI, PERRL, OP Clear Neck: supple, no adenopathy, no thyromegaly, no JVD CVS/Heart: RRR, normal S1S2, pulses present bilaterally Chest/Lungs: diminished bs bilateral, Symmetrical chest expansion, good air entry bilaterally GI/Abdomen: soft, NTND, good bowel sounds, no guarding or rebound /Bladder: no suprapubic tenderness, no CVA or paraspinal tenderness Extermity/Skin: no c/c/e, no obvious rash MSK: FROM x 4 Neuro: CN 2-12 grossly intact, no new focal deficits Psych: calm - Constitutional Vitals: Temp Pulse Resp BP Pulse Ox 98.4 F 99 H 20 124/72 98 09/26/19 18:21 09/26/19 18:21 09/26/19 18:21 09/26/19 18:21 09/26/19 18:21 General appearance: Present: well-nourished, obese (morbidly obese). Absent: mild distress Results - Labs CBC & Chem 7: 09/21/19 04:58 09/24/19 07:43 Labs: Laboratory Last Values WBC 11.0 K/mm3 (4.5-11.0) 09/21/19 04:58 RBC 4.60 M/mm3 (3.65-5.03) 09/21/19 04:58 Hgb 11.0 gm/dl (10.1-14.3) 09/21/19 04:58 Hct 37.0 % (30.3-42.9) 09/21/19 04:58 MCV 80 fl (79-97) 09/21/19 04:58 MCH 24 pg (28-32) L 09/21/19 04:58 MCHC 30 % (30-34) 09/21/19 04:58 RDW 17.9 % (13.2-15.2) H 09/21/19 04:58 Plt Count 167 K/mm3 (140-440) 09/21/19 04:58 Lymph % (Auto) 16.9 % (13.4-35.0) 09/21/19 04:58 [place] % (Auto) 6.9 % (0.0-7.3) 09/21/19 04:58 Eos % (Auto) 4.6 % (0.0-4.3) H 09/21/19 04:58 Baso % (Auto) 0.5 % (0.0-1.8) 09/21/19 04:58 Lymph # 1.9 K/mm3 (1.2-5.4) 09/21/19 04:58 [place] # 0.8 K/mm3 (0.0-0.8) 09/21/19 04:58 Eos # 0.5 K/mm3 (0.0-0.4) H 09/21/19 04:58 Baso # 0.1 K/mm3 (0.0-0.1) 09/21/19 04:58 Add Manual Diff Complete 09/15/19 07:35 Total Counted 100 09/15/19 07:35 Seg Neutrophils % 71.1 % (40.0-70.0) H 09/21/19 04:58 Seg Neuts % (Manual) 91.0 % (40.0-70.0) H 09/15/19 07:35 Band Neutrophils % 0 % 09/15/19 07:35 Lymphocytes % (Manual) 5.0 % (13.4-35.0) L 09/15/19 07:35 Reactive Lymphs % (Man) 0 % 09/15/19 07:35 Monocytes % (Manual) 2.0 % (0.0-7.3) 09/15/19 07:35 Eosinophils % (Manual) 0 % (0.0-4.3) 09/15/19 07:35 Basophils % (Manual) 0 % (0.0-1.8) 09/15/19 07:35 Metamyelocytes % 2.0 % 09/15/19 07:35 Myelocytes % 0 % 09/15/19 07:35 Promyelocytes % 0 % 09/15/19 07:35 Blast Cells % 0 % 09/15/19 07:35 Nucleated RBC % 2.0 % (0.0-0.9) H 09/15/19 07:35 Seg Neutrophils # 7.8 K/mm3 (1.8-7.7) H 09/21/19 04:58 Seg Neutrophils # Man 10.9 K/mm3 (1.8-7.7) H 09/15/19 07:35 Band Neutrophils # 0.0 K/mm3 09/15/19 07:35 Lymphocytes # (Manual) 0.6 K/mm3 (1.2-5.4) L 09/15/19 07:35 Abs React Lymphs (Man) 0.0 K/mm3 09/15/19 07:35 Monocytes # (Manual) 0.2 K/mm3 (0.0-0.8) 09/15/19 07:35 Eosinophils # (Manual) 0.0 K/mm3 (0.0-0.4) 09/15/19 07:35 Basophils # (Manual) 0.0 K/mm3 (0.0-0.1) 09/15/19 07:35 Metamyelocytes # 0.2 K/mm3 09/15/19 07:35 Myelocytes # 0.0 K/mm3 09/15/19 07:35 Promyelocytes # 0.0 K/mm3 09/15/19 07:35 Blast Cells # 0.0 K/mm3 09/15/19 07:35 WBC Morphology Not Reportable 09/15/19 07:35 Hypersegmented Neuts Not Reportable 09/15/19 07:35 Hyposegmented Neuts Not Reportable 09/15/19 07:35 Hypogranular Neuts Not Reportable 09/15/19 07:35 Smudge Cells Not Reportable 09/15/19 07:35 Toxic Granulation Not Reportable 09/15/19 07:35 Toxic Vacuolation Not Reportable 09/15/19 07:35 Dohle Bodies Not Reportable 09/15/19 07:35 Pelger-Huet Anomaly Not Reportable 09/15/19 07:35 Antione Rods Not Reportable 09/15/19 07:35 Platelet Estimate Consistent w auto 09/15/19 07:35 Clumped Platelets Not Reportable 09/15/19 07:35 Plt Clumps, EDTA Not Reportable 09/15/19 07:35 Large Platelets Rare 09/15/19 07:35 Giant Platelets Not Reportable 09/15/19 07:35 Platelet Satelliting Not Reportable 09/15/19 07:35 Plt Morphology Comment Not Reportable 09/15/19 07:35 RBC Morphology Not Reportable 09/15/19 07:35 Dimorphic RBCs Not Reportable 09/15/19 07:35 Polychromasia Not Reportable 09/15/19 07:35 Hypochromasia 1+ 09/15/19 07:35 Poikilocytosis Not Reportable 09/15/19 07:35 Anisocytosis Few 09/15/19 07:35 Microcytosis Not Reportable 09/15/19 07:35 Macrocytosis Not Reportable 09/15/19 07:35 Spherocytes Not Reportable 09/15/19 07:35 Pappenheimer Bodies Not Reportable 09/15/19 07:35 Sickle Cells Not Reportable 09/15/19 07:35 Target Cells Not Reportable 09/15/19 07:35 Tear Drop Cells Not Reportable 09/15/19 07:35 Ovalocytes Not Reportable 09/15/19 07:35 Helmet Cells Not Reportable 09/15/19 07:35 Chung-[place] Bodies Not Reportable 09/15/19 07:35 [place] Rings Not Reportable 09/15/19 07:35 Mike Cells Not Reportable 09/15/19 07:35 Bite Cells Not Reportable 09/15/19 07:35 Crenated Cell Not Reportable 09/15/19 07:35 Elliptocytes Not Reportable 09/15/19 07:35 Acanthocytes (Spur) Not Reportable 09/15/19 07:35 Rouleaux Not Reportable 09/15/19 07:35 Hemoglobin C Crystals Not Reportable 09/15/19 07:35 Schistocytes Not Reportable 09/15/19 07:35 Malaria parasites Not Reportable 09/15/19 07:35 Roldan Bodies Not Reportable 09/15/19 07:35 Hem Pathologist Commnt No 09/15/19 07:35 PT 13.3 Sec. (12.2-14.9) 09/14/19 12:43 INR 1.02 (0.87-1.13) 09/14/19 12:43 APTT 27.5 Sec. (24.2-36.6) 09/14/19 12:43 POC ABG pH 7.412 (7.35-7.45) 09/26/19 13:22 POC ABG pO2 92 (80-105) 09/26/19 13:22 POC ABG HCO3 54.5 (22-26 mml/L) 09/26/19 13:22 POC ABG Total CO2 > 50 (23-27mmol/L) 09/26/19 13:22 POC ABG O2 Sat 96 09/26/19 13:22 POC ABG Base Excess 30 ((-2) - (+3)mmol/L) 09/26/19 13:22 FiO2 55 % 09/26/19 13:22 Sodium 140 mmol/L (137-145) 09/24/19 07:43 Potassium 3.9 mmol/L (3.6-5.0) 09/24/19 07:43 Chloride 87.7 mmol/L (98-107) L 09/24/19 07:43 Carbon Dioxide 39 mmol/L (22-30) H D 09/24/19 07:43 Anion Gap 17 mmol/L 09/24/19 07:43 BUN 10 mg/dL (7-17) 09/24/19 07:43 Creatinine 0.4 mg/dL (0.7-1.2) L 09/24/19 07:43 Estimated GFR > 60 ml/min 09/24/19 07:43 BUN/Creatinine Ratio 25 % 09/24/19 07:43 Glucose 100 mg/dL (65-100) 09/24/19 07:43 POC Glucose 114 (70-105) H 09/22/19 22:15 Hemoglobin A1c 5.5 % (4-6) 09/14/19 12:43 Calcium 9.1 mg/dL (8.4-10.2) 09/24/19 07:43 Magnesium 2.30 mg/dL (1.7-2.3) 09/16/19 05:42 Total Bilirubin 0.30 mg/dL (0.1-1.2) 09/16/19 05:42 AST 21 units/L (5-40) 09/16/19 05:42 ALT 11 units/L (7-56) 09/16/19 05:42 Alkaline Phosphatase 57 units/L (35-129) 09/16/19 05:42 Total Creatine Kinase 47 units/L (30-135) 09/14/19 12:43 Troponin T < 0.010 ng/mL (0.00-0.029) 09/14/19 12:43 NT-Pro-B Natriuret Pep 112.7 pg/mL (0-450) 09/14/19 12:43 Total Protein 8.4 g/dL (6.3-8.2) H 09/16/19 05:42 Albumin 3.1 g/dL (3.9-5) L 09/16/19 05:42 Albumin/Globulin Ratio 0.6 % 09/16/19 05:42 Active Medications - Current Medications Current Medications: Generic Name Dose Route Start Last Admin Trade Name Freq PRN Reason Stop Dose Admin Acetaminophen 650 mg 09/14/19 21:37 09/26/19 17:30 Tylenol PO 650 mg Q4H PRN Administration Pain MILD(1-3)/Fever >100.5/DOMINIQUE Albuterol 2.5 mg 09/15/19 16:08 Proventil IH Q4H PRN Shortness Of Breath/ Wheezing Albuterol/Ipratropium 1 ampul 09/15/19 20:00 09/26/19 13:21 Duoneb *Not For Prn Use* IH 1 ampul TIDRT DEMOND Administration Arformoterol Tartrate 15 mcg 09/15/19 20:00 09/26/19 08:17 Brovana Nebu IH 15 mcg Q12HRT DEMOND Administration Budesonide 0.5 mg 09/15/19 20:00 11/20/19 08:17 Pulmicort IH 0.5 mg Q12HRT DEMOND Administration Famotidine 20 mg 09/17/19 10:00 09/26/19 10:11 Pepcid PO 20 mg BID DEMOND Administration Furosemide 40 mg 09/15/19 18:00 09/26/19 17:30 Lasix IV 40 mg 0600,1800 DEMOND Administration Heparin Sodium (Porcine) 5,000 unit 09/26/19 22:00 Heparin SUB-Q Q8HR DEMOND Metoclopramide HCl 10 mg 09/14/19 21:37 Reglan IV Q6H PRN Nausea And Vomiting Ondansetron HCl 4 mg 09/14/19 21:37 Zofran IV Q8H PRN Nausea And Vomiting Oxycodone/Acetaminophen 1 tab 09/14/19 21:37 09/25/19 21:42 Percocet 5/325 PO 1 tab Q6H PRN Administration Pain, Moderate (4-6) Sodium Chloride 10 ml 09/14/19 22:00 09/26/19 10:13 Sodium Chloride Flush Syringe 10 Ml IV Not Given BID DEMOND Sodium Chloride 10 ml 09/14/19 21:37 09/23/19 06:09 Sodium Chloride Flush Syringe 10 Ml IV 10 ml PRN PRN Administration LINE FLUSH Nutrition/Malnutrition Assess - Dietary Evaluation Nutrition/Malnutrition Findings: Nutrition Notes Start: 09/21/19 10:18 Freq: Status: Active Protocol: Document 09/21/19 10:19 CC (Rec: 09/21/19 10:30 CC [id number]) Co-Sign 09/21/19 10:19 LP Nutrition Notes Need for Assessment generated from: LOS Initial or Follow up Assessment Current Diagnosis COPD,Hypertension,Heart Failure Current Diet cardiac Labs/Tests Cl 85.7 Creat 0.5 Pertinent Medications Lasix Height 5 ft 2 in Weight 181.437 kg [place] Body Weight (kg) 50.00 BMI 73.1 Intake Prior to Admission Good Weight Status Morbidly Obese Subjective/Other Information Pt reported her appetite has been good and she has been eating meals in hosptial. Pt had not had heart health diet education previously and was willing to have education. Went over heart health diet with pt and recommendations. Burn Absent Trauma Absent GI Symptoms None Food Allergy No Current % PO Good (75-100%) Minimum of two criteria No physical signs of malnutrition #1 Nutrition Diagnosis Food and nutrition-related knowledge deficit Etiology no prior heart healthy diet education As Evidenced by Signs and Symptoms pt wanting heart healthy education Is patient on ventilator? No Is Patient Ambulatory and/or Out of Bed No REE-([place]-St. Jeor-confined to bed) 2938.620 Kcal/Kg value to use for calculation 11 Approximate Energy Requirements Using 1995 kcal/Kg Calculation Used for Recommendations Kcal/kg Additional Notes PRO: 93-115g/day (0.8-1.0g/kg AdBW 115.7kg) Fluid: 1ml/kcal Nutrition Intervention Change Diet Order: contiune cardiac Teaching Recipient Patient Learning Readiness Good Teaching Methods Discussion,Handout Response to Teaching Verbalize understanding Education Handouts Provided Heart Healthy Eating Nutrition Therapy Barriers to Learning No Barriers RD phone number provided Yes Patient aware of follow up options Yes Anticipated Discharge Needs: cardiac diet Revisit per MD consult or patient Sign Off request:
[2019-09-26] MEDS: HEPARIN 5,000 UNIT/1 ML VIAL SUB-Q SCH (22:14)
[2019-09-26] MEDS: oxyCODONE /ACETAMINOPHEN 5-325MG TAB PO PRN (22:15)
[2019-09-27] MEDS: HEPARIN 5,000 UNIT/1 ML VIAL SUB-Q SCH ×3 (05:22→22:07)
[2019-09-27] MEDS: FUROSEMIDE 40 MG/4 ML INJ IV SCH ×2 (05:22→18:27)
[2019-09-27] MEDS: oxyCODONE /ACETAMINOPHEN 5-325MG TAB PO PRN (05:22)
[2019-09-27] MEDS: ARFORMOTEROL 15 MCG/2 ML NEBU IH SCH ×2 (07:12→20:23)
[2019-09-27] MEDS: BUDESONIDE 0.5 MG/2 ML NEBU IH SCH ×2 (07:12→20:23)
[2019-09-27] MEDS: IPRATROPIUM/ALBUTEROL SULFATE 3 ML AMPUL.NEB IH SCH ×3 (07:12→20:23)
[2019-09-27] MEDS: FAMOTIDINE 20 MG TAB PO SCH ×2 (10:10→22:07)
--- NOTE | 2019-09-27 12:12 | Progress Note ---
Assessment and Plan 39 y/o morbidly obese female with acute on chronic respiratory failure ELLY and OHS 1. Must wear PPV anytime she is sleeping, discussed again with patient. 2. Continue lasix therapy 3. PT/Consult 4. Nutrition education 5. Per CM note, patient has a bipap at home that was issued by [employer]. If she can find this machine and it is usable, have no issue with her using this at home. Clearly she has not been using it so compliance is at question. Will place another order for RT to wean aggressively the HFNC for sats >88% Subjective Date of service: 09/27/19 Principal diagnosis: A/C respiratory failure Interval history: Patient now back up to 55%. Document yesterday at 50%. No documentation as to why up to 55 but has good sats. Objective Vital Signs - 12hr 09/27/19 09/27/19 09/27/19 03:00 05:02 05:22 Temperature 98.0 F Pulse Rate 91 H 91 H Pulse Rate [ Anterior Bilateral Throughout] Respiratory 16 22 Rate Respiratory Rate [Anterior Bilateral Throughout] Blood Pressure 112/54 O2 Sat by Pulse 86 Oximetry 09/27/19 09/27/19 09/27/19 07:09 07:21 08:18 Temperature Pulse Rate Pulse Rate [ 92 H Anterior Bilateral Throughout] Respiratory 18 Rate Respiratory 18 Rate [Anterior Bilateral Throughout] Blood Pressure 93/52 O2 Sat by Pulse 97 Oximetry Constitutional: no acute distress, other (morbidly obese) Eyes: non-icteric Neck: other (extremely large in circumference) Effort: normal Ascultation: Bilateral: diminished breath sounds (secondary to body habitus) Percussion: Bilateral: not dull Tactile fremitus: Bilateral: diminished Cardiovascular: regular rate and rhythm Gastrointestinal: normoactive bowel sounds, non-tender, non-distended, other (morbidly obese) Integumentary: normal Extremities: no cyanosis, pink and warm Neurologic: normal mental status, non-focal exam, pupils equal and round Psychiatric: mood appropriate, affect normal CBC and BMP: 09/21/19 04:58 09/24/19 07:43 ABG, PT/INR, D-dimer: ABG POC ABG pH 7.412 (7.35-7.45) 09/26/19 13:22 POC ABG pO2 92 (80-105) 09/26/19 13:22 POC ABG HCO3 54.5 (22-26 mml/L) 09/26/19 13:22 POC ABG Total CO2 > 50 (23-27mmol/L) 09/26/19 13:22 POC ABG O2 Sat 96 09/26/19 13:22 PT/INR, D-dimer PT 13.3 Sec. (12.2-14.9) 09/14/19 12:43 INR 1.02 (0.87-1.13) 09/14/19 12:43 Abnormal lab findings: Abnormal Labs 09/14/19 09/14/19 09/14/19 12:43 12:43 13:44 WBC 11.4 H Hgb MCH 24 L MCHC 29 L RDW 18.2 H Lymph % (Auto) Eos % (Auto) Lymph # Eos # Seg Neutrophils % Seg Neuts % (Manual) 84.0 H Lymphocytes % (Manual) 11.0 L Nucleated RBC % 3.0 H Seg Neutrophils # Seg Neutrophils # Man 9.6 H Lymphocytes # (Manual) POC ABG pH 7.207 L POC ABG pO2 59 L Sodium Potassium Chloride 88.5 L Carbon Dioxide 44 H* Creatinine 0.4 L Glucose POC Glucose Total Protein 9.0 H Albumin 3.4 L 09/14/19 09/15/19 09/15/19 13:58 07:35 07:35 WBC 12.0 H Hgb 9.7 L MCH 24 L MCHC 29 L RDW 18.0 H Lymph % (Auto) Eos % (Auto) Lymph # Eos # Seg Neutrophils % Seg Neuts % (Manual) 91.0 H Lymphocytes % (Manual) 5.0 L Nucleated RBC % 2.0 H Seg Neutrophils # Seg Neutrophils # Man 10.9 H Lymphocytes # (Manual) 0.6 L POC ABG pH 7.212 L POC ABG pO2 55 L Sodium 146 H Potassium 5.2 H Chloride 88.7 L Carbon Dioxide 49 H* Creatinine 0.4 L Glucose 101 H POC Glucose Total Protein Albumin 3.3 L 09/16/19 09/16/19 09/16/19 05:42 05:42 12:55 WBC Hgb MCH 25 L MCHC RDW 18.0 H Lymph % (Auto) 6.2 L Eos % (Auto) Lymph # 0.6 L Eos # Seg Neutrophils % 89.0 H Seg Neuts % (Manual) Lymphocytes % (Manual) Nucleated RBC % Seg Neutrophils # 9.2 H Seg Neutrophils # Man Lymphocytes # (Manual) POC ABG pH POC ABG pO2 Sodium Potassium 5.6 H Chloride 86.8 L Carbon Dioxide 50 H* Creatinine 0.4 L Glucose 117 H POC Glucose 146 H Total Protein 8.4 H Albumin 3.1 L 09/16/19 09/17/19 09/18/19 18:07 06:52 05:45 WBC Hgb MCH MCHC RDW Lymph % (Auto) Eos % (Auto) Lymph # Eos # Seg Neutrophils % Seg Neuts % (Manual) Lymphocytes % (Manual) Nucleated RBC % Seg Neutrophils # Seg Neutrophils # Man Lymphocytes # (Manual) POC ABG pH POC ABG pO2 Sodium Potassium 5.1 H D Chloride 82.4 L 85.9 L Carbon Dioxide 52 H* 44 H* D Creatinine 0.5 L 0.4 L Glucose POC Glucose 135 H Total Protein Albumin 09/21/19 09/21/19 09/22/19 04:58 04:58 22:15 WBC Hgb MCH 24 L MCHC RDW 17.9 H Lymph % (Auto) Eos % (Auto) 4.6 H Lymph # Eos # 0.5 H Seg Neutrophils % 71.1 H Seg Neuts % (Manual) Lymphocytes % (Manual) Nucleated RBC % Seg Neutrophils # 7.8 H Seg Neutrophils # Man Lymphocytes # (Manual) POC ABG pH POC ABG pO2 Sodium Potassium Chloride 85.7 L Carbon Dioxide 50 H* Creatinine 0.5 L Glucose POC Glucose 114 H Total Protein Albumin 09/24/19 07:43 WBC Hgb MCH MCHC RDW Lymph % (Auto) Eos % (Auto) Lymph # Eos # Seg Neutrophils % Seg Neuts % (Manual) Lymphocytes % (Manual) Nucleated RBC % Seg Neutrophils # Seg Neutrophils # Man Lymphocytes # (Manual) POC ABG pH POC ABG pO2 Sodium Potassium Chloride 87.7 L Carbon Dioxide 39 H D Creatinine 0.4 L Glucose POC Glucose Total Protein Albumin
--- NOTE | 2019-09-27 18:05 | Progress Note ---
Assessment and Plan Assessment and plan: Patient is a 39 yo woman with a history of extreme obesity, BMI 82.9, hypertension, chronic hypoxic respiratory failure on 4 liters of O2 at home due to OHS who presented to [facility] ED on 09/14/19 with SOB Acute on chronic combined respiratory failure, continue on high flow 55% fio2 and bipap when sleeping Extreme Obesity, BMI 82.9: Dietary recommendations done, Brother (whom she lives with) is enabler it appears Function quadriplegia: PT ELLY/OHS: bipap Hypokalemia, replete, stable DVT ppx sq heparin Disposition: continue inpatient care, multiple LTACH refuses due to Medicaid insurance per case management, trying to get [facility] for home. History Interval history: Patient was seen and examined. Follow-up on current diagnosis of Respiratory failure. No overnight events reported to me. Patient denies any chest pain, nausea/vomiting or severe headaches. Imaging, nursing note, chart, labs and old chart reviewed. Discussed with patient. Hospitalist Physical - Physical exam Narrative exam: Gen: MO bmi 82.9, mild increase accessory muscle usage Awake, Alert, Orientated HEENT: NCAT, EOMI, PERRL, OP Clear Neck: supple, no adenopathy, no thyromegaly, no JVD CVS/Heart: RRR, normal S1S2, pulses present bilaterally Chest/Lungs: diminished bs bilateral, Symmetrical chest expansion, good air entry bilaterally GI/Abdomen: soft, NTND, good bowel sounds, no guarding or rebound /Bladder: no suprapubic tenderness, no CVA or paraspinal tenderness Extermity/Skin: no c/c/e, no obvious rash MSK: FROM x 4 Neuro: CN 2-12 grossly intact, no new focal deficits Psych: calm - Constitutional Vitals: Temp Pulse Resp BP Pulse Ox 98.1 F 94 H 18 105/63 94 09/27/19 11:49 09/27/19 14:00 09/27/19 14:00 09/27/19 11:49 09/27/19 17:04 General appearance: Present: well-nourished, obese (morbidly obese). Absent: mild distress Results - Labs CBC & Chem 7: 09/21/19 04:58 09/24/19 07:43 Labs: Laboratory Last Values WBC 11.0 K/mm3 (4.5-11.0) 09/21/19 04:58 RBC 4.60 M/mm3 (3.65-5.03) 09/21/19 04:58 Hgb 11.0 gm/dl (10.1-14.3) 09/21/19 04:58 Hct 37.0 % (30.3-42.9) 09/21/19 04:58 MCV 80 fl (79-97) 09/21/19 04:58 MCH 24 pg (28-32) L 09/21/19 04:58 MCHC 30 % (30-34) 09/21/19 04:58 RDW 17.9 % (13.2-15.2) H 09/21/19 04:58 Plt Count 167 K/mm3 (140-440) 09/21/19 04:58 Lymph % (Auto) 16.9 % (13.4-35.0) 09/21/19 04:58 [place] % (Auto) 6.9 % (0.0-7.3) 09/21/19 04:58 Eos % (Auto) 4.6 % (0.0-4.3) H 09/21/19 04:58 Baso % (Auto) 0.5 % (0.0-1.8) 09/21/19 04:58 Lymph # 1.9 K/mm3 (1.2-5.4) 09/21/19 04:58 Alpine # 0.8 K/mm3 (0.0-0.8) 09/21/19 04:58 Eos # 0.5 K/mm3 (0.0-0.4) H 09/21/19 04:58 Baso # 0.1 K/mm3 (0.0-0.1) 09/21/19 04:58 Add Manual Diff Complete 09/15/19 07:35 Total Counted 100 09/15/19 07:35 Seg Neutrophils % 71.1 % (40.0-70.0) H 09/21/19 04:58 Seg Neuts % (Manual) 91.0 % (40.0-70.0) H 09/15/19 07:35 Band Neutrophils % 0 % 09/15/19 07:35 Lymphocytes % (Manual) 5.0 % (13.4-35.0) L 09/15/19 07:35 Reactive Lymphs % (Man) 0 % 09/15/19 07:35 Monocytes % (Manual) 2.0 % (0.0-7.3) 09/15/19 07:35 Eosinophils % (Manual) 0 % (0.0-4.3) 09/15/19 07:35 Basophils % (Manual) 0 % (0.0-1.8) 09/15/19 07:35 Metamyelocytes % 2.0 % 09/15/19 07:35 Myelocytes % 0 % 09/15/19 07:35 Promyelocytes % 0 % 09/15/19 07:35 Blast Cells % 0 % 09/15/19 07:35 Nucleated RBC % 2.0 % (0.0-0.9) H 09/15/19 07:35 Seg Neutrophils # 7.8 K/mm3 (1.8-7.7) H 09/21/19 04:58 Seg Neutrophils # Man 10.9 K/mm3 (1.8-7.7) H 09/15/19 07:35 Band Neutrophils # 0.0 K/mm3 09/15/19 07:35 Lymphocytes # (Manual) 0.6 K/mm3 (1.2-5.4) L 09/15/19 07:35 Abs React Lymphs (Man) 0.0 K/mm3 09/15/19 07:35 Monocytes # (Manual) 0.2 K/mm3 (0.0-0.8) 09/15/19 07:35 Eosinophils # (Manual) 0.0 K/mm3 (0.0-0.4) 09/15/19 07:35 Basophils # (Manual) 0.0 K/mm3 (0.0-0.1) 09/15/19 07:35 Metamyelocytes # 0.2 K/mm3 09/15/19 07:35 Myelocytes # 0.0 K/mm3 09/15/19 07:35 Promyelocytes # 0.0 K/mm3 09/15/19 07:35 Blast Cells # 0.0 K/mm3 09/15/19 07:35 WBC Morphology Not Reportable 09/15/19 07:35 Hypersegmented Neuts Not Reportable 09/15/19 07:35 Hyposegmented Neuts Not Reportable 09/15/19 07:35 Hypogranular Neuts Not Reportable 09/15/19 07:35 Smudge Cells Not Reportable 09/15/19 07:35 Toxic Granulation Not Reportable 09/15/19 07:35 Toxic Vacuolation Not Reportable 09/15/19 07:35 Dohle Bodies Not Reportable 09/15/19 07:35 Pelger-Huet Anomaly Not Reportable 09/15/19 07:35 Antione Rods Not Reportable 09/15/19 07:35 Platelet Estimate Consistent w auto 09/15/19 07:35 Clumped Platelets Not Reportable 09/15/19 07:35 Plt Clumps, EDTA Not Reportable 09/15/19 07:35 Large Platelets Rare 09/15/19 07:35 Giant Platelets Not Reportable 09/15/19 07:35 Platelet Satelliting Not Reportable 09/15/19 07:35 Plt Morphology Comment Not Reportable 09/15/19 07:35 RBC Morphology Not Reportable 09/15/19 07:35 Dimorphic RBCs Not Reportable 09/15/19 07:35 Polychromasia Not Reportable 09/15/19 07:35 Hypochromasia 1+ 09/15/19 07:35 Poikilocytosis Not Reportable 09/15/19 07:35 Anisocytosis Few 09/15/19 07:35 Microcytosis Not Reportable 09/15/19 07:35 Macrocytosis Not Reportable 09/15/19 07:35 Spherocytes Not Reportable 09/15/19 07:35 Pappenheimer Bodies Not Reportable 09/15/19 07:35 Sickle Cells Not Reportable 09/15/19 07:35 Target Cells Not Reportable 09/15/19 07:35 Tear Drop Cells Not Reportable 09/15/19 07:35 Ovalocytes Not Reportable 09/15/19 07:35 Helmet Cells Not Reportable 09/15/19 07:35 [place] Bodies Not Reportable 09/15/19 07:35 Roxie Rings Not Reportable 09/15/19 07:35 Mike Cells Not Reportable 09/15/19 07:35 Bite Cells Not Reportable 09/15/19 07:35 Crenated Cell Not Reportable 09/15/19 07:35 Elliptocytes Not Reportable 09/15/19 07:35 Acanthocytes (Spur) Not Reportable 09/15/19 07:35 Rouleaux Not Reportable 09/15/19 07:35 Hemoglobin C Crystals Not Reportable 09/15/19 07:35 Schistocytes Not Reportable 09/15/19 07:35 Malaria parasites Not Reportable 09/15/19 07:35 Roldan Bodies Not Reportable 09/15/19 07:35 Hem Pathologist Commnt No 09/15/19 07:35 PT 13.3 Sec. (12.2-14.9) 09/14/19 12:43 INR 1.02 (0.87-1.13) 09/14/19 12:43 APTT 27.5 Sec. (24.2-36.6) 09/14/19 12:43 POC ABG pH 7.412 (7.35-7.45) 09/26/19 13:22 POC ABG pO2 92 (80-105) 09/26/19 13:22 POC ABG HCO3 54.5 (22-26 mml/L) 09/26/19 13:22 POC ABG Total CO2 > 50 (23-27mmol/L) 09/26/19 13:22 POC ABG O2 Sat 96 09/26/19 13:22 POC ABG Base Excess 30 ((-2) - (+3)mmol/L) 09/26/19 13:22 FiO2 55 % 09/26/19 13:22 Sodium 140 mmol/L (137-145) 09/24/19 07:43 Potassium 3.9 mmol/L (3.6-5.0) 09/24/19 07:43 Chloride 87.7 mmol/L (98-107) L 09/24/19 07:43 Carbon Dioxide 39 mmol/L (22-30) H D 09/24/19 07:43 Anion Gap 17 mmol/L 09/24/19 07:43 BUN 10 mg/dL (7-17) 09/24/19 07:43 Creatinine 0.4 mg/dL (0.7-1.2) L 09/24/19 07:43 Estimated GFR > 60 ml/min 09/24/19 07:43 BUN/Creatinine Ratio 25 % 09/24/19 07:43 Glucose 100 mg/dL (65-100) 09/24/19 07:43 POC Glucose 114 (70-105) H 09/22/19 22:15 Hemoglobin A1c 5.5 % (4-6) 09/14/19 12:43 Calcium 9.1 mg/dL (8.4-10.2) 09/24/19 07:43 Magnesium 2.30 mg/dL (1.7-2.3) 09/16/19 05:42 Total Bilirubin 0.30 mg/dL (0.1-1.2) 09/16/19 05:42 AST 21 units/L (5-40) 09/16/19 05:42 ALT 11 units/L (7-56) 09/16/19 05:42 Alkaline Phosphatase 57 units/L (35-129) 09/16/19 05:42 Total Creatine Kinase 47 units/L (30-135) 09/14/19 12:43 Troponin T < 0.010 ng/mL (0.00-0.029) 09/14/19 12:43 NT-Pro-B Natriuret Pep 112.7 pg/mL (0-450) 09/14/19 12:43 Total Protein 8.4 g/dL (6.3-8.2) H 09/16/19 05:42 Albumin 3.1 g/dL (3.9-5) L 09/16/19 05:42 Albumin/Globulin Ratio 0.6 % 09/16/19 05:42 Active Medications - Current Medications Current Medications: Generic Name Dose Route Start Last Admin Trade Name Freq PRN Reason Stop Dose Admin Acetaminophen 650 mg 09/14/19 21:37 09/26/19 17:30 Tylenol PO 650 mg Q4H PRN Administration Pain MILD(1-3)/Fever >100.5/DOMINIQUE Albuterol 2.5 mg 09/15/19 16:08 Proventil IH Q4H PRN Shortness Of Breath/ Wheezing Albuterol/Ipratropium 1 ampul 09/15/19 20:00 09/27/19 16:31 Duoneb *Not For Prn Use* IH Not Given TIDRT DEMOND Arformoterol Tartrate 15 mcg 09/15/19 20:00 09/27/19 07:12 Brovana Nebu IH 15 mcg Q12HRT DEMOND Administration Budesonide 0.5 mg 09/15/19 20:00 09/27/19 07:12 Pulmicort IH 0.5 mg Q12HRT DEMOND Administration Famotidine 20 mg 09/17/19 10:00 09/27/19 10:10 Pepcid PO 20 mg BID DEMOND Administration Furosemide 40 mg 09/15/19 18:00 09/27/19 05:22 Lasix IV 40 mg 0600,1800 DEMOND Administration Heparin Sodium (Porcine) 5,000 unit 09/26/19 22:00 09/27/19 16:14 Heparin SUB-Q 5,000 unit Q8HR DEMOND Administration Metoclopramide HCl 10 mg 09/14/19 21:37 Reglan IV Q6H PRN Nausea And Vomiting Ondansetron HCl 4 mg 09/14/19 21:37 Zofran IV Q8H PRN Nausea And Vomiting Oxycodone/Acetaminophen 1 tab 09/14/19 21:37 09/27/19 05:22 Percocet 5/325 PO 1 tab Q6H PRN Administration Pain, Moderate (4-6) Sodium Chloride 10 ml 09/14/19 22:00 09/27/19 10:11 Sodium Chloride Flush Syringe 10 Ml IV 10 ml BID DEMOND Administration Sodium Chloride 10 ml 09/14/19 21:37 09/23/19 06:09 Sodium Chloride Flush Syringe 10 Ml IV 10 ml PRN PRN Administration LINE FLUSH Nutrition/Malnutrition Assess - Dietary Evaluation Nutrition/Malnutrition Findings: Nutrition Notes Start: 09/21/19 10:18 Freq: Status: Active Protocol: Document 09/21/19 10:19 CC (Rec: 09/21/19 10:30 CC [id number]) Co-Sign 09/21/19 10:19 LP Nutrition Notes Need for Assessment generated from: LOS Initial or Follow up Assessment Current Diagnosis COPD,Hypertension,Heart Failure Current Diet cardiac Labs/Tests Cl 85.7 Creat 0.5 Pertinent Medications Lasix Height 5 ft 2 in Weight 181.437 kg [place] Body Weight (kg) 50.00 BMI 73.1 Intake Prior to Admission Good Weight Status Morbidly Obese Subjective/Other Information Pt reported her appetite has been good and she has been eating meals in hosptial. Pt had not had heart health diet education previously and was willing to have education. Went over heart health diet with pt and recommendations. Burn Absent Trauma Absent GI Symptoms None Food Allergy No Current % PO Good (75-100%) Minimum of two criteria No physical signs of malnutrition #1 Nutrition Diagnosis Food and nutrition-related knowledge deficit Etiology no prior heart healthy diet education As Evidenced by Signs and Symptoms pt wanting heart healthy education Is patient on ventilator? No Is Patient Ambulatory and/or Out of Bed No REE-([place]-confined to bed) 2938.620 Kcal/Kg value to use for calculation 11 Approximate Energy Requirements Using 1995 kcal/Kg Calculation Used for Recommendations Kcal/kg Additional Notes PRO: 93-115g/day (0.8-1.0g/kg AdBW 115.7kg) Fluid: 1ml/kcal Nutrition Intervention Change Diet Order: contiune cardiac Teaching Recipient Patient Learning Readiness Good Teaching Methods Discussion,Handout Response to Teaching Verbalize understanding Education Handouts Provided Heart Healthy Eating Nutrition Therapy Barriers to Learning No Barriers RD phone number provided Yes Patient aware of follow up options Yes Anticipated Discharge Needs: cardiac diet Revisit per MD consult or patient Sign Off request:
[2019-09-28] MEDS: oxyCODONE /ACETAMINOPHEN 5-325MG TAB PO PRN ×4 (00:53→23:27)
[2019-09-28] MEDS: HEPARIN 5,000 UNIT/1 ML VIAL SUB-Q SCH ×3 (05:12→21:47)
[2019-09-28] MEDS: FUROSEMIDE 40 MG/4 ML INJ IV SCH ×2 (05:12→17:33)
[2019-09-28] MEDS: BUDESONIDE 0.5 MG/2 ML NEBU IH SCH ×2 (08:48→21:03)
[2019-09-28] MEDS: IPRATROPIUM/ALBUTEROL SULFATE 3 ML AMPUL.NEB IH SCH ×3 (08:48→21:03)
[2019-09-28] MEDS: ARFORMOTEROL 15 MCG/2 ML NEBU IH SCH ×2 (08:48→21:03)
[2019-09-28] MEDS: FAMOTIDINE 20 MG TAB PO SCH ×2 (09:11→21:47)
--- NOTE | 2019-09-28 11:10 | Progress Note ---
Assessment and Plan 39 y/o morbidly obese female with acute on chronic respiratory failure ELLY and OHS 1. Down to manageable amount of home nasal cannula 2. Needs PPV at night 3. ONce home situation has been addressed no objection to discharge. 4. Can follow up in the office. Subjective Date of service: 09/28/19 Principal diagnosis: A/C respiratory failure Interval history: No acute events. Weaned off of HFNC to 4 liters NC. Sats in the mid 90's. Objective Vital Signs - 12hr 09/27/19 09/28/19 09/28/19 23:15 00:00 04:04 Temperature 99.2 F 98.3 F Pulse Rate 86 82 85 Pulse Rate [ Anterior Bilateral Throughout] Respiratory 18 22 20 Rate Respiratory Rate [Anterior Bilateral Throughout] Blood Pressure 97/51 155/86 Blood Pressure [Right] O2 Sat by Pulse 93 96 90 Oximetry 09/28/19 09/28/19 09/28/19 07:40 07:41 08:50 Temperature 97.7 F 97.7 F Pulse Rate 86 Pulse Rate [ 96 H Anterior Bilateral Throughout] Respiratory 18 18 Rate Respiratory 20 Rate [Anterior Bilateral Throughout] Blood Pressure 123/72 Blood Pressure 123/72 [Right] O2 Sat by Pulse 97 Oximetry 09/28/19 08:51 Temperature Pulse Rate Pulse Rate [ Anterior Bilateral Throughout] Respiratory Rate Respiratory Rate [Anterior Bilateral Throughout] Blood Pressure Blood Pressure [Right] O2 Sat by Pulse 94 Oximetry Constitutional: no acute distress, other (morbidly obese) Eyes: non-icteric Neck: other (extremely large in circumference) Effort: normal Ascultation: Bilateral: diminished breath sounds (secondary to body habitus) Percussion: Bilateral: not dull Tactile fremitus: Bilateral: diminished Cardiovascular: regular rate and rhythm Gastrointestinal: normoactive bowel sounds, non-tender, non-distended, other (morbidly obese) Integumentary: normal Extremities: no cyanosis, pink and warm Neurologic: normal mental status, non-focal exam, pupils equal and round Psychiatric: mood appropriate, affect normal CBC and BMP: 09/21/19 04:58 09/24/19 07:43 ABG, PT/INR, D-dimer: ABG POC ABG pH 7.412 (7.35-7.45) 09/26/19 13:22 POC ABG pO2 92 (80-105) 09/26/19 13:22 POC ABG HCO3 54.5 (22-26 mml/L) 09/26/19 13:22 POC ABG Total CO2 > 50 (23-27mmol/L) 09/26/19 13:22 POC ABG O2 Sat 96 09/26/19 13:22 PT/INR, D-dimer PT 13.3 Sec. (12.2-14.9) 09/14/19 12:43 INR 1.02 (0.87-1.13) 09/14/19 12:43 Abnormal lab findings: Abnormal Labs 09/14/19 09/14/19 09/14/19 12:43 12:43 13:44 WBC 11.4 H Hgb MCH 24 L MCHC 29 L RDW 18.2 H Lymph % (Auto) Eos % (Auto) Lymph # Eos # Seg Neutrophils % Seg Neuts % (Manual) 84.0 H Lymphocytes % (Manual) 11.0 L Nucleated RBC % 3.0 H Seg Neutrophils # Seg Neutrophils # Man 9.6 H Lymphocytes # (Manual) POC ABG pH 7.207 L POC ABG pO2 59 L Sodium Potassium Chloride 88.5 L Carbon Dioxide 44 H* Creatinine 0.4 L Glucose POC Glucose Total Protein 9.0 H Albumin 3.4 L 09/14/19 09/15/19 09/15/19 13:58 07:35 07:35 WBC 12.0 H Hgb 9.7 L MCH 24 L MCHC 29 L RDW 18.0 H Lymph % (Auto) Eos % (Auto) Lymph # Eos # Seg Neutrophils % Seg Neuts % (Manual) 91.0 H Lymphocytes % (Manual) 5.0 L Nucleated RBC % 2.0 H Seg Neutrophils # Seg Neutrophils # Man 10.9 H Lymphocytes # (Manual) 0.6 L POC ABG pH 7.212 L POC ABG pO2 55 L Sodium 146 H Potassium 5.2 H Chloride 88.7 L Carbon Dioxide 49 H* Creatinine 0.4 L Glucose 101 H POC Glucose Total Protein Albumin 3.3 L 09/16/19 09/16/19 09/16/19 05:42 05:42 12:55 WBC Hgb MCH 25 L MCHC RDW 18.0 H Lymph % (Auto) 6.2 L Eos % (Auto) Lymph # 0.6 L Eos # Seg Neutrophils % 89.0 H Seg Neuts % (Manual) Lymphocytes % (Manual) Nucleated RBC % Seg Neutrophils # 9.2 H Seg Neutrophils # Man Lymphocytes # (Manual) POC ABG pH POC ABG pO2 Sodium Potassium 5.6 H Chloride 86.8 L Carbon Dioxide 50 H* Creatinine 0.4 L Glucose 117 H POC Glucose 146 H Total Protein 8.4 H Albumin 3.1 L 09/16/19 09/17/19 09/18/19 18:07 06:52 05:45 WBC Hgb MCH MCHC RDW Lymph % (Auto) Eos % (Auto) Lymph # Eos # Seg Neutrophils % Seg Neuts % (Manual) Lymphocytes % (Manual) Nucleated RBC % Seg Neutrophils # Seg Neutrophils # Man Lymphocytes # (Manual) POC ABG pH POC ABG pO2 Sodium Potassium 5.1 H D Chloride 82.4 L 85.9 L Carbon Dioxide 52 H* 44 H* D Creatinine 0.5 L 0.4 L Glucose POC Glucose 135 H Total Protein Albumin 09/21/19 09/21/19 09/22/19 04:58 04:58 22:15 WBC Hgb MCH 24 L MCHC RDW 17.9 H Lymph % (Auto) Eos % (Auto) 4.6 H Lymph # Eos # 0.5 H Seg Neutrophils % 71.1 H Seg Neuts % (Manual) Lymphocytes % (Manual) Nucleated RBC % Seg Neutrophils # 7.8 H Seg Neutrophils # Man Lymphocytes # (Manual) POC ABG pH POC ABG pO2 Sodium Potassium Chloride 85.7 L Carbon Dioxide 50 H* Creatinine 0.5 L Glucose POC Glucose 114 H Total Protein Albumin 09/24/19 07:43 WBC Hgb MCH MCHC RDW Lymph % (Auto) Eos % (Auto) Lymph # Eos # Seg Neutrophils % Seg Neuts % (Manual) Lymphocytes % (Manual) Nucleated RBC % Seg Neutrophils # Seg Neutrophils # Man Lymphocytes # (Manual) POC ABG pH POC ABG pO2 Sodium Potassium Chloride 87.7 L Carbon Dioxide 39 H D Creatinine 0.4 L Glucose POC Glucose Total Protein Albumin
--- NOTE | 2019-09-28 17:17 | Progress Note ---
Assessment and Plan Assessment and plan: Patient is a 39 yo woman with a history of extreme obesity, BMI 82.9, hypertension, chronic hypoxic respiratory failure on 4 liters of O2 at home due to OHS who presented to [facility] ED on 09/14/19 with SOB Acute on chronic combined respiratory failure, continue on high flow 55% fio2 and bipap when sleeping Extreme Obesity, BMI 82.9: Dietary recommendations done, Brother (whom she lives with) is enabler it appears Function quadriplegia: PT ELLY/OHS: bipap Hypokalemia, replete, stable DVT ppx sq heparin Disposition: continue inpatient care, multiple LTACH refuses due to Medicaid insurance per case management, trying to get [facility] for home. Per [facility] [phone],here onsite informed that pt information has been faxed for NIV,and is pending for approval. History Interval history: Patient was seen and examined. Follow-up on current diagnosis of Respiratory failure. No overnight events reported to me. Patient denies any chest pain, nausea/vomiting or severe headaches. Imaging, nursing note, chart, labs and old chart reviewed. Discussed with patient. Hospitalist Physical - Physical exam Narrative exam: Gen: MO bmi 82.9, mild increase accessory muscle usage Awake, Alert, Orientated HEENT: NCAT, EOMI, PERRL, OP Clear Neck: supple, no adenopathy, no thyromegaly, no JVD CVS/Heart: RRR, normal S1S2, pulses present bilaterally Chest/Lungs: diminished bs bilateral, Symmetrical chest expansion, good air entry bilaterally GI/Abdomen: soft, NTND, good bowel sounds, no guarding or rebound /Bladder: no suprapubic tenderness, no CVA or paraspinal tenderness Extermity/Skin: no c/c/e, no obvious rash MSK: FROM x 4 Neuro: CN 2-12 grossly intact, no new focal deficits Psych: calm - Constitutional Vitals: Temp Pulse Resp BP Pulse Ox 99.6 F 93 H 18 111/62 92 09/28/19 11:48 09/28/19 15:00 09/28/19 14:20 09/28/19 11:48 09/28/19 11:48 General appearance: Present: well-nourished, obese (morbidly obese). Absent: mild distress Results - Labs CBC & Chem 7: 09/21/19 04:58 09/24/19 07:43 Labs: Laboratory Last Values WBC 11.0 K/mm3 (4.5-11.0) 09/21/19 04:58 RBC 4.60 M/mm3 (3.65-5.03) 09/21/19 04:58 Hgb 11.0 gm/dl (10.1-14.3) 09/21/19 04:58 Hct 37.0 % (30.3-42.9) 09/21/19 04:58 MCV 80 fl (79-97) 09/21/19 04:58 MCH 24 pg (28-32) L 09/21/19 04:58 MCHC 30 % (30-34) 09/21/19 04:58 RDW 17.9 % (13.2-15.2) H 09/21/19 04:58 Plt Count 167 K/mm3 (140-440) 09/21/19 04:58 Lymph % (Auto) 16.9 % (13.4-35.0) 09/21/19 04:58 [place] % (Auto) 6.9 % (0.0-7.3) 09/21/19 04:58 Eos % (Auto) 4.6 % (0.0-4.3) H 09/21/19 04:58 Baso % (Auto) 0.5 % (0.0-1.8) 09/21/19 04:58 Lymph # 1.9 K/mm3 (1.2-5.4) 09/21/19 04:58 [place] # 0.8 K/mm3 (0.0-0.8) 09/21/19 04:58 Eos # 0.5 K/mm3 (0.0-0.4) H 09/21/19 04:58 Baso # 0.1 K/mm3 (0.0-0.1) 09/21/19 04:58 Add Manual Diff Complete 09/15/19 07:35 Total Counted 100 09/15/19 07:35 Seg Neutrophils % 71.1 % (40.0-70.0) H 09/21/19 04:58 Seg Neuts % (Manual) 91.0 % (40.0-70.0) H 09/15/19 07:35 Band Neutrophils % 0 % 09/15/19 07:35 Lymphocytes % (Manual) 5.0 % (13.4-35.0) L 09/15/19 07:35 Reactive Lymphs % (Man) 0 % 09/15/19 07:35 Monocytes % (Manual) 2.0 % (0.0-7.3) 09/15/19 07:35 Eosinophils % (Manual) 0 % (0.0-4.3) 09/15/19 07:35 Basophils % (Manual) 0 % (0.0-1.8) 09/15/19 07:35 Metamyelocytes % 2.0 % 09/15/19 07:35 Myelocytes % 0 % 09/15/19 07:35 Promyelocytes % 0 % 09/15/19 07:35 Blast Cells % 0 % 09/15/19 07:35 Nucleated RBC % 2.0 % (0.0-0.9) H 09/15/19 07:35 Seg Neutrophils # 7.8 K/mm3 (1.8-7.7) H 09/21/19 04:58 Seg Neutrophils # Man 10.9 K/mm3 (1.8-7.7) H 09/15/19 07:35 Band Neutrophils # 0.0 K/mm3 09/15/19 07:35 Lymphocytes # (Manual) 0.6 K/mm3 (1.2-5.4) L 09/15/19 07:35 Abs React Lymphs (Man) 0.0 K/mm3 09/15/19 07:35 Monocytes # (Manual) 0.2 K/mm3 (0.0-0.8) 09/15/19 07:35 Eosinophils # (Manual) 0.0 K/mm3 (0.0-0.4) 09/15/19 07:35 Basophils # (Manual) 0.0 K/mm3 (0.0-0.1) 09/15/19 07:35 Metamyelocytes # 0.2 K/mm3 09/15/19 07:35 Myelocytes # 0.0 K/mm3 09/15/19 07:35 Promyelocytes # 0.0 K/mm3 09/15/19 07:35 Blast Cells # 0.0 K/mm3 09/15/19 07:35 WBC Morphology Not Reportable 09/15/19 07:35 Hypersegmented Neuts Not Reportable 09/15/19 07:35 Hyposegmented Neuts Not Reportable 09/15/19 07:35 Hypogranular Neuts Not Reportable 09/15/19 07:35 Smudge Cells Not Reportable 09/15/19 07:35 Toxic Granulation Not Reportable 09/15/19 07:35 Toxic Vacuolation Not Reportable 09/15/19 07:35 Dohle Bodies Not Reportable 09/15/19 07:35 Pelger-Huet Anomaly Not Reportable 09/15/19 07:35 Antione Rods Not Reportable 09/15/19 07:35 Platelet Estimate Consistent w auto 09/15/19 07:35 Clumped Platelets Not Reportable 09/15/19 07:35 Plt Clumps, EDTA Not Reportable 09/15/19 07:35 Large Platelets Rare 09/15/19 07:35 Giant Platelets Not Reportable 09/15/19 07:35 Platelet Satelliting Not Reportable 09/15/19 07:35 Plt Morphology Comment Not Reportable 09/15/19 07:35 RBC Morphology Not Reportable 09/15/19 07:35 Dimorphic RBCs Not Reportable 09/15/19 07:35 Polychromasia Not Reportable 09/15/19 07:35 Hypochromasia 1+ 09/15/19 07:35 Poikilocytosis Not Reportable 09/15/19 07:35 Anisocytosis Few 09/15/19 07:35 Microcytosis Not Reportable 09/15/19 07:35 Macrocytosis Not Reportable 09/15/19 07:35 Spherocytes Not Reportable 09/15/19 07:35 Pappenheimer Bodies Not Reportable 09/15/19 07:35 Sickle Cells Not Reportable 09/15/19 07:35 Target Cells Not Reportable 09/15/19 07:35 Tear Drop Cells Not Reportable 09/15/19 07:35 Ovalocytes Not Reportable 09/15/19 07:35 Helmet Cells Not Reportable 09/15/19 07:35 [place] Bodies Not Reportable 09/15/19 07:35 [place] Rings Not Reportable 09/15/19 07:35 Mike Cells Not Reportable 09/15/19 07:35 Bite Cells Not Reportable 09/15/19 07:35 Crenated Cell Not Reportable 09/15/19 07:35 Elliptocytes Not Reportable 09/15/19 07:35 Acanthocytes (Spur) Not Reportable 09/15/19 07:35 Rouleaux Not Reportable 09/15/19 07:35 Hemoglobin C Crystals Not Reportable 09/15/19 07:35 Schistocytes Not Reportable 09/15/19 07:35 Malaria parasites Not Reportable 09/15/19 07:35 [place] Bodies Not Reportable 09/15/19 07:35 Hem Pathologist Commnt No 09/15/19 07:35 PT 13.3 Sec. (12.2-14.9) 09/14/19 12:43 INR 1.02 (0.87-1.13) 09/14/19 12:43 APTT 27.5 Sec. (24.2-36.6) 09/14/19 12:43 POC ABG pH 7.412 (7.35-7.45) 09/26/19 13:22 POC ABG pO2 92 (80-105) 09/26/19 13:22 POC ABG HCO3 54.5 (22-26 mml/L) 09/26/19 13:22 POC ABG Total CO2 > 50 (23-27mmol/L) 09/26/19 13:22 POC ABG O2 Sat 96 09/26/19 13:22 POC ABG Base Excess 30 ((-2) - (+3)mmol/L) 09/26/19 13:22 FiO2 55 % 09/26/19 13:22 Sodium 140 mmol/L (137-145) 09/24/19 07:43 Potassium 3.9 mmol/L (3.6-5.0) 09/24/19 07:43 Chloride 87.7 mmol/L (98-107) L 09/24/19 07:43 Carbon Dioxide 39 mmol/L (22-30) H D 09/24/19 07:43 Anion Gap 17 mmol/L 09/24/19 07:43 BUN 10 mg/dL (7-17) 09/24/19 07:43 Creatinine 0.4 mg/dL (0.7-1.2) L 09/24/19 07:43 Estimated GFR > 60 ml/min 09/24/19 07:43 BUN/Creatinine Ratio 25 % 09/24/19 07:43 Glucose 100 mg/dL (65-100) 09/24/19 07:43 POC Glucose 114 (70-105) H 09/22/19 22:15 Hemoglobin A1c 5.5 % (4-6) 09/14/19 12:43 Calcium 9.1 mg/dL (8.4-10.2) 09/24/19 07:43 Magnesium 2.30 mg/dL (1.7-2.3) 09/16/19 05:42 Total Bilirubin 0.30 mg/dL (0.1-1.2) 09/16/19 05:42 AST 21 units/L (5-40) 09/16/19 05:42 ALT 11 units/L (7-56) 09/16/19 05:42 Alkaline Phosphatase 57 units/L (35-129) 09/16/19 05:42 Total Creatine Kinase 47 units/L (30-135) 09/14/19 12:43 Troponin T < 0.010 ng/mL (0.00-0.029) 09/14/19 12:43 NT-Pro-B Natriuret Pep 112.7 pg/mL (0-450) 09/14/19 12:43 Total Protein 8.4 g/dL (6.3-8.2) H 09/16/19 05:42 Albumin 3.1 g/dL (3.9-5) L 09/16/19 05:42 Albumin/Globulin Ratio 0.6 % 09/16/19 05:42 Active Medications - Current Medications Current Medications: Generic Name Dose Route Start Last Admin Trade Name Freq PRN Reason Stop Dose Admin Acetaminophen 650 mg 09/14/19 21:37 09/26/19 17:30 Tylenol PO 650 mg Q4H PRN Administration Pain MILD(1-3)/Fever >100.5/DOMINIQUE Albuterol 2.5 mg 09/15/19 16:08 Proventil IH Q4H PRN Shortness Of Breath/ Wheezing Albuterol/Ipratropium 1 ampul 09/15/19 20:00 09/28/19 14:19 Duoneb *Not For Prn Use* IH 1 ampul TIDRT DEMOND Administration Arformoterol Tartrate 15 mcg 09/15/19 20:00 09/28/19 08:48 Brovana Nebu IH 15 mcg Q12HRT DEMOND Administration Budesonide 0.5 mg 09/15/19 20:00 09/28/19 08:48 Pulmicort IH 0.5 mg Q12HRT DEMOND Administration Famotidine 20 mg 09/17/19 10:00 09/28/19 09:11 Pepcid PO 20 mg BID DEMOND Administration Furosemide 40 mg 09/15/19 18:00 09/28/19 05:12 Lasix IV 40 mg 0600,1800 DEMOND Administration Heparin Sodium (Porcine) 5,000 unit 09/26/19 22:00 09/28/19 05:12 Heparin SUB-Q 5,000 unit Q8HR DEMOND Administration Metoclopramide HCl 10 mg 09/14/19 21:37 Reglan IV Q6H PRN Nausea And Vomiting Ondansetron HCl 4 mg 09/14/19 21:37 Zofran IV Q8H PRN Nausea And Vomiting Oxycodone/Acetaminophen 1 tab 09/14/19 21:37 09/28/19 00:53 Percocet 5/325 PO 1 tab Q6H PRN Administration Pain, Moderate (4-6) Sodium Chloride 10 ml 09/14/19 22:00 09/28/19 09:12 Sodium Chloride Flush Syringe 10 Ml IV 10 ml BID DEMOND Administration Sodium Chloride 10 ml 09/14/19 21:37 09/23/19 06:09 Sodium Chloride Flush Syringe 10 Ml IV 10 ml PRN PRN Administration LINE FLUSH Nutrition/Malnutrition Assess - Dietary Evaluation Nutrition/Malnutrition Findings: Nutrition Notes Start: 09/21/19 10:18 Freq: Status: Active Protocol: Document 09/21/19 10:19 CC (Rec: 09/21/19 10:30 CC [id number]) Co-Sign 09/21/19 10:19 LP Nutrition Notes Need for Assessment generated from: LOS Initial or Follow up Assessment Current Diagnosis COPD,Hypertension,Heart Failure Current Diet cardiac Labs/Tests Cl 85.7 Creat 0.5 Pertinent Medications Lasix Height 5 ft 2 in Weight 181.437 kg [place] Body Weight (kg) 50.00 BMI 73.1 Intake Prior to Admission Good Weight Status Morbidly Obese Subjective/Other Information Pt reported her appetite has been good and she has been eating meals in hosptial. Pt had not had heart health diet education previously and was willing to have education. Went over heart health diet with pt and recommendations. Burn Absent Trauma Absent GI Symptoms None Food Allergy No Current % PO Good (75-100%) Minimum of two criteria No physical signs of malnutrition #1 Nutrition Diagnosis Food and nutrition-related knowledge deficit Etiology no prior heart healthy diet education As Evidenced by Signs and Symptoms pt wanting heart healthy education Is patient on ventilator? No Is Patient Ambulatory and/or Out of Bed No REE-([place]-confined to bed) 2938.620 Kcal/Kg value to use for calculation 11 Approximate Energy Requirements Using 1995 kcal/Kg Calculation Used for Recommendations Kcal/kg Additional Notes PRO: 93-115g/day (0.8-1.0g/kg AdBW 115.7kg) Fluid: 1ml/kcal Nutrition Intervention Change Diet Order: contiune cardiac Teaching Recipient Patient Learning Readiness Good Teaching Methods Discussion,Handout Response to Teaching Verbalize understanding Education Handouts Provided Heart Healthy Eating Nutrition Therapy Barriers to Learning No Barriers RD phone number provided Yes Patient aware of follow up options Yes Anticipated Discharge Needs: cardiac diet Revisit per MD consult or patient Sign Off request:
[2019-09-29] MEDS: FUROSEMIDE 40 MG/4 ML INJ IV SCH ×2 (05:05→18:13)
[2019-09-29] MEDS: HEPARIN 5,000 UNIT/1 ML VIAL SUB-Q SCH ×3 (05:05→22:13)
[2019-09-29] MEDS: BUDESONIDE 0.5 MG/2 ML NEBU IH SCH ×2 (10:21→20:43)
[2019-09-29] MEDS: ARFORMOTEROL 15 MCG/2 ML NEBU IH SCH ×2 (10:21→20:44)
[2019-09-29] MEDS: IPRATROPIUM/ALBUTEROL SULFATE 3 ML AMPUL.NEB IH SCH ×3 (10:27→20:43)
[2019-09-29] MEDS: FAMOTIDINE 20 MG TAB PO SCH ×2 (11:31→22:13)
--- NOTE | 2019-09-29 12:19 | Progress Note ---
Assessment and Plan 39 y/o morbidly obese female with acute on chronic respiratory failure ELLY and OHS 1. Down to manageable amount of home nasal cannula 2. Needs PPV at night 3. ONce home situation has been addressed no objection to discharge. 4. Can follow up in the office. Subjective Date of service: 09/29/19 Principal diagnosis: A/C respiratory failure Interval history: No acute events. Awaiting [facility] approval Objective Vital Signs - 12hr 09/29/19 09/29/19 04:35 04:39 Temperature 97.5 F L Pulse Rate 84 Respiratory 20 Rate Blood Pressure 146/85 O2 Sat by Pulse 91 Oximetry Constitutional: no acute distress, other (morbidly obese) Eyes: non-icteric Neck: other (extremely large in circumference) Effort: normal Ascultation: Bilateral: diminished breath sounds (secondary to body habitus) Percussion: Bilateral: not dull Tactile fremitus: Bilateral: diminished Cardiovascular: regular rate and rhythm Gastrointestinal: normoactive bowel sounds, non-tender, non-distended, other (morbidly obese) Integumentary: normal Extremities: no cyanosis, pink and warm Neurologic: normal mental status, non-focal exam, pupils equal and round Psychiatric: mood appropriate, affect normal CBC and BMP: 09/21/19 04:58 09/24/19 07:43 ABG, PT/INR, D-dimer: ABG POC ABG pH 7.412 (7.35-7.45) 09/26/19 13:22 POC ABG pO2 92 (80-105) 09/26/19 13:22 POC ABG HCO3 54.5 (22-26 mml/L) 09/26/19 13:22 POC ABG Total CO2 > 50 (23-27mmol/L) 09/26/19 13:22 POC ABG O2 Sat 96 09/26/19 13:22 PT/INR, D-dimer PT 13.3 Sec. (12.2-14.9) 09/14/19 12:43 INR 1.02 (0.87-1.13) 09/14/19 12:43 Abnormal lab findings: Abnormal Labs 09/14/19 09/14/19 09/14/19 12:43 12:43 13:44 WBC 11.4 H Hgb MCH 24 L MCHC 29 L RDW 18.2 H Lymph % (Auto) Eos % (Auto) Lymph # Eos # Seg Neutrophils % Seg Neuts % (Manual) 84.0 H Lymphocytes % (Manual) 11.0 L Nucleated RBC % 3.0 H Seg Neutrophils # Seg Neutrophils # Man 9.6 H Lymphocytes # (Manual) POC ABG pH 7.207 L POC ABG pO2 59 L Sodium Potassium Chloride 88.5 L Carbon Dioxide 44 H* Creatinine 0.4 L Glucose POC Glucose Total Protein 9.0 H Albumin 3.4 L 09/14/19 09/15/19 09/15/19 13:58 07:35 07:35 WBC 12.0 H Hgb 9.7 L MCH 24 L MCHC 29 L RDW 18.0 H Lymph % (Auto) Eos % (Auto) Lymph # Eos # Seg Neutrophils % Seg Neuts % (Manual) 91.0 H Lymphocytes % (Manual) 5.0 L Nucleated RBC % 2.0 H Seg Neutrophils # Seg Neutrophils # Man 10.9 H Lymphocytes # (Manual) 0.6 L POC ABG pH 7.212 L POC ABG pO2 55 L Sodium 146 H Potassium 5.2 H Chloride 88.7 L Carbon Dioxide 49 H* Creatinine 0.4 L Glucose 101 H POC Glucose Total Protein Albumin 3.3 L 09/16/19 09/16/19 09/16/19 05:42 05:42 12:55 WBC Hgb MCH 25 L MCHC RDW 18.0 H Lymph % (Auto) 6.2 L Eos % (Auto) Lymph # 0.6 L Eos # Seg Neutrophils % 89.0 H Seg Neuts % (Manual) Lymphocytes % (Manual) Nucleated RBC % Seg Neutrophils # 9.2 H Seg Neutrophils # Man Lymphocytes # (Manual) POC ABG pH POC ABG pO2 Sodium Potassium 5.6 H Chloride 86.8 L Carbon Dioxide 50 H* Creatinine 0.4 L Glucose 117 H POC Glucose 146 H Total Protein 8.4 H Albumin 3.1 L 09/16/19 09/17/19 09/18/19 18:07 06:52 05:45 WBC Hgb MCH MCHC RDW Lymph % (Auto) Eos % (Auto) Lymph # Eos # Seg Neutrophils % Seg Neuts % (Manual) Lymphocytes % (Manual) Nucleated RBC % Seg Neutrophils # Seg Neutrophils # Man Lymphocytes # (Manual) POC ABG pH POC ABG pO2 Sodium Potassium 5.1 H D Chloride 82.4 L 85.9 L Carbon Dioxide 52 H* 44 H* D Creatinine 0.5 L 0.4 L Glucose POC Glucose 135 H Total Protein Albumin 09/21/19 09/21/19 09/22/19 04:58 04:58 22:15 WBC Hgb MCH 24 L MCHC RDW 17.9 H Lymph % (Auto) Eos % (Auto) 4.6 H Lymph # Eos # 0.5 H Seg Neutrophils % 71.1 H Seg Neuts % (Manual) Lymphocytes % (Manual) Nucleated RBC % Seg Neutrophils # 7.8 H Seg Neutrophils # Man Lymphocytes # (Manual) POC ABG pH POC ABG pO2 Sodium Potassium Chloride 85.7 L Carbon Dioxide 50 H* Creatinine 0.5 L Glucose POC Glucose 114 H Total Protein Albumin 09/24/19 07:43 WBC Hgb MCH MCHC RDW Lymph % (Auto) Eos % (Auto) Lymph # Eos # Seg Neutrophils % Seg Neuts % (Manual) Lymphocytes % (Manual) Nucleated RBC % Seg Neutrophils # Seg Neutrophils # Man Lymphocytes # (Manual) POC ABG pH POC ABG pO2 Sodium Potassium Chloride 87.7 L Carbon Dioxide 39 H D Creatinine 0.4 L Glucose POC Glucose Total Protein Albumin
--- NOTE | 2019-09-29 16:54 | Progress Note ---
Assessment and Plan - Patient Problems (1) Acute respiratory failure with hypoxia and hypercarbia Current Visit: Yes Status: Acute Plan to address problem: Patient acute hypoxic respiratory failure continue BiPAP and high flow O2. Trilogy machine ordered to discharge home with. (2) COPD exacerbation Current Visit: Yes Status: Acute Plan to address problem: BiPAP machine in the evening. LABA r and further observation. (3) CHF (congestive heart failure) Current Visit: Yes Status: Chronic Qualifiers: Heart failure type: combined systolic and diastolic Heart failure chronicity: acute on chronic Qualified Code(s): I50.43 - Acute on chronic combined systolic (congestive) and diastolic (congestive) heart failure Plan to address problem: At present appears to be well compensated this time. The majority of present problem is obesity and obesity hyperplasia syndrome. History Interval history: Patient resting comfortably poor historian plan awaiting Trilogy machine. No new events over p.m. 39-year-old morbid obesity obesity hypoventilation syndrome. BMI of 80 to present with chronic respiratory failure 4 L. Hospitalist Physical - Constitutional Vitals: Temp Pulse Resp BP Pulse Ox 97.5 F L 84 20 146/85 91 09/29/19 04:39 09/29/19 04:35 09/29/19 04:35 09/29/19 04:35 09/29/19 04:35 General appearance: Present: well-nourished, obese (morbidly obese). Absent: mild distress - EENT Eyes: Present: PERRL - Neck Neck: Present: supple - Respiratory Respiratory: bilateral: diminished, rales - Cardiovascular Rhythm: regular - Extremities Extremities: no ischemia, pulses intact, pulses symmetrical, normal temperature, normal color Extremity abnormal: edema Peripheral Pulses: within normal limits - Abdominal General gastrointestinal: soft, non-tender, non-distended, other (obese), no hepatomegaly, no splenomegaly - Neurologic Neurologic: CNII-XII intact, focal deficits, moves all extremities Results - Labs CBC & Chem 7: 09/21/19 04:58 09/24/19 07:43 Labs: Laboratory Last Values WBC 11.0 K/mm3 (4.5-11.0) 09/21/19 04:58 RBC 4.60 M/mm3 (3.65-5.03) 09/21/19 04:58 Hgb 11.0 gm/dl (10.1-14.3) 09/21/19 04:58 Hct 37.0 % (30.3-42.9) 09/21/19 04:58 MCV 80 fl (79-97) 09/21/19 04:58 MCH 24 pg (28-32) L 09/21/19 04:58 MCHC 30 % (30-34) 09/21/19 04:58 RDW 17.9 % (13.2-15.2) H 09/21/19 04:58 Plt Count 167 K/mm3 (140-440) 09/21/19 04:58 Lymph % (Auto) 16.9 % (13.4-35.0) 09/21/19 04:58 [place] % (Auto) 6.9 % (0.0-7.3) 09/21/19 04:58 Eos % (Auto) 4.6 % (0.0-4.3) H 09/21/19 04:58 Baso % (Auto) 0.5 % (0.0-1.8) 09/21/19 04:58 Lymph # 1.9 K/mm3 (1.2-5.4) 09/21/19 04:58 [place] # 0.8 K/mm3 (0.0-0.8) 09/21/19 04:58 Eos # 0.5 K/mm3 (0.0-0.4) H 09/21/19 04:58 Baso # 0.1 K/mm3 (0.0-0.1) 09/21/19 04:58 Add Manual Diff Complete 09/15/19 07:35 Total Counted 100 09/15/19 07:35 Seg Neutrophils % 71.1 % (40.0-70.0) H 09/21/19 04:58 Seg Neuts % (Manual) 91.0 % (40.0-70.0) H 09/15/19 07:35 Band Neutrophils % 0 % 09/15/19 07:35 Lymphocytes % (Manual) 5.0 % (13.4-35.0) L 09/15/19 07:35 Reactive Lymphs % (Man) 0 % 09/15/19 07:35 Monocytes % (Manual) 2.0 % (0.0-7.3) 09/15/19 07:35 Eosinophils % (Manual) 0 % (0.0-4.3) 09/15/19 07:35 Basophils % (Manual) 0 % (0.0-1.8) 09/15/19 07:35 Metamyelocytes % 2.0 % 09/15/19 07:35 Myelocytes % 0 % 09/15/19 07:35 Promyelocytes % 0 % 09/15/19 07:35 Blast Cells % 0 % 09/15/19 07:35 Nucleated RBC % 2.0 % (0.0-0.9) H 09/15/19 07:35 Seg Neutrophils # 7.8 K/mm3 (1.8-7.7) H 09/21/19 04:58 Seg Neutrophils # Man 10.9 K/mm3 (1.8-7.7) H 09/15/19 07:35 Band Neutrophils # 0.0 K/mm3 09/15/19 07:35 Lymphocytes # (Manual) 0.6 K/mm3 (1.2-5.4) L 09/15/19 07:35 Abs React Lymphs (Man) 0.0 K/mm3 09/15/19 07:35 Monocytes # (Manual) 0.2 K/mm3 (0.0-0.8) 09/15/19 07:35 Eosinophils # (Manual) 0.0 K/mm3 (0.0-0.4) 09/15/19 07:35 Basophils # (Manual) 0.0 K/mm3 (0.0-0.1) 09/15/19 07:35 Metamyelocytes # 0.2 K/mm3 09/15/19 07:35 Myelocytes # 0.0 K/mm3 09/15/19 07:35 Promyelocytes # 0.0 K/mm3 09/15/19 07:35 Blast Cells # 0.0 K/mm3 09/15/19 07:35 WBC Morphology Not Reportable 09/15/19 07:35 Hypersegmented Neuts Not Reportable 09/15/19 07:35 Hyposegmented Neuts Not Reportable 09/15/19 07:35 Hypogranular Neuts Not Reportable 09/15/19 07:35 Smudge Cells Not Reportable 09/15/19 07:35 Toxic Granulation Not Reportable 09/15/19 07:35 Toxic Vacuolation Not Reportable 09/15/19 07:35 Dohle Bodies Not Reportable 09/15/19 07:35 Pelger-Huet Anomaly Not Reportable 09/15/19 07:35 Antione Rods Not Reportable 09/15/19 07:35 Platelet Estimate Consistent w auto 09/15/19 07:35 Clumped Platelets Not Reportable 09/15/19 07:35 Plt Clumps, EDTA Not Reportable 09/15/19 07:35 Large Platelets Rare 09/15/19 07:35 Giant Platelets Not Reportable 09/15/19 07:35 Platelet Satelliting Not Reportable 09/15/19 07:35 Plt Morphology Comment Not Reportable 09/15/19 07:35 RBC Morphology Not Reportable 09/15/19 07:35 Dimorphic RBCs Not Reportable 09/15/19 07:35 Polychromasia Not Reportable 09/15/19 07:35 Hypochromasia 1+ 09/15/19 07:35 Poikilocytosis Not Reportable 09/15/19 07:35 Anisocytosis Few 09/15/19 07:35 Microcytosis Not Reportable 09/15/19 07:35 Macrocytosis Not Reportable 09/15/19 07:35 Spherocytes Not Reportable 09/15/19 07:35 Pappenheimer Bodies Not Reportable 09/15/19 07:35 Sickle Cells Not Reportable 09/15/19 07:35 Target Cells Not Reportable 09/15/19 07:35 Tear Drop Cells Not Reportable 09/15/19 07:35 Ovalocytes Not Reportable 09/15/19 07:35 Helmet Cells Not Reportable 09/15/19 07:35 [place] Bodies Not Reportable 09/15/19 07:35 [place] Rings Not Reportable 09/15/19 07:35 Mike Cells Not Reportable 09/15/19 07:35 Bite Cells Not Reportable 09/15/19 07:35 Crenated Cell Not Reportable 09/15/19 07:35 Elliptocytes Not Reportable 09/15/19 07:35 Acanthocytes (Spur) Not Reportable 09/15/19 07:35 Rouleaux Not Reportable 09/15/19 07:35 Hemoglobin C Crystals Not Reportable 09/15/19 07:35 Schistocytes Not Reportable 09/15/19 07:35 Malaria parasites Not Reportable 09/15/19 07:35 [place] Bodies Not Reportable 09/15/19 07:35 Hem Pathologist Commnt No 09/15/19 07:35 PT 13.3 Sec. (12.2-14.9) 09/14/19 12:43 INR 1.02 (0.87-1.13) 09/14/19 12:43 APTT 27.5 Sec. (24.2-36.6) 09/14/19 12:43 POC ABG pH 7.412 (7.35-7.45) 09/26/19 13:22 POC ABG pO2 92 (80-105) 09/26/19 13:22 POC ABG HCO3 54.5 (22-26 mml/L) 09/26/19 13:22 POC ABG Total CO2 > 50 (23-27mmol/L) 09/26/19 13:22 POC ABG O2 Sat 96 09/26/19 13:22 POC ABG Base Excess 30 ((-2) - (+3)mmol/L) 09/26/19 13:22 FiO2 55 % 09/26/19 13:22 Sodium 140 mmol/L (137-145) 09/24/19 07:43 Potassium 3.9 mmol/L (3.6-5.0) 09/24/19 07:43 Chloride 87.7 mmol/L (98-107) L 09/24/19 07:43 Carbon Dioxide 39 mmol/L (22-30) H D 09/24/19 07:43 Anion Gap 17 mmol/L 09/24/19 07:43 BUN 10 mg/dL (7-17) 09/24/19 07:43 Creatinine 0.4 mg/dL (0.7-1.2) L 09/24/19 07:43 Estimated GFR > 60 ml/min 09/24/19 07:43 BUN/Creatinine Ratio 25 % 09/24/19 07:43 Glucose 100 mg/dL (65-100) 09/24/19 07:43 POC Glucose 114 (70-105) H 09/22/19 22:15 Hemoglobin A1c 5.5 % (4-6) 09/14/19 12:43 Calcium 9.1 mg/dL (8.4-10.2) 09/24/19 07:43 Magnesium 2.30 mg/dL (1.7-2.3) 09/16/19 05:42 Total Bilirubin 0.30 mg/dL (0.1-1.2) 09/16/19 05:42 AST 21 units/L (5-40) 09/16/19 05:42 ALT 11 units/L (7-56) 09/16/19 05:42 Alkaline Phosphatase 57 units/L (35-129) 09/16/19 05:42 Total Creatine Kinase 47 units/L (30-135) 09/14/19 12:43 Troponin T < 0.010 ng/mL (0.00-0.029) 09/14/19 12:43 NT-Pro-B Natriuret Pep 112.7 pg/mL (0-450) 09/14/19 12:43 Total Protein 8.4 g/dL (6.3-8.2) H 09/16/19 05:42 Albumin 3.1 g/dL (3.9-5) L 09/16/19 05:42 Albumin/Globulin Ratio 0.6 % 09/16/19 05:42 Active Medications - Current Medications Current Medications: Generic Name Dose Route Start Last Admin Trade Name Freq PRN Reason Stop Dose Admin Acetaminophen 650 mg 09/14/19 21:37 09/26/19 17:30 Tylenol PO 650 mg Q4H PRN Administration Pain MILD(1-3)/Fever >100.5/DOMINIQUE Albuterol 2.5 mg 09/15/19 16:08 Proventil IH Q4H PRN Shortness Of Breath/ Wheezing Albuterol/Ipratropium 1 ampul 09/15/19 20:00 09/29/19 16:07 Duoneb *Not For Prn Use* IH 1 ampul TIDRT DEMOND Administration Arformoterol Tartrate 15 mcg 09/15/19 20:00 09/29/19 10:21 Brovana Nebu IH 15 mcg Q12HRT DEMOND Administration Budesonide 0.5 mg 09/15/19 20:00 09/29/19 10:21 Pulmicort IH 0.5 mg Q12HRT DEMOND Administration Famotidine 20 mg 09/17/19 10:00 09/29/19 11:31 Pepcid PO 20 mg BID DEMOND Administration Furosemide 40 mg 09/15/19 18:00 09/29/19 05:05 Lasix IV 40 mg 0600,1800 DEMOND Administration Heparin Sodium (Porcine) 5,000 unit 09/26/19 22:00 09/29/19 14:19 Heparin SUB-Q 5,000 unit Q8HR DEMOND Administration Metoclopramide HCl 10 mg 09/14/19 21:37 Reglan IV Q6H PRN Nausea And Vomiting Ondansetron HCl 4 mg 09/14/19 21:37 Zofran IV Q8H PRN Nausea And Vomiting Oxycodone/Acetaminophen 1 tab 09/14/19 21:37 09/28/19 23:27 Percocet 5/325 PO 1 tab Q6H PRN Administration Pain, Moderate (4-6) Sodium Chloride 10 ml 09/14/19 22:00 09/29/19 11:31 Sodium Chloride Flush Syringe 10 Ml IV 10 ml BID DEMOND Administration Sodium Chloride 10 ml 09/14/19 21:37 09/23/19 06:09 Sodium Chloride Flush Syringe 10 Ml IV 10 ml PRN PRN Administration LINE FLUSH Nutrition/Malnutrition Assess - Dietary Evaluation Nutrition/Malnutrition Findings: Nutrition Notes Start: 09/21/19 10:18 Freq: Status: Active Protocol: Document 09/21/19 10:19 CC (Rec: 09/21/19 10:30 CC [email or web address]) Co-Sign 09/21/19 10:19 LP Nutrition Notes Need for Assessment generated from: LOS Initial or Follow up Assessment Current Diagnosis COPD,Hypertension,Heart Failure Current Diet cardiac Labs/Tests Cl 85.7 Creat 0.5 Pertinent Medications Lasix Height 5 ft 2 in Weight 181.437 kg Silver Body Weight (kg) 50.00 BMI 73.1 Intake Prior to Admission Good Weight Status Morbidly Obese Subjective/Other Information Pt reported her appetite has been good and she has been eating meals in hosptial. Pt had not had heart health diet education previously and was willing to have education. Went over heart health diet with pt and recommendations. Burn Absent Trauma Absent GI Symptoms None Food Allergy No Current % PO Good (75-100%) Minimum of two criteria No physical signs of malnutrition #1 Nutrition Diagnosis Food and nutrition-related knowledge deficit Etiology no prior heart healthy diet education As Evidenced by Signs and Symptoms pt wanting heart healthy education Is patient on ventilator? No Is Patient Ambulatory and/or Out of Bed No REE-(Lambert-StAlan Hurt-confined to bed) 2938.620 Kcal/Kg value to use for calculation 11 Approximate Energy Requirements Using 1996 kcal/Kg Calculation Used for Recommendations Kcal/kg Additional Notes PRO: 93-115g/day (0.8-1.0g/kg AdBW 115.7kg) Fluid: 1ml/kcal Nutrition Intervention Change Diet Order: contiune cardiac Teaching Recipient Patient Learning Readiness Good Teaching Methods Discussion,Handout Response to Teaching Verbalize understanding Education Handouts Provided Heart Healthy Eating Nutrition Therapy Barriers to Learning No Barriers RD phone number provided Yes Patient aware of follow up options Yes Anticipated Discharge Needs: cardiac diet Revisit per MD consult or patient Sign Off request:
[2019-09-29] MEDS: oxyCODONE /ACETAMINOPHEN 5-325MG TAB PO PRN (22:13)
[2019-09-30] MEDS: FUROSEMIDE 40 MG/4 ML INJ IV SCH ×2 (05:02→17:34)
[2019-09-30] MEDS: HEPARIN 5,000 UNIT/1 ML VIAL SUB-Q SCH ×3 (05:03→21:59)
[2019-09-30] MEDS: IPRATROPIUM/ALBUTEROL SULFATE 3 ML AMPUL.NEB IH SCH ×3 (07:54→21:03)
[2019-09-30] MEDS: ARFORMOTEROL 15 MCG/2 ML NEBU IH SCH ×2 (07:54→21:03)
[2019-09-30] MEDS: BUDESONIDE 0.5 MG/2 ML NEBU IH SCH ×2 (07:54→21:03)
[2019-09-30] MEDS: FAMOTIDINE 20 MG TAB PO SCH ×2 (09:16→21:59)
--- NOTE | 2019-09-30 10:51 | Progress Note ---
Assessment and Plan 39 y/o morbidly obese female with acute on chronic respiratory failure ELLY and OHS No new recs, please see below. Will see PRN. 1. Down to manageable amount of home nasal cannula 2. Needs PPV at night 3. ONce home situation has been addressed no objection to discharge. 4. Can follow up in the office. Subjective Date of service: 09/30/19 Principal diagnosis: A/C respiratory failure Interval history: No acute events. Still awaiting NIV approval. Objective Vital Signs - 12hr 09/29/19 09/29/19 09/30/19 23:42 23:50 00:00 Temperature 98.7 F Pulse Rate 93 H 96 H Pulse Rate [ Anterior Bilateral Throughout] Respiratory 20 Rate Respiratory Rate [Anterior Bilateral Throughout] Blood Pressure 118/59 O2 Sat by Pulse 95 Oximetry 09/30/19 09/30/19 09/30/19 00:02 04:51 04:53 Temperature 98.6 F Pulse Rate 81 86 Pulse Rate [ Anterior Bilateral Throughout] Respiratory 22 20 Rate Respiratory Rate [Anterior Bilateral Throughout] Blood Pressure 138/80 O2 Sat by Pulse 97 91 Oximetry 09/30/19 09/30/19 07:50 09:45 Temperature Pulse Rate Pulse Rate [ 86 Anterior Bilateral Throughout] Respiratory Rate Respiratory 18 Rate [Anterior Bilateral Throughout] Blood Pressure O2 Sat by Pulse 95 Oximetry Constitutional: no acute distress, other (morbidly obese) Eyes: non-icteric Neck: other (extremely large in circumference) Effort: normal Ascultation: Bilateral: diminished breath sounds (secondary to body habitus) Percussion: Bilateral: not dull Tactile fremitus: Bilateral: diminished Cardiovascular: regular rate and rhythm Gastrointestinal: normoactive bowel sounds, non-tender, non-distended, other (morbidly obese) Integumentary: normal Extremities: no cyanosis, pink and warm Neurologic: normal mental status, non-focal exam, pupils equal and round Psychiatric: mood appropriate, affect normal CBC and BMP: 09/21/19 04:58 09/24/19 07:43 ABG, PT/INR, D-dimer: ABG POC ABG pH 7.412 (7.35-7.45) 09/26/19 13:22 POC ABG pO2 92 (80-105) 09/26/19 13:22 POC ABG HCO3 54.5 (22-26 mml/L) 09/26/19 13:22 POC ABG Total CO2 > 50 (23-27mmol/L) 09/26/19 13:22 POC ABG O2 Sat 96 09/26/19 13:22 PT/INR, D-dimer PT 13.3 Sec. (12.2-14.9) 09/14/19 12:43 INR 1.02 (0.87-1.13) 09/14/19 12:43 Abnormal lab findings: Abnormal Labs 09/14/19 09/14/19 09/14/19 12:43 12:43 13:44 WBC 11.4 H Hgb MCH 24 L MCHC 29 L RDW 18.2 H Lymph % (Auto) Eos % (Auto) Lymph # Eos # Seg Neutrophils % Seg Neuts % (Manual) 84.0 H Lymphocytes % (Manual) 11.0 L Nucleated RBC % 3.0 H Seg Neutrophils # Seg Neutrophils # Man 9.6 H Lymphocytes # (Manual) POC ABG pH 7.207 L POC ABG pO2 59 L Sodium Potassium Chloride 88.5 L Carbon Dioxide 44 H* Creatinine 0.4 L Glucose POC Glucose Total Protein 9.0 H Albumin 3.4 L 09/14/19 09/15/19 09/15/19 13:58 07:35 07:35 WBC 12.0 H Hgb 9.7 L MCH 24 L MCHC 29 L RDW 18.0 H Lymph % (Auto) Eos % (Auto) Lymph # Eos # Seg Neutrophils % Seg Neuts % (Manual) 91.0 H Lymphocytes % (Manual) 5.0 L Nucleated RBC % 2.0 H Seg Neutrophils # Seg Neutrophils # Man 10.9 H Lymphocytes # (Manual) 0.6 L POC ABG pH 7.212 L POC ABG pO2 55 L Sodium 146 H Potassium 5.2 H Chloride 88.7 L Carbon Dioxide 49 H* Creatinine 0.4 L Glucose 101 H POC Glucose Total Protein Albumin 3.3 L 09/16/19 09/16/19 09/16/19 05:42 05:42 12:55 WBC Hgb MCH 25 L MCHC RDW 18.0 H Lymph % (Auto) 6.2 L Eos % (Auto) Lymph # 0.6 L Eos # Seg Neutrophils % 89.0 H Seg Neuts % (Manual) Lymphocytes % (Manual) Nucleated RBC % Seg Neutrophils # 9.2 H Seg Neutrophils # Man Lymphocytes # (Manual) POC ABG pH POC ABG pO2 Sodium Potassium 5.6 H Chloride 86.8 L Carbon Dioxide 50 H* Creatinine 0.4 L Glucose 117 H POC Glucose 146 H Total Protein 8.4 H Albumin 3.1 L 09/16/19 09/17/19 09/18/19 18:07 06:52 05:45 WBC Hgb MCH MCHC RDW Lymph % (Auto) Eos % (Auto) Lymph # Eos # Seg Neutrophils % Seg Neuts % (Manual) Lymphocytes % (Manual) Nucleated RBC % Seg Neutrophils # Seg Neutrophils # Man Lymphocytes # (Manual) POC ABG pH POC ABG pO2 Sodium Potassium 5.1 H D Chloride 82.4 L 85.9 L Carbon Dioxide 52 H* 44 H* D Creatinine 0.5 L 0.4 L Glucose POC Glucose 135 H Total Protein Albumin 09/21/19 09/21/19 09/22/19 04:58 04:58 22:15 WBC Hgb MCH 24 L MCHC RDW 17.9 H Lymph % (Auto) Eos % (Auto) 4.6 H Lymph # Eos # 0.5 H Seg Neutrophils % 71.1 H Seg Neuts % (Manual) Lymphocytes % (Manual) Nucleated RBC % Seg Neutrophils # 7.8 H Seg Neutrophils # Man Lymphocytes # (Manual) POC ABG pH POC ABG pO2 Sodium Potassium Chloride 85.7 L Carbon Dioxide 50 H* Creatinine 0.5 L Glucose POC Glucose 114 H Total Protein Albumin 09/24/19 07:43 WBC Hgb MCH MCHC RDW Lymph % (Auto) Eos % (Auto) Lymph # Eos # Seg Neutrophils % Seg Neuts % (Manual) Lymphocytes % (Manual) Nucleated RBC % Seg Neutrophils # Seg Neutrophils # Man Lymphocytes # (Manual) POC ABG pH POC ABG pO2 Sodium Potassium Chloride 87.7 L Carbon Dioxide 39 H D Creatinine 0.4 L Glucose POC Glucose Total Protein Albumin
--- NOTE | 2019-09-30 15:15 | Progress Note ---
Assessment and Plan - Patient Problems (1) Acute respiratory failure with hypoxia and hypercarbia Current Visit: Yes Status: Acute Plan to address problem: Patient acute hypoxic respiratory failure continue BiPAP and high flow O2. Trilogy machine ordered to discharge home with. (2) COPD exacerbation Current Visit: Yes Status: Acute Plan to address problem: BiPAP machine in the evening. LABA r and further observation. (3) CHF (congestive heart failure) Current Visit: Yes Status: Chronic Qualifiers: Heart failure type: combined systolic and diastolic Heart failure chronicity: acute on chronic Qualified Code(s): I50.43 - Acute on chronic combined systolic (congestive) and diastolic (congestive) heart failure Plan to address problem: Very well compensated Only edema was most likely obesity at this point. History Interval history: Patient alert states she was to get up and attempt to take a bath shower sit up the side of bed. States her breathing is improved. Awaiting Trilogy machine has been approved. Hospitalist Physical - Constitutional Vitals: Temp Pulse Resp BP Pulse Ox 98.6 F 85 18 138/80 95 09/30/19 04:53 09/30/19 14:44 09/30/19 14:44 09/30/19 04:51 09/30/19 09:45 General appearance: Present: well-nourished, obese (morbidly obese). Absent: mild distress - EENT Eyes: Present: PERRL, EOM intact ENT: hearing intact, clear oral mucosa, dentition normal - Neck Neck: Present: supple, normal ROM. Absent: enlarged thyroid, masses or JVD, carotid bruits - Respiratory Respiratory: bilateral: diminished - Cardiovascular Rhythm: regular - Extremities Extremities: no ischemia, pulses intact, pulses symmetrical, normal temperature, normal color Extremity abnormal: edema Peripheral Pulses: within normal limits - Abdominal General gastrointestinal: soft, non-tender, normal bowel sounds, other (obese) - Integumentary Integumentary: Present: clear, warm, dry. Absent: jaundice, rash, clammy - Psychiatric Psychiatric: appropriate mood/affect, intact judgment & insight - Neurologic Neurologic: CNII-XII intact, focal deficits, moves all extremities Results - Labs CBC & Chem 7: 09/21/19 04:58 09/24/19 07:43 Labs: Laboratory Last Values WBC 11.0 K/mm3 (4.5-11.0) 09/21/19 04:58 RBC 4.60 M/mm3 (3.65-5.03) 09/21/19 04:58 Hgb 11.0 gm/dl (10.1-14.3) 09/21/19 04:58 Hct 37.0 % (30.3-42.9) 09/21/19 04:58 MCV 80 fl (79-97) 09/21/19 04:58 MCH 24 pg (28-32) L 09/21/19 04:58 MCHC 30 % (30-34) 09/21/19 04:58 RDW 17.9 % (13.2-15.2) H 09/21/19 04:58 Plt Count 167 K/mm3 (140-440) 09/21/19 04:58 Lymph % (Auto) 16.9 % (13.4-35.0) 09/21/19 04:58 [place] % (Auto) 6.9 % (0.0-7.3) 09/21/19 04:58 Eos % (Auto) 4.6 % (0.0-4.3) H 09/21/19 04:58 Baso % (Auto) 0.5 % (0.0-1.8) 09/21/19 04:58 Lymph # 1.9 K/mm3 (1.2-5.4) 09/21/19 04:58 [place] # 0.8 K/mm3 (0.0-0.8) 09/21/19 04:58 Eos # 0.5 K/mm3 (0.0-0.4) H 09/21/19 04:58 Baso # 0.1 K/mm3 (0.0-0.1) 09/21/19 04:58 Add Manual Diff Complete 09/15/19 07:35 Total Counted 100 09/15/19 07:35 Seg Neutrophils % 71.1 % (40.0-70.0) H 09/21/19 04:58 Seg Neuts % (Manual) 91.0 % (40.0-70.0) H 09/15/19 07:35 Band Neutrophils % 0 % 09/15/19 07:35 Lymphocytes % (Manual) 5.0 % (13.4-35.0) L 09/15/19 07:35 Reactive Lymphs % (Man) 0 % 09/15/19 07:35 Monocytes % (Manual) 2.0 % (0.0-7.3) 09/15/19 07:35 Eosinophils % (Manual) 0 % (0.0-4.3) 09/15/19 07:35 Basophils % (Manual) 0 % (0.0-1.8) 09/15/19 07:35 Metamyelocytes % 2.0 % 09/15/19 07:35 Myelocytes % 0 % 09/15/19 07:35 Promyelocytes % 0 % 09/15/19 07:35 Blast Cells % 0 % 09/15/19 07:35 Nucleated RBC % 2.0 % (0.0-0.9) H 09/15/19 07:35 Seg Neutrophils # 7.8 K/mm3 (1.8-7.7) H 09/21/19 04:58 Seg Neutrophils # Man 10.9 K/mm3 (1.8-7.7) H 09/15/19 07:35 Band Neutrophils # 0.0 K/mm3 09/15/19 07:35 Lymphocytes # (Manual) 0.6 K/mm3 (1.2-5.4) L 09/15/19 07:35 Abs React Lymphs (Man) 0.0 K/mm3 09/15/19 07:35 Monocytes # (Manual) 0.2 K/mm3 (0.0-0.8) 09/15/19 07:35 Eosinophils # (Manual) 0.0 K/mm3 (0.0-0.4) 09/15/19 07:35 Basophils # (Manual) 0.0 K/mm3 (0.0-0.1) 09/15/19 07:35 Metamyelocytes # 0.2 K/mm3 09/15/19 07:35 Myelocytes # 0.0 K/mm3 09/15/19 07:35 Promyelocytes # 0.0 K/mm3 09/15/19 07:35 Blast Cells # 0.0 K/mm3 09/15/19 07:35 WBC Morphology Not Reportable 09/15/19 07:35 Hypersegmented Neuts Not Reportable 09/15/19 07:35 Hyposegmented Neuts Not Reportable 09/15/19 07:35 Hypogranular Neuts Not Reportable 09/15/19 07:35 Smudge Cells Not Reportable 09/15/19 07:35 Toxic Granulation Not Reportable 09/15/19 07:35 Toxic Vacuolation Not Reportable 09/15/19 07:35 Dohle Bodies Not Reportable 09/15/19 07:35 Pelger-Huet Anomaly Not Reportable 09/15/19 07:35 Antione Rods Not Reportable 09/15/19 07:35 Platelet Estimate Consistent w auto 09/15/19 07:35 Clumped Platelets Not Reportable 09/15/19 07:35 Plt Clumps, EDTA Not Reportable 09/15/19 07:35 Large Platelets Rare 09/15/19 07:35 Giant Platelets Not Reportable 09/15/19 07:35 Platelet Satelliting Not Reportable 09/15/19 07:35 Plt Morphology Comment Not Reportable 09/15/19 07:35 RBC Morphology Not Reportable 09/15/19 07:35 Dimorphic RBCs Not Reportable 09/15/19 07:35 Polychromasia Not Reportable 09/15/19 07:35 Hypochromasia 1+ 09/15/19 07:35 Poikilocytosis Not Reportable 09/15/19 07:35 Anisocytosis Few 09/15/19 07:35 Microcytosis Not Reportable 09/15/19 07:35 Macrocytosis Not Reportable 09/15/19 07:35 Spherocytes Not Reportable 09/15/19 07:35 Pappenheimer Bodies Not Reportable 09/15/19 07:35 Sickle Cells Not Reportable 09/15/19 07:35 Target Cells Not Reportable 09/15/19 07:35 Tear Drop Cells Not Reportable 09/15/19 07:35 Ovalocytes Not Reportable 09/15/19 07:35 Helmet Cells Not Reportable 09/15/19 07:35 Chung-Sheldahl Bodies Not Reportable 09/15/19 07:35 [place] Rings Not Reportable 09/15/19 07:35 Mike Cells Not Reportable 09/15/19 07:35 Bite Cells Not Reportable 09/15/19 07:35 Crenated Cell Not Reportable 09/15/19 07:35 Elliptocytes Not Reportable 09/15/19 07:35 Acanthocytes (Spur) Not Reportable 09/15/19 07:35 Rouleaux Not Reportable 09/15/19 07:35 Hemoglobin C Crystals Not Reportable 09/15/19 07:35 Schistocytes Not Reportable 09/15/19 07:35 Malaria parasites Not Reportable 09/15/19 07:35 Roldan Bodies Not Reportable 09/15/19 07:35 Hem Pathologist Commnt No 09/15/19 07:35 PT 13.3 Sec. (12.2-14.9) 09/14/19 12:43 INR 1.02 (0.87-1.13) 09/14/19 12:43 APTT 27.5 Sec. (24.2-36.6) 09/14/19 12:43 POC ABG pH 7.412 (7.35-7.45) 09/26/19 13:22 POC ABG pO2 92 (80-105) 09/26/19 13:22 POC ABG HCO3 54.5 (22-26 mml/L) 09/26/19 13:22 POC ABG Total CO2 > 50 (23-27mmol/L) 09/26/19 13:22 POC ABG O2 Sat 96 09/26/19 13:22 POC ABG Base Excess 30 ((-2) - (+3)mmol/L) 09/26/19 13:22 FiO2 55 % 09/26/19 13:22 Sodium 140 mmol/L (137-145) 09/24/19 07:43 Potassium 3.9 mmol/L (3.6-5.0) 09/24/19 07:43 Chloride 87.7 mmol/L (98-107) L 09/24/19 07:43 Carbon Dioxide 39 mmol/L (22-30) H D 09/24/19 07:43 Anion Gap 17 mmol/L 09/24/19 07:43 BUN 10 mg/dL (7-17) 09/24/19 07:43 Creatinine 0.4 mg/dL (0.7-1.2) L 09/24/19 07:43 Estimated GFR > 60 ml/min 09/24/19 07:43 BUN/Creatinine Ratio 25 % 09/24/19 07:43 Glucose 100 mg/dL (65-100) 09/24/19 07:43 POC Glucose 114 (70-105) H 09/22/19 22:15 Hemoglobin A1c 5.5 % (4-6) 09/14/19 12:43 Calcium 9.1 mg/dL (8.4-10.2) 09/24/19 07:43 Magnesium 2.30 mg/dL (1.7-2.3) 09/16/19 05:42 Total Bilirubin 0.30 mg/dL (0.1-1.2) 09/16/19 05:42 AST 21 units/L (5-40) 09/16/19 05:42 ALT 11 units/L (7-56) 09/16/19 05:42 Alkaline Phosphatase 57 units/L (35-129) 09/16/19 05:42 Total Creatine Kinase 47 units/L (30-135) 09/14/19 12:43 Troponin T < 0.010 ng/mL (0.00-0.029) 09/14/19 12:43 NT-Pro-B Natriuret Pep 112.7 pg/mL (0-450) 09/14/19 12:43 Total Protein 8.4 g/dL (6.3-8.2) H 09/16/19 05:42 Albumin 3.1 g/dL (3.9-5) L 09/16/19 05:42 Albumin/Globulin Ratio 0.6 % 09/16/19 05:42 Active Medications - Current Medications Current Medications: Generic Name Dose Route Start Last Admin Trade Name Freq PRN Reason Stop Dose Admin Acetaminophen 650 mg 09/14/19 21:37 09/26/19 17:30 Tylenol PO 650 mg Q4H PRN Administration Pain MILD(1-3)/Fever >100.5/DOMINIQUE Albuterol 2.5 mg 09/15/19 16:08 Proventil IH Q4H PRN Shortness Of Breath/ Wheezing Albuterol/Ipratropium 1 ampul 09/15/19 20:00 09/30/19 14:37 Duoneb *Not For Prn Use* IH 1 ampul TIDRT DEMOND Administration Arformoterol Tartrate 15 mcg 09/15/19 20:00 09/30/19 07:54 Brovana Nebu IH 15 mcg Q12HRT DEMOND Administration Budesonide 0.5 mg 09/15/19 20:00 09/30/19 07:54 Pulmicort IH 0.5 mg Q12HRT DEMOND Administration Famotidine 20 mg 09/17/19 10:00 09/30/19 09:16 Pepcid PO 20 mg BID DEMOND Administration Furosemide 40 mg 09/15/19 18:00 09/30/19 05:02 Lasix IV 40 mg 0600,1800 DEMOND Administration Heparin Sodium (Porcine) 5,000 unit 09/26/19 22:00 09/30/19 13:50 Heparin SUB-Q 5,000 unit Q8HR DEMOND Administration Metoclopramide HCl 10 mg 09/14/19 21:37 Reglan IV Q6H PRN Nausea And Vomiting Ondansetron HCl 4 mg 09/14/19 21:37 Zofran IV Q8H PRN Nausea And Vomiting Oxycodone/Acetaminophen 1 tab 09/14/19 21:37 09/29/19 22:13 Percocet 5/325 PO 1 tab Q6H PRN Administration Pain, Moderate (4-6) Sodium Chloride 10 ml 09/14/19 22:00 09/30/19 09:17 Sodium Chloride Flush Syringe 10 Ml IV 10 ml BID DEMOND Administration Sodium Chloride 10 ml 09/14/19 21:37 09/23/19 06:09 Sodium Chloride Flush Syringe 10 Ml IV 10 ml PRN PRN Administration LINE FLUSH Nutrition/Malnutrition Assess - Dietary Evaluation Nutrition/Malnutrition Findings: Nutrition Notes Start: 09/21/19 10:18 Freq: Status: Active Protocol: Document 09/21/19 10:19 CC (Rec: 09/21/19 10:30 CC [id number]) Co-Sign 09/21/19 10:19 LP Nutrition Notes Need for Assessment generated from: LOS Initial or Follow up Assessment Current Diagnosis COPD,Hypertension,Heart Failure Current Diet cardiac Labs/Tests Cl 85.7 Creat 0.5 Pertinent Medications Lasix Height 5 ft 2 in Weight 181.437 kg [place] Body Weight (kg) 50.00 BMI 73.1 Intake Prior to Admission Good Weight Status Morbidly Obese Subjective/Other Information Pt reported her appetite has been good and she has been eating meals in hosptial. Pt had not had heart health diet education previously and was willing to have education. Went over heart health diet with pt and recommendations. Burn Absent Trauma Absent GI Symptoms None Food Allergy No Current % PO Good (75-100%) Minimum of two criteria No physical signs of malnutrition #1 Nutrition Diagnosis Food and nutrition-related knowledge deficit Etiology no prior heart healthy diet education As Evidenced by Signs and Symptoms pt wanting heart healthy education Is patient on ventilator? No Is Patient Ambulatory and/or Out of Bed No [facility] 2938.620 Kcal/Kg value to use for calculation 11 Approximate Energy Requirements Using 1995 kcal/Kg Calculation Used for Recommendations Kcal/kg Additional Notes PRO: 93-115g/day (0.8-1.0g/kg AdBW 115.7kg) Fluid: 1ml/kcal Nutrition Intervention Change Diet Order: contiune cardiac Teaching Recipient Patient Learning Readiness Good Teaching Methods Discussion,Handout Response to Teaching Verbalize understanding Education Handouts Provided Heart Healthy Eating Nutrition Therapy Barriers to Learning No Barriers RD phone number provided Yes Patient aware of follow up options Yes Anticipated Discharge Needs: cardiac diet Revisit per MD consult or patient Sign Off request:
[2019-09-30] MEDS: oxyCODONE /ACETAMINOPHEN 5-325MG TAB PO PRN (22:09)
[2019-10-01] MEDS: FUROSEMIDE 40 MG/4 ML INJ IV SCH (05:33)
[2019-10-01] MEDS: HEPARIN 5,000 UNIT/1 ML VIAL SUB-Q SCH ×2 (05:34→15:07)
[2019-10-01] MEDS: IPRATROPIUM/ALBUTEROL SULFATE 3 ML AMPUL.NEB IH SCH ×2 (09:19→14:05)
[2019-10-01] MEDS: ARFORMOTEROL 15 MCG/2 ML NEBU IH SCH (09:20)
[2019-10-01] MEDS: BUDESONIDE 0.5 MG/2 ML NEBU IH SCH (09:20)
[2019-10-01] MEDS: FAMOTIDINE 20 MG TAB PO SCH (09:44)
[2019-10-01 13:40] VITALS: BP 105/62
--- NOTE | 2019-10-01 14:02 | Discharge Summary ---
Providers - Providers Date of Admission: 09/14/19 15:00 Date of discharge: 10/01/19 Attending physician: ERIK ANDERSON 09/14/19 21:37 Consult to Physician [CONS] Routine Comment: Consulting Provider: MENG SCHULER Physician Instructions: Reason For Exam: acute respiratory failure Primary care physician: [facility] Hospitalization Condition: Fair Hospital course: Patient really is overall presented with acute respiratory failure secondary to obstructive sleep apnea and obesity hypoventilation syndrome. Patient had a prolonged course of getting her oxygenation down to nasal cannula. Patient did well was diagnosed with COPD morbid obesity congestive heart failure. Patient was stabilized by pulmonology and was able to go home with Trilogy machine. Now that shows a machine is been approved patient is stable for discharge to be used and to follow with Dr. Schuler pulmonology as outpatient. Disposition: - TO HOME OR SELFCARE - Discharge Diagnoses (1) Acute respiratory failure with hypoxia and hypercarbia Status: Acute (2) COPD exacerbation Status: Acute (3) CHF (congestive heart failure) Status: Chronic Qualifiers: Heart failure type: combined systolic and diastolic Heart failure chronicity: acute on chronic Qualified Code(s): I50.43 - Acute on chronic combined systolic (congestive) and diastolic (congestive) heart failure Comment: She is not sure about diagnosis of CHF. Has never been diagnosed with CHF. (4) Tobacco abuse counseling Status: Acute Comment: She'll informed she should not smoke cigarettes or marijuana at this time. Core Measure Documentation - Palliative Care Palliative Care/ Comfort Measures: Not Applicable - Core Measures Any of the following diagnoses?: none Exam - Constitutional Vitals: Temp Pulse Resp BP Pulse Ox 98.5 F 91 H 20 105/62 91 10/01/19 13:00 10/01/19 13:00 10/01/19 13:00 10/01/19 13:00 10/01/19 13:00 General appearance: Present: no acute distress, well-nourished - EENT Eyes: Present: PERRL ENT: hearing intact, clear oral mucosa - Neck Neck: Present: supple, normal ROM - Respiratory Respiratory effort: normal, other (he should so morbidly obese has decreased air entry.) Respiratory: bilateral: CTA - Cardiovascular Heart Sounds: Present: S1 & S2. Absent: rub, click - Extremities Extremities: pulses symmetrical, No edema Peripheral Pulses: within normal limits - Abdominal General gastrointestinal: Present: soft, non-tender, non-distended, normal bowel sounds Female genitourinary: Present: normal - Integumentary Integumentary: Present: clear, warm, dry - Musculoskeletal Musculoskeletal: gait normal, strength equal bilaterally - Psychiatric Psychiatric: appropriate mood/affect, intact judgment & insight - Neurologic Neurologic: CNII-XII intact, moves all extremities Plan Activity: fall precautions Weight Bearing Status: Partial Weight Bearing Diet: low fat Follow up with: RADHA CORBINEDON MD JOSSY [Primary Care Provider] - 7 Days Prescriptions: Arformoterol Nebu [Brovana Nebu] 15 mcg IH Q12HRT #1 ml Torsemide [Demadex] 20 mg PO TID #90 Digoxin [Lanoxin] 250 mcg PO DAILY #30 ALBUTEROL NEB's [Proventil 0.083% NEBS] 2.5 mg IH Q4H PRN #7 nebu PRN Reason: Shortness Of Breath/ Wheezing Lisinopril [Zestril TAB] 20 mg PO QDAY #30
--- NOTE | 2019-10-01 15:57 | Progress Note ---
Assessment and Plan Imp: 1. ELLY/OHS/Morbid obesity 2. Acute respiratory failure, hypoxia 3. A/C respiratory failure, hypercapnea 2/2 OHS 4. Acute CHF 5. R/o COPD Rec: 1. Cont. Lasix PO at d/c 2. Diamox prn 3. Already has home O2 4. Weight loss; should consider gastric bypass eval. as outpatient 5. Needs NIV at d/c 6. 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 Rocha here in [place] Plan of care reviewed with patient, she understands/agrees Subjective Date of service: 10/01/19 Principal diagnosis: A/C respiratory failure Interval history: No events. On NC. SOB near baseline. No new complaints. Active Medications Acetaminophen (Tylenol) 650 mg PO Q4H PRN PRN Reason: Pain MILD(1-3)/Fever >100.5/DOMINIQUE Last Admin: 09/26/19 17:30 Dose: 650 mg Documented by: Albuterol (Proventil) 2.5 mg IH Q4H PRN PRN Reason: Shortness Of Breath/ Wheezing Albuterol/Ipratropium (Duoneb *Not For Prn Use*) 1 ampul IH TIDRT [facility] Last Admin: 10/01/19 14:05 Dose: 1 ampul Documented by: Arformoterol Tartrate (Brovana Nebu) 15 mcg IH Q12HRT [facility] Last Admin: 10/01/19 09:20 Dose: 15 mcg Documented by: Budesonide (Pulmicort) 0.5 mg IH Q12HRT [facility] Last Admin: 10/01/19 09:20 Dose: 0.5 mg Documented by: Famotidine (Pepcid) 20 mg PO BID [facility] Last Admin: 10/01/19 09:44 Dose: 20 mg Documented by: Furosemide (Lasix) 40 mg IV 0600,1800 [facility] Last Admin: 10/01/19 05:33 Dose: 40 mg Documented by: Heparin Sodium (Porcine) (Heparin) 5,000 unit SUB-Q Q8HR [facility] Last Admin: 10/01/19 15:07 Dose: 5,000 unit Documented by: Metoclopramide HCl (Reglan) 10 mg IV Q6H PRN PRN Reason: Nausea And Vomiting Ondansetron HCl (Zofran) 4 mg IV Q8H PRN PRN Reason: Nausea And Vomiting Oxycodone/Acetaminophen (Percocet 5/325) 1 tab PO Q6H PRN PRN Reason: Pain, Moderate (4-6) Last Admin: 09/30/19 22:09 Dose: 1 tab Documented by: Sodium Chloride (Sodium Chloride Flush Syringe 10 Ml) 10 ml IV BID DEMOND Last Admin: 10/01/19 09:44 Dose: 10 ml Documented by: Sodium Chloride (Sodium Chloride Flush Syringe 10 Ml) 10 ml IV PRN PRN PRN Reason: LINE FLUSH Last Admin: 09/23/19 06:09 Dose: 10 ml Documented by: Objective Vital Signs - 12hr 10/01/19 10/01/19 10/01/19 03:57 07:40 08:00 Temperature 98.4 F 97.5 F L Pulse Rate 80 76 Pulse Rate [ 84 Anterior Bilateral Throughout] Respiratory 22 17 Rate Respiratory 20 Rate [Anterior Bilateral Throughout] Blood Pressure 147/80 110/53 O2 Sat by Pulse 91 97 Oximetry 10/01/19 10/01/19 10/01/19 09:24 10:00 13:00 Temperature 98.5 F Pulse Rate 91 H Pulse Rate [ Anterior Bilateral Throughout] Respiratory 18 20 Rate Respiratory Rate [Anterior Bilateral Throughout] Blood Pressure 105/62 O2 Sat by Pulse 98 91 Oximetry 10/01/19 14:00 Temperature Pulse Rate Pulse Rate [ 84 Anterior Bilateral Throughout] Respiratory Rate Respiratory 20 Rate [Anterior Bilateral Throughout] Blood Pressure O2 Sat by Pulse Oximetry Constitutional: no acute distress, other (morbidly obese) Eyes: non-icteric Neck: other (extremely large in circumference) Effort: normal Ascultation: Bilateral: diminished breath sounds (secondary to body habitus) Cardiovascular: regular rate and rhythm Gastrointestinal: normoactive bowel sounds, non-tender, non-distended, other (morbidly obese) Integumentary: normal Extremities: no cyanosis, pink and warm Neurologic: normal mental status, non-focal exam, pupils equal and round Psychiatric: mood appropriate, affect normal CBC and BMP: 09/21/19 04:58 09/24/19 07:43 ABG, PT/INR, D-dimer: ABG POC ABG pH 7.412 (7.35-7.45) 09/26/19 13:22 POC ABG pO2 92 (80-105) 09/26/19 13:22 POC ABG HCO3 54.5 (22-26 mml/L) 09/26/19 13:22 POC ABG Total CO2 > 50 (23-27mmol/L) 09/26/19 13:22 POC ABG O2 Sat 96 09/26/19 13:22 PT/INR, D-dimer PT 13.3 Sec. (12.2-14.9) 09/14/19 12:43 INR 1.02 (0.87-1.13) 09/14/19 12:43 Abnormal lab findings: Abnormal Labs 09/14/19 09/14/19 09/14/19 12:43 12:43 13:44 WBC 11.4 H Hgb MCH 24 L MCHC 29 L RDW 18.2 H Lymph % (Auto) Eos % (Auto) Lymph # Eos # Seg Neutrophils % Seg Neuts % (Manual) 84.0 H Lymphocytes % (Manual) 11.0 L Nucleated RBC % 3.0 H Seg Neutrophils # Seg Neutrophils # Man 9.6 H Lymphocytes # (Manual) POC ABG pH 7.207 L POC ABG pO2 59 L Sodium Potassium Chloride 88.5 L Carbon Dioxide 44 H* Creatinine 0.4 L Glucose POC Glucose Total Protein 9.0 H Albumin 3.4 L 09/14/19 09/15/19 09/15/19 13:58 07:35 07:35 WBC 12.0 H Hgb 9.7 L MCH 24 L MCHC 29 L RDW 18.0 H Lymph % (Auto) Eos % (Auto) Lymph # Eos # Seg Neutrophils % Seg Neuts % (Manual) 91.0 H Lymphocytes % (Manual) 5.0 L Nucleated RBC % 2.0 H Seg Neutrophils # Seg Neutrophils # Man 10.9 H Lymphocytes # (Manual) 0.6 L POC ABG pH 7.212 L POC ABG pO2 55 L Sodium 146 H Potassium 5.2 H Chloride 88.7 L Carbon Dioxide 49 H* Creatinine 0.4 L Glucose 101 H POC Glucose Total Protein Albumin 3.3 L 09/16/19 09/16/19 09/16/19 05:42 05:42 12:55 WBC Hgb MCH 25 L MCHC RDW 18.0 H Lymph % (Auto) 6.2 L Eos % (Auto) Lymph # 0.6 L Eos # Seg Neutrophils % 89.0 H Seg Neuts % (Manual) Lymphocytes % (Manual) Nucleated RBC % Seg Neutrophils # 9.2 H Seg Neutrophils # Man Lymphocytes # (Manual) POC ABG pH POC ABG pO2 Sodium Potassium 5.6 H Chloride 86.8 L Carbon Dioxide 50 H* Creatinine 0.4 L Glucose 117 H POC Glucose 146 H Total Protein 8.4 H Albumin 3.1 L 09/16/19 09/17/19 09/18/19 18:07 06:52 05:45 WBC Hgb MCH MCHC RDW Lymph % (Auto) Eos % (Auto) Lymph # Eos # Seg Neutrophils % Seg Neuts % (Manual) Lymphocytes % (Manual) Nucleated RBC % Seg Neutrophils # Seg Neutrophils # Man Lymphocytes # (Manual) POC ABG pH POC ABG pO2 Sodium Potassium 5.1 H D Chloride 82.4 L 85.9 L Carbon Dioxide 52 H* 44 H* D Creatinine 0.5 L 0.4 L Glucose POC Glucose 135 H Total Protein Albumin 09/21/19 09/21/19 09/22/19 04:58 04:58 22:15 WBC Hgb MCH 24 L MCHC RDW 17.9 H Lymph % (Auto) Eos % (Auto) 4.6 H Lymph # Eos # 0.5 H Seg Neutrophils % 71.1 H Seg Neuts % (Manual) Lymphocytes % (Manual) Nucleated RBC % Seg Neutrophils # 7.8 H Seg Neutrophils # Man Lymphocytes # (Manual) POC ABG pH POC ABG pO2 Sodium Potassium Chloride 85.7 L Carbon Dioxide 50 H* Creatinine 0.5 L Glucose POC Glucose 114 H Total Protein Albumin 09/24/19 07:43 WBC Hgb MCH MCHC RDW Lymph % (Auto) Eos % (Auto) Lymph # Eos # Seg Neutrophils % Seg Neuts % (Manual) Lymphocytes % (Manual) Nucleated RBC % Seg Neutrophils # Seg Neutrophils # Man Lymphocytes # (Manual) POC ABG pH POC ABG pO2 Sodium Potassium Chloride 87.7 L Carbon Dioxide 39 H D Creatinine 0.4 L Glucose POC Glucose Total Protein Albumin Chest x-ray: report reviewed, image reviewed
== END 2019-10-01 17:00 | disposition home or self-care (01) | DRG 189 ==
LOC: ED 12:06 → IMCU 15:00 → 4A 09-22 17:52
PROVIDERS: ADMIT Internal Medicine; ATTEND Internal Medicine
PROC: 4A033R1 Measurement of Arterial Saturation, Peripheral, Percutaneous Approach (ICD-10-PCS; principal; 2019-09-14)
PROC: 5A09357 Assistance with Respiratory Ventilation, Less than 24 Consecutive Hours, Continuous Positive Airway Pressure (ICD-10-PCS; 2019-09-14)
PROC: 5A09357 Assistance with Respiratory Ventilation, Less than 24 Consecutive Hours, Continuous Positive Airway Pressure (ICD-10-PCS; 2019-09-15)
PROC: 5A09357 Assistance with Respiratory Ventilation, Less than 24 Consecutive Hours, Continuous Positive Airway Pressure (ICD-10-PCS; 2019-09-16)
PROC: 5A09357 Assistance with Respiratory Ventilation, Less than 24 Consecutive Hours, Continuous Positive Airway Pressure (ICD-10-PCS; 2019-09-17)
PROC: 5A09357 Assistance with Respiratory Ventilation, Less than 24 Consecutive Hours, Continuous Positive Airway Pressure (ICD-10-PCS; 2019-09-18)
PROC: 5A09357 Assistance with Respiratory Ventilation, Less than 24 Consecutive Hours, Continuous Positive Airway Pressure (ICD-10-PCS; 2019-09-19)
PROC: 5A09357 Assistance with Respiratory Ventilation, Less than 24 Consecutive Hours, Continuous Positive Airway Pressure (ICD-10-PCS; 2019-09-20)
PROC: 5A09357 Assistance with Respiratory Ventilation, Less than 24 Consecutive Hours, Continuous Positive Airway Pressure (ICD-10-PCS; 2019-09-21)
PROC: 5A09357 Assistance with Respiratory Ventilation, Less than 24 Consecutive Hours, Continuous Positive Airway Pressure (ICD-10-PCS; 2019-09-22)
PROC: 5A09357 Assistance with Respiratory Ventilation, Less than 24 Consecutive Hours, Continuous Positive Airway Pressure (ICD-10-PCS; 2019-09-24)
PROC: 5A09357 Assistance with Respiratory Ventilation, Less than 24 Consecutive Hours, Continuous Positive Airway Pressure (ICD-10-PCS; 2019-09-25)
PROC: 5A09357 Assistance with Respiratory Ventilation, Less than 24 Consecutive Hours, Continuous Positive Airway Pressure (ICD-10-PCS; 2019-09-26)
PROC: 5A09357 Assistance with Respiratory Ventilation, Less than 24 Consecutive Hours, Continuous Positive Airway Pressure (ICD-10-PCS; 2019-09-28)
PROC: 5A09357 Assistance with Respiratory Ventilation, Less than 24 Consecutive Hours, Continuous Positive Airway Pressure (ICD-10-PCS; 2019-09-29)
PROC: 5A09357 Assistance with Respiratory Ventilation, Less than 24 Consecutive Hours, Continuous Positive Airway Pressure (ICD-10-PCS; 2019-09-30)
PROC: 5A09357 Assistance with Respiratory Ventilation, Less than 24 Consecutive Hours, Continuous Positive Airway Pressure (ICD-10-PCS; 2019-10-01)
DX: J96.21 Acute and chronic respiratory failure with hypoxia (principal); J44.1 Chronic obstructive pulmonary disease with (acute) exacerbation; I50.43 Acute on chronic combined systolic (congestive) and diastolic (congestive) heart failure; R53.2 Functional quadriplegia; J96.22 Acute and chronic respiratory failure with hypercapnia; E87.6 Hypokalemia; E44.1 Mild protein-calorie malnutrition; I11.0 Hypertensive heart disease with heart failure; E66.2 Morbid (severe) obesity with alveolar hypoventilation; Z68.45 Body mass index [BMI] 70 or greater, adult; Z71.3 Dietary counseling and surveillance; Z82.49 Family history of ischemic heart disease and other diseases of the circulatory system
CPT/HCPCS: 36415; 36600; 71045; 80048; 80053; 82550; 82803; 82962; 83036; 83735; 83880; 84484; 85007; 85025; 85610; 85730; 93005; 93010; 94640; 94644; 94660; 94760; 96360; G0378; J0610; J1120; J1170; J1644; J1650; J1940; J1956; J2930